=== PATIENT | male | born 1935 | race Caucasian/White ===

== ENCOUNTER 2016-05-20 12:45 | Inpatient (IN) ==
[2016-05-20] MEDS ORDERED: ALLEGRA PO PRN (13:47)
[2016-05-20] MEDS ORDERED: TYLENOL PO PRN ×2 (13:47)
[2016-05-20] MEDS: NS 1,000 ML IV SCH (14:21)
[2016-05-20] MEDS: DUONEB (A & A) INH SCH (14:34)
[2016-05-20 14:38] LABS: ALLEN TEST YES; BLOOD TYPE ARTERIAL; DRAW SITE L RADIAL; METHB 1.6 % (0.0-1.5); O2(CT) 15.8 mL/dL (15.0-23.0); PCO2(98.6) 31 mmHg (35-45); PO2(98.6) 55 mmHg (60-100); SAMPLE BLOOD; SAO2 92.5 % (95.0-100.0); THB 12.7 g/dL (11.5-17.4); pH(98.6) 7.52 (7.35-7.45)
[2016-05-20 14:43] LABS: MODALITY ROOM AIR
--- NOTE | 2016-05-20 14:49 | Diag Imaging Result Document ---
PROCEDURE NAME: CHEST-PORTABLE - 05/20/2016 SINGLE FRONTAL RADIOGRAPH OF THE CHEST: COMPARISON: 04/26/2016. FINDINGS: There is mild elevation of the right hemidiaphragm and there is increased opacity at the right lung base suggesting atelectasis and/or infiltrate. Pneumonia cannot be excluded. A followup PA and lateral radiograph is recommended. The left lung is clear. Cardiac silhouette is unremarkable. IMPRESSION: Left basilar opacity suggesting atelectasis and/or infiltrate as described. Followup PA and lateral radiograph is recommended.
[2016-05-20 15:14] LABS: BASO% 0.1 % (0.0-0.8); HEMOGLOBIN 12.5 g/dL (14.0-18.0); IMM GRAN# 0.13 X1000 (0.0-0.04); IMM GRAN% 0.5 % (0.0-0.5); LYMPH# 0.84 X1000 (1.2-3.4); LYMPH% 3.3 % (20.5-51.1); MANUAL DIFF NEEDED? YES; MCH 28.9 PG (27-31); MCHC 34.7 g/dL (33-37); MCV 83.1 FL (81-99); MONO# 1.27 X1000 (0.11-0.59); MPV 10.1 FL (7.4-10.4); NEUT% 91.1 % (42.2-75.2); PLT 324 X1000 (130-400); RBC 4.33 XMIL (4.7-6.1)
[2016-05-20 15:33] LABS: AGAP 15; ALBUMIN 2.8 g/dL (3.5-5.0); ALKALINE PHOSPHATASE 67 U/L (32-122); BUN 33 mg/dL (8-22); CALCIUM 8.5 mg/dL (8.8-10.2); CHLORIDE 94 mmol/L (98-107); COSMO 274; GOT 31 U/L (10-34); GPT 10 U/L (10-44); POTASSIUM 4.1 mmol/L (3.5-5.1); SODIUM 131 mmol/L (136-145); TCO2 22 mmol/L (25-35); TOTAL BILIRUBIN 1.18 mg/dL (0.20-1.00); TOTAL PROTEIN 6.4 g/dL (6.3-8.3)
[2016-05-20 15:34] LABS: CK PROFILE 283 U/L (24-204)
[2016-05-20] MEDS: ZOSYN 3.375 GM/NS 50 ML IV SCH ×2 (15:54→21:00)
[2016-05-20] MEDS: LOVENOX SUBQ SCH (15:55)
[2016-05-20] MEDS ORDERED: VANCOMYCIN IV PER PHARMACY MISC SCH (16:30)
[2016-05-20 16:46] LABS: BANDS 38 % (0-1); LYMPHS 10 % (21-51); MONO 4 % (1-9)
[2016-05-20 16:51] LABS: CK INDEX 1.4 (0.0-2.5); CK-MB 3.98 ng/mL (0.0-5.0)
[2016-05-20] MEDS: LEVAQUIN 500 MG/D5W 100 ML IV SCH (17:22)
[2016-05-20] MEDS ORDERED: VANCOMYCIN 1.3 GM in NS 250 ML IV ONE (18:00)
--- NOTE | 2016-05-20 18:46 | HISTORY AND PHYSICAL ---
PRIMARY CARE PHYSICIAN: Angel Reyna M.D. CHIEF COMPLAINT: Shortness of breath, alteration of mental status. HISTORY OF PRESENT ILLNESS: This 81-year-old, white male with a very complicated past medical history presents for evaluation of above-mentioned symptoms. Current history of present illness began at the end of March. At that time, patient was admitted to [facility] with a bronchiectasis exacerbation. He was treated with broad-spectrum antibiotic therapy and discharged home in early April on Augmentin therapy. Initially, patient did reasonably well. Unfortunately, over the course of the last several days, he has developed an increasing cough, congestion, wheezing, decreased p.o. intake, weakness, and fatigue. His cough has been intermittently productive of purulent sputum. Since Wednesday, his condition has considerably progressed. The patient's activity level decreased considerably to minimal activity by Wednesday. He has had alteration of his mental status since Wednesday. Patient's states that he has been unable to carry on an accurate conversation. She denies any focal deficits associated. He has not had significant water or food since Wednesday. Patient was evaluated initially in the office. He required wheelchair assistance. Because of his poor condition with significant concern for repeat underlying bronchiectasis exacerbation, patient was admitted to the hospital for full evaluation and management. Of note, he denies fevers, chills, vomiting, chest pains, palpitations, change in bowel movements, and change in urination. He has had some nausea. PAST MEDICAL HISTORY: 1. Abnormal skin examination with multiple actinic keratoses and seborrheic keratoses. 2. History of acute cholecystitis status post laparoscopic cholecystectomy in 1984 without postoperative complications today. 3. History of recurrent acute pancreatitis. 4. Folic acid deficiency. 5. Vitamin B12 deficiency. 6. Benign prostatic hypertrophy. 7. Bronchiectasis. 8. Right bundle branch block. 9. History of chest pain status post negative cardiac evaluation in 2012. 10. Depression/anxiety. 11. Type 2 diabetes. 12. Insomnia. 13. History of diverticulitis in the . 14. Reflux disease. 15. Hypertension. 16. Hypertriglyceridemia. 17. History of a T12 compression fracture in 2010. 18. Right inguinal hernia status post surgical intervention in 2015. 19. Hyperlipidemia. 20. Irritable bowel syndrome. 21. Chronic low back pain status post L4-L5 microdiscectomy in February 2009. 22. Osteoarthritis. 23. Peripheral neuropathy. 24. Pulmonary nodule followed by Dr. Loera. 25. History of acute appendicitis status post open appendectomy in 1969. CURRENT MEDICATIONS: 1. Mildred 180 mg daily as needed. 2. CoQ10 100 mg daily. 3. Flexeril 10 mg 1/2 to 1 tablet 3 times daily as needed. 4. Duloxetine 60 mg daily. 5. Folic acid 1 mg daily. 6. DuoNeb 3 times daily. 7. Lisinopril 40 mg at bedtime. 8. Lyrica 150 mg twice a day. 9. MiraLAX daily as needed. 10. Omeprazole 40 mg daily. 11. Pravastatin 40 mg at bedtime. 12. Phenergan as needed. 13. Senna S twice daily as needed. 14. Flomax 0.4 mg daily. 15. Vitamin B12, 1000 mg daily. 16. Zofran as needed. ALLERGIES: Patient answered no known drug allergies. SOCIAL HISTORY: Patient smokes as much as 2 packs per day starting at age 16. Unfortunately, he continues to smoke 4-5 cigarettes per day. He quit alcohol in 2003. He denies illicit drug use. 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 He enjoys watching sports. He does not exercise routinely. FAMILY HISTORY: Patient's father passed at age 86 secondary to complications of a stroke. Patient's mother passed at age 92 secondary to complications of leukemia. REVIEW OF SYSTEMS: A 12 point review of systems was performed. Pertinent positives are noted in history of present illness. PHYSICAL EXAMINATION: VITAL SIGNS: Temperature 98.4 degrees, heart rate 99, respirations 20, blood pressure is 150/72. GENERAL: Ill-appearing, tachypneic, mild respiratory distress. HEENT: Normocephalic, atraumatic. Pupils equal, round, reactive to light. Extraocular muscles intact. Sclerae anicteric. [place] conjunctivae. Nasopharynx clear without exudate. NECK: Supple. No lymphadenopathy. No thyromegaly. No bruits auscultated. CARDIOVASCULAR: Borderline tachycardic. Regular rhythm. No significant murmurs, rubs, or gallops. PULMONARY: Crackles at the right base. Occasional wheeze. ABDOMEN: Soft, nontender, nondistended. Positive bowel sounds. EXTREMITIES: Moves all extremities well. No significant clubbing, cyanosis, or edema. DERMATOLOGIC: Evaluation reveals no evidence of rash. LABORATORY DATA: White blood cell count 25.40, hemoglobin 12.5, hematocrit 36.0 , platelet count 324,000. 38% banded neutrophils, pH 7.52, pCO2 31, PO2 55, bicarbonate 27. Sodium 131, potassium 4.1, chloride 94, bicarb 22, BUN 33, creatinine 0.8, glucose 166, calcium 8.5, total bilirubin 1.18, total protein 6.4, albumin 2.8, alkaline phosphatase 67, AST 31, ALT 10, CK total 283, CK MB 3.98, troponin 0.102. Chest x-ray revealed right basilar opacity suggesting atelectasis and/or infiltrate. ASSESSMENT AND PLAN: An 81-year-old white male with a complicated past medical history as noted presents for evaluation of alteration of mental status and shortness of breath. A full evaluation has revealed a presumed pneumonia/bronchiectasis exacerbation. White blood cell count and his current clinical condition is concerning for systemic inflammatory response syndrome/sepsis. The patient will be admitted to the hospital for full evaluation and management. 1. Admit to General Medicine. 2. Acute exacerbation of chronic bronchiectasis/pneumonia - At this point, broad -spectrum antibiotics are appropriate. Patient recently was admitted and treated with Augmentin therapy as an outpatient. Because of his potential recent exposures, we will start patient on levofloxacin and Zosyn therapy. We will add MRSA coverage. We will continue DuoNeb. We will check sputum cultures and blood cultures. We will follow patient's clinical course closely. 3. Systemic inflammatory response syndrome/sepsis - With an elevated white blood cell count and alteration of mental status, I am very concerned. His hemodynamics at this point are acceptable. We will start broad-spectrum antibiotics as noted. We will treat patient with IV fluids. Should there be any change in his condition, we will have a low threshold for transfer to the ICU. 4. Elevated CK and minimally elevated troponin - This is certainly concerning for a non-ST- elevation myocardial infarction. In the setting of underlying systemic inflammatory response syndrome/sepsis, I feel treatment of his underlying condition is most appropriate. We will follow serial enzymes. We will aggressively manage patient's underlying infection as noted. This will be followed closely as well. 5. Hypoxia - We will continue patient on oxygen per protocol. 6. Diabetes - We will remain aware. We will follow patient with sliding scale insulin. 7. Hypertension - For now, we will hold his antihypertensive agents. We will resume these once appropriate. 8. Peripheral neuropathy - Patient has longstanding disease, but in the setting of AMS, he is asymptomatic. We will hold his Lyrica therapy. 9. Fluid, electrolytes, nutrition. We will monitor electrolytes. Normal saline at 100 mL an hour. NPO prophylaxis. Patient will be placed on subcutaneous Lovenox. [facility]
[2016-05-20] MEDS: PRAVACHOL PO SCH (21:00)
[2016-05-20] MEDS: MUCINEX PO SCH (21:00)
[2016-05-20 22:39] LABS: CK INDEX 1.3 (0.0-2.5); CK-MB 3.92 ng/mL (0.0-5.0)
[2016-05-20] MEDS ORDERED: ATIVAN IV PRN (22:54)
[2016-05-21 02:06] LABS: URINE SOURCE CATH
[2016-05-21 02:18] LABS: BILIRUBIN URINE NEGATIVE (NEGATIVE); BLOOD URINE NEGATIVE (NEGATIVE); CLARITY CLEAR (CLEAR); COLOR YELLOW; GLUCOSE URINE NEGATIVE (NEGATIVE); LEUKOCYTES URINE NEGATIVE (NEGATIVE); NITRITE URINE NEGATIVE (NEGATIVE); PH URINE 6.5; PROTEIN URINE 100 mg/dL (NEGATIVE); URINE CULTURE NEEDED? YES; URINE EPITHELIAL CELLS <10 /HPF (<10); URINE RBC <10 /HPF (<10); URINE WBC <10 /HPF (<10); UROBILINOGEN URINE 0.2 EU/dL (0.2-1.0)
[2016-05-21 03:06] LABS: UR AMPHETAMINES QUAL NONE DETECTED (NONE DETECT); UR BARBITUATES QUAL NONE DETECTED (NONE DETECT); UR BENZODIAZEPIN QUAL NONE DETECTED (NONE DETECT); UR CANNABINOIDS QUAL NONE DETECTED (NONE DETECT); UR COCAINE QUAL NONE DETECTED (NONE DETECT); UR METHADONE QUAL NONE DETECTED (NONE DETECT); UR OPIATES QUAL PRESUMPTIVE POSITIVE (NONE DETECT); UR OXYCODONE QUAL NONE DETECTED (NONE DETECT); UR PCP QUAL NONE DETECTED (NONE DETECT)
[2016-05-21] MEDS: ZOSYN 3.375 GM/NS 50 ML IV SCH ×4 (04:04→21:14)
[2016-05-21] MEDS: NS 1,000 ML IV SCH ×2 (04:05→21:12)
[2016-05-21 05:46] LABS: AGAP 12; ALBUMIN 2.6 g/dL (3.5-5.0); ALKALINE PHOSPHATASE 65 U/L (32-122); BUN 28 mg/dL (8-22); CALCIUM 7.9 mg/dL (8.8-10.2); CHLORIDE 101 mmol/L (98-107); COSMO 277; GOT 30 U/L (10-34); GPT 10 U/L (10-44); POTASSIUM 3.7 mmol/L (3.5-5.1); SODIUM 136 mmol/L (136-145); TCO2 23 mmol/L (25-35); TOTAL BILIRUBIN 1.07 mg/dL (0.20-1.00); TOTAL PROTEIN 5.1 g/dL (6.3-8.3)
[2016-05-21 05:52] LABS: EOS# 0.01 X1000 (0.0-0.7); HEMATOCRIT 32.2 % (42.0-52.0); HEMOGLOBIN 11.2 g/dL (14.0-18.0); IMM GRAN# 0.17 X1000 (0.0-0.04); IMM GRAN% 0.8 % (0.0-0.5); LYMPH# 1.25 X1000 (1.2-3.4); LYMPH% 5.8 % (20.5-51.1); MANUAL DIFF NEEDED? YES; MCH 28.6 PG (27-31); MCHC 34.8 g/dL (33-37); MCV 82.4 FL (81-99); MONO# 1.31 X1000 (0.11-0.59); MONO% 6.1 % (1.7-9.3); MPV 10.3 FL (7.4-10.4); NEUT% 87.3 % (42.2-75.2); PLT 303 X1000 (130-400); RBC 3.91 XMIL (4.7-6.1)
[2016-05-21] MEDS: PRILOSEC PO SCH (06:09)
--- NOTE | 2016-05-21 06:18 | EKG Report ---
Test Performed on : 05/20/2016 1:51:30 PM Test Reason : AMS Blood Pressure : / mmHG Vent. Rate : 102 BPM Atrial Rate : 102 BPM P-R Int : 156 ms QRS Dur : 142 ms QT Int : 378 ms P-R-T Axes : 079 -42 050 degrees QTc Int : 492 ms Sinus tachycardia. Left axis deviation Right bundle branch block Abnormal ECG When compared with ECG of 26-APR-2016 09:06, premature atrial complexes. are no longer present Unconfirmed Result
[2016-05-21 08:46] LABS: BANDS 4 % (0-1); LYMPHS 6 % (21-51); MONO 8 % (1-9)
[2016-05-21] MEDS ORDERED: CALMOSEPTINE OINTMENT TOP PRN (08:46)
--- NOTE | 2016-05-21 10:04 | Diag Imaging Result Document ---
PROCEDURE NAME: HEAD W/O CONTRAST - 05/21/2016 CT OF THE HEAD WITHOUT CONTRAST: FINDINGS: There is some periventricular white matter lucency particularly in the area of the frontal horns. There is no evidence of mass effect, bleed, or abnormal extraaxial fluid collection. The visualized paranasal sinuses are without evidence of air-fluid level and there are no acute bony abnormalities. There is a calcification in the left basal ganglia and a small lacune present near the genu of the right internal capsule. These abnormalities were also present at the time of the previous study of 07/27/2015. IMPRESSION: Chronic microvascular changes. No evidence of acute intracranial disease.
[2016-05-21] MEDS: MIRALAX PO SCH (10:40)
[2016-05-21] MEDS: VITAMIN B-12 PO SCH (10:40)
[2016-05-21] MEDS: MUCINEX PO SCH ×2 (10:40→21:14)
[2016-05-21] MEDS: FLOMAX PO SCH (10:41)
[2016-05-21] MEDS: COENZYME Q10 PO SCH (10:41)
[2016-05-21 12:28] LABS: INR 1.01; PROTIME 10.7 Seconds (9.2-11.7); PTT 35.4 Seconds (22.0-36.0)
[2016-05-21] MEDS ORDERED: NS 250 ML ONE (12:38)
[2016-05-21] MEDS: LOVENOX SUBQ SCH (15:13)
[2016-05-21] MEDS: FOLIC ACID PO SCH (15:14)
[2016-05-21] MEDS: CYMBALTA PO SCH (15:14)
[2016-05-21] MEDS: LEVAQUIN 500 MG/D5W 100 ML IV SCH (15:17)
[2016-05-21] MEDS: VANCOMYCIN 1 GM/NS 250 ML IV SCH (17:51)
[2016-05-21] MEDS: PRAVACHOL PO SCH (21:14)
--- NOTE | 2016-05-21 21:32 | PROGRESS NOTE ---
DATE: 05/21/2016 SUBJECTIVE: The patient was originally seen this morning. At that time, his overall condition had improved slightly. He was requiring supplemental oxygen therapy. He remained confused, but was more interactive. Because of the confusion, a CT scan of the head was performed. This returned with chronic microvascular ischemic changes. No evidence of acute process was identified. The patient was continued on antibiotic therapy and bronchodilators throughout the day. This evening, patient's condition had further improved. He was able to recognize me this evening, although knew only mild 1st name. He was sitting in a chair with assistance by his son. There has been no evidence of fevers, chills, nausea, vomiting, or chest discomfort. OBJECTIVE: Vital signs: Temperature maximum 99.2 degrees, heart rate 61-99, respirations 18-36, blood pressure 124-159/53-76. General: Chronically ill-appearing, in no acute distress. Cardiovascular: Regular rate and rhythm. No significant murmurs, rubs, or gallops. Pulmonary: Rhonchi and crackles at the left base. Abdomen: Soft, nontender, nondistended. Positive bowel sounds. Extremities: Moves all extremities well. No significant clubbing, cyanosis, or edema. Dermatologic: Evaluation reveals no evidence of rash. LABORATORY DATA: White blood cell count 21.57, hemoglobin 11.2, hematocrit 32.2, platelet count 303,000. Sodium 136, potassium 3.7, chloride 101, bicarb 23, BUN 28, creatinine 1.8, glucose 99, calcium 7.9, total bilirubin 1.07, total protein is 5.1, albumin 2.6, alkaline phosphatase 65, AST 38, ALT 10. ASSESSMENT AND PLAN: 1. Acute exacerbation of chronic bronchiectasis/pneumonia-at this point, broad-spectrum antibiotics remain appropriate. Blood cultures have been sent and are pending. A sputum culture was sent today. As his overall condition is improving, we will continue his current regimen, including antibiotics, bronchodilators and aspiration precautions. 2. Systemic inflammatory response syndrome/sepsis-patient white blood cell count has improved slightly. His mental status has also improved slightly. For now, we will continue aggressive antibiotic coverage and IV fluids. We will follow his clinical course closely. 3. Elevated creatinine kinase/minimally elevated troponin-this is concerning for underlying heart disease. Unfortunately, in the setting of underlying infection, we are unable to aggressively manage this condition. We will continue treatment of his underlying infection. As an outpatient, we will plan to pursue further cardiac evaluation. 4. Hypoxia-we will continue oxygen per protocol. 5. Diabetes-we will continue patient on sliding scale insulin. 6. Hypertension-patient's blood pressure is stable at present time. We will continue to hold his antihypertensive agents. 7. Peripheral neuropathy-patient has longstanding disease. He is treated with Lyrica as an outpatient. He has not had this resumed as his mental status has not returned to baseline. We will continue to follow this. 8. Alteration of mental status-patient's mental status is slowly improving. As above, his CT scan returned with microvascular ischemic changes. We will continue supportive care. 9. Narcotic drug use-patient's urine drug screen returned presumptive positive for narcotics. This is concerning as I was unaware he was taking any narcotic agents. The question has been raised whether patient took more narcotic agents resulting in an underlying aspiration event. We will continue to follow. 10. Disposition-at this point, patient continues to require nursing home care in the hospital setting. We will plan discharge home once appropriate.
[2016-05-22] MEDS: NS 1,000 ML IV SCH ×3 (01:29→18:59)
[2016-05-22] MEDS: ZOSYN 3.375 GM/NS 50 ML IV SCH ×4 (03:31→20:46)
[2016-05-22 05:36] LABS: AGAP 15; ALBUMIN 2.3 g/dL (3.5-5.0); ALKALINE PHOSPHATASE 55 U/L (32-122); BUN 24 mg/dL (8-22); CHLORIDE 104 mmol/L (98-107); COSMO 282; GOT 25 U/L (10-34); GPT 11 U/L (10-44); POTASSIUM 3.3 mmol/L (3.5-5.1); SODIUM 139 mmol/L (136-145); TCO2 20 mmol/L (25-35); TOTAL BILIRUBIN 0.78 mg/dL (0.20-1.00); TOTAL PROTEIN 5.4 g/dL (6.3-8.3)
[2016-05-22 05:49] LABS: BASO% 0.3 % (0.0-0.8); EOS# 0.05 X1000 (0.0-0.7); EOS% 0.3 % (0.0-10.0); HEMOGLOBIN 10.9 g/dL (14.0-18.0); IMM GRAN# 0.48 X1000 (0.0-0.04); IMM GRAN% 3.2 % (0.0-0.5); LYMPH# 1.61 X1000 (1.2-3.4); LYMPH% 10.8 % (20.5-51.1); MANUAL DIFF NEEDED? YES; MCH 29.1 PG (27-31); MCHC 35.2 g/dL (33-37); MCV 82.9 FL (81-99); MONO% 9.4 % (1.7-9.3); MPV 10.2 FL (7.4-10.4); PLT 277 X1000 (130-400); RBC 3.74 XMIL (4.7-6.1)
[2016-05-22] MEDS: PRILOSEC PO SCH (06:14)
[2016-05-22 06:59] LABS: BANDS 2 % (0-1); HYPOCHROM 1+; LYMPHS 8 % (21-51); MONO 8 % (1-9)
[2016-05-22] MEDS: VITAMIN B-12 PO SCH (08:15)
[2016-05-22] MEDS: MUCINEX PO SCH ×2 (08:15→20:44)
[2016-05-22] MEDS: PRINIVIL PO SCH (08:15)
[2016-05-22] MEDS: MIRALAX PO SCH (08:15)
[2016-05-22] MEDS: CYMBALTA PO SCH (08:15)
[2016-05-22] MEDS: LYRICA PO SCH ×2 (08:15→20:45)
[2016-05-22] MEDS: FLOMAX PO SCH (08:15)
[2016-05-22] MEDS: FOLIC ACID PO SCH (08:16)
[2016-05-22] MEDS: COENZYME Q10 PO SCH (08:16)
--- NOTE | 2016-05-22 11:26 | Diag Imaging Result Document ---
PROCEDURE NAME: CHEST-2 VIEWS - 05/22/2016 SEATED AP AND LATERAL RADIOGRAPH OF THE CHEST: COMPARISON: 05/20/2016. FINDINGS: There is grossly stable opacity at the right lung base suggesting infiltrate. No new consolidations are identified. Cardiac silhouette is stable. There has been interval placement of a right PICC line. The tip projects over the region of the atriocaval junction in the expected position. IMPRESSION: Grossly stable right basilar infiltrate as described.
[2016-05-22] MEDS: LOVENOX SUBQ SCH (14:23)
[2016-05-22] MEDS: LEVAQUIN 500 MG/D5W 100 ML IV SCH (15:26)
[2016-05-22] MEDS: VANCOMYCIN 1 GM/NS 250 ML IV SCH (17:46)
--- NOTE | 2016-05-22 18:46 | PROGRESS NOTE ---
DATE: 05/22/2016 SUBJECTIVE: This morning, patient's overall condition continues to very slowly improve. The patient is able to recognize me and voiced my first name, but unable to voice my last. He remains very weak, unable to stand without assistance. His pulmonary status is stable with oxygen supplementation. He has had no evidence of fevers and chills. He has had very little p.o. intake, largely secondary to refusing to take liquids. There has been no evidence of fevers, chills, nausea, vomiting, or chest discomfort. OBJECTIVE: Vital Signs: T-max is 98.4 degrees, heart rate 56-64, respirations 18, blood pressure 144-176/65-76. General: Well-nourished, well-developed, in no acute distress. Cardiovascular: Regular rate and rhythm. No significant murmurs, rubs, or gallops. Pulmonary: Crackles at the left base. Abdomen: Soft, nontender, nondistended. Positive bowel sounds. Extremities: Moves all extremities well. No significant clubbing, cyanosis, or edema. Dermatologic: Evaluation reveals no evidence of rash. LABORATORY DATA: White blood cell count 14.91, hemoglobin 10.9, hematocrit 31.0, platelet count 277,000. Sodium 139, potassium 3.3, chloride 104, bicarb 20, BUN 24, creatinine 0.7, glucose 97, calcium 8.0, total bilirubin 0.78, total protein 5.4, albumin 2.3, alkaline phosphatase 55, AST 25, ALT 11. ASSESSMENT AND PLAN: 1. Acute exacerbation of chronic bronchiectasis/pneumonia - The patient's blood cultures thus far are negative. His sputum culture is pending. Chest x-ray today has suggested no significant change. At this point, with the severity of his admitting symptoms, we will continue broad- spectrum antibiotics until further culture data is available. We will continue bronchodilators, aspiration precautions, and encourage incentive spirometry. 2. Systemic inflammatory response syndrome/sepsis- The patient's white blood cell count was grossly elevated upon admission. He had alteration of mental status. With aggressive management, he has achieved improvement, although mentation is not back to baseline. We will continue broad-spectrum antibiotics as noted. 3. Elevated CK/minimally elevated troponin - This likely was secondary to his acute illness. There has been no evidence of significant EKG changes. At this point, we will continue to monitor patient closely while hospitalized. Once his overall condition has improved, we will consider cardiac evaluation. 4. Hypoxia - We will continue patient on oxygen protocol. 5. Alteration of mental status - Patient's CT scan returned with microvascular ischemic changes. His mentation is improving, although not back to baseline. We will remain aware that patient could be exhibiting some withdrawal symptoms. He has been taking narcotic agents without my knowledge. We will follow this. 6. Diabetes - The patient will be continued on sliding scale insulin. 7. Hypertension - Patient's blood pressure is elevated. We will resume lisinopril therapy. We will follow this. 8. Narcotic drug use - As above, patient's urine drug screen returned with a presumptive positive. Patient's states she suspects he had been taken medication from a pain clinic. For now, we will follow. All pain medications have been held. 9. Disposition - At this point, patient continues to require [facility] care in a hospital setting. We will plan discharge home once appropriate.
[2016-05-22] MEDS: PRAVACHOL PO SCH (20:45)
[2016-05-23] MEDS: ZOSYN 3.375 GM/NS 50 ML IV SCH ×2 (03:28→08:43)
[2016-05-23 05:38] LABS: BASO% 0.3 % (0.0-0.8); EOS# 0.04 X1000 (0.0-0.7); EOS% 0.3 % (0.0-10.0); HEMATOCRIT 30.6 % (42.0-52.0); HEMOGLOBIN 10.5 g/dL (14.0-18.0); IMM GRAN# 1.01 X1000 (0.0-0.04); IMM GRAN% 7.6 % (0.0-0.5); LYMPH# 2.01 X1000 (1.2-3.4); LYMPH% 15.2 % (20.5-51.1); MANUAL DIFF NEEDED? YES; MCH 28.5 PG (27-31); MCHC 34.3 g/dL (33-37); MCV 83.2 FL (81-99); MONO# 1.62 X1000 (0.11-0.59); MONO% 12.2 % (1.7-9.3); MPV 9.9 FL (7.4-10.4); NEUT% 64.4 % (42.2-75.2); PLT 285 X1000 (130-400); RBC 3.68 XMIL (4.7-6.1)
[2016-05-23 06:04] LABS: AGAP 11; BUN 16 mg/dL (8-22); CALCIUM 7.6 mg/dL (8.8-10.2); CHLORIDE 105 mmol/L (98-107); COSMO 274; SODIUM 137 mmol/L (136-145); TCO2 21 mmol/L (25-35)
[2016-05-23] MEDS: PRILOSEC PO SCH (06:16)
[2016-05-23] MEDS: DUONEB (A & A) INH SCH ×9 (06:25→23:41)
[2016-05-23 07:01] LABS: BANDS 3 % (0-1); LYMPHS 17 % (21-51); MONO 10 % (1-9)
[2016-05-23] MEDS: LYRICA PO SCH ×2 (08:42→20:58)
[2016-05-23] MEDS: MUCINEX PO SCH ×2 (08:43→20:58)
[2016-05-23] MEDS: FOLIC ACID PO SCH (08:43)
[2016-05-23] MEDS: VITAMIN B-12 PO SCH (08:43)
[2016-05-23] MEDS: COENZYME Q10 PO SCH (08:43)
[2016-05-23] MEDS: PRINIVIL PO SCH (08:43)
[2016-05-23] MEDS: FLOMAX PO SCH (08:43)
[2016-05-23] MEDS: CYMBALTA PO SCH (08:43)
[2016-05-23] MEDS: MIRALAX PO SCH (08:44)
[2016-05-23] MEDS: ZOFRAN ODT PO PRN ×2 (09:38→18:47)
[2016-05-23] MEDS: KLOR-CON PO SCH ×2 (14:12→20:57)
[2016-05-23] MEDS: LOVENOX SUBQ SCH (14:13)
[2016-05-23] MEDS: NS 1,000 ML IV SCH (14:13)
[2016-05-23] MEDS: NORCO-7.5 PO SCH ×3 (14:13→20:58)
[2016-05-23] MEDS: LEVAQUIN 500 MG/D5W 100 ML IV SCH (14:14)
[2016-05-23] MEDS: PRAVACHOL PO SCH (20:59)
[2016-05-24] MEDS: DUONEB (A & A) INH SCH ×6 (03:54→23:28)
[2016-05-24] MEDS: FLOMAX PO SCH (08:53)
[2016-05-24] MEDS: PRILOSEC PO SCH (08:53)
[2016-05-24] MEDS: COENZYME Q10 PO SCH (08:53)
[2016-05-24] MEDS: CYMBALTA PO SCH (08:53)
[2016-05-24] MEDS: NORCO-7.5 PO SCH ×3 (08:53→20:09)
[2016-05-24] MEDS: FOLIC ACID PO SCH (08:54)
[2016-05-24] MEDS: MIRALAX PO SCH (08:54)
[2016-05-24] MEDS: LYRICA PO SCH ×2 (08:54→20:09)
[2016-05-24] MEDS: KLOR-CON PO SCH ×2 (08:54→20:09)
[2016-05-24] MEDS: VITAMIN B-12 PO SCH (08:54)
[2016-05-24] MEDS: MUCINEX PO SCH ×2 (08:54→20:09)
[2016-05-24] MEDS: PRINIVIL PO SCH (08:54)
[2016-05-24] MEDS: LOVENOX SUBQ SCH (13:58)
[2016-05-24] MEDS: LEVAQUIN 500 MG/D5W 100 ML IV SCH (13:58)
[2016-05-24] MEDS: PRAVACHOL PO SCH (20:09)
[2016-05-25] MEDS: DUONEB (A & A) INH SCH ×6 (03:12→22:48)
[2016-05-25] MEDS: PRILOSEC PO SCH (06:13)
[2016-05-25] MEDS: NORCO-7.5 PO SCH ×2 (09:31→15:01)
[2016-05-25] MEDS: MUCINEX PO SCH ×2 (09:31→20:14)
[2016-05-25] MEDS: LYRICA PO SCH ×2 (09:31→20:14)
[2016-05-25] MEDS: PRINIVIL PO SCH (09:31)
[2016-05-25] MEDS: VITAMIN B-12 PO SCH (09:31)
[2016-05-25] MEDS: FOLIC ACID PO SCH (09:31)
[2016-05-25] MEDS: FLOMAX PO SCH (09:31)
[2016-05-25] MEDS: COENZYME Q10 PO SCH (09:32)
[2016-05-25] MEDS: CYMBALTA PO SCH (09:32)
[2016-05-25] MEDS: MIRALAX PO SCH (09:33)
[2016-05-25] MEDS: KLOR-CON PO SCH ×2 (09:39→20:14)
--- NOTE | 2016-05-25 10:11 | Diag Imaging Result Document ---
PROCEDURE NAME: CHEST-2 VIEWS - 05/25/2016 CHEST X-RAY, TWO VIEWS: COMPARISON: 05/22/2016. FINDINGS: Lung volumes are lower with some elevation of the right hemidiaphragm. There is significant improvement in the diffuse bilateral mixed predominantly interstitial infiltrates/edema. The heart size remains normal. No pneumothorax or large effusion. Stable right PICC line. IMPRESSION: Significant improvement in aeration of the lungs.
[2016-05-25 10:20] LABS: BASO% 0.6 % (0.0-0.8); EOS# 0.13 X1000 (0.0-0.7); EOS% 0.7 % (0.0-10.0); HEMATOCRIT 33.2 % (42.0-52.0); HEMOGLOBIN 11.3 g/dL (14.0-18.0); IMM GRAN# 1.73 X1000 (0.0-0.04); LYMPH# 1.91 X1000 (1.2-3.4); MANUAL DIFF NEEDED? YES; MCH 28.6 PG (27-31); MCV 84.1 FL (81-99); MONO% 6.3 % (1.7-9.3); MPV 9.1 FL (7.4-10.4); NEUT% 71.4 % (42.2-75.2); PLT 385 X1000 (130-400); RBC 3.95 XMIL (4.7-6.1)
[2016-05-25 10:40] LABS: AGAP 13; ALBUMIN 2.3 g/dL (3.5-5.0); ALKALINE PHOSPHATASE 51 U/L (32-122); BUN 10 mg/dL (8-22); CALCIUM 7.7 mg/dL (8.8-10.2); CHLORIDE 104 mmol/L (98-107); COSMO 274; GOT 20 U/L (10-34); GPT 11 U/L (10-44); POTASSIUM 3.5 mmol/L (3.5-5.1); SODIUM 137 mmol/L (136-145); TCO2 20 mmol/L (25-35); TOTAL BILIRUBIN 0.34 mg/dL (0.20-1.00); TOTAL PROTEIN 4.9 g/dL (6.3-8.3)
[2016-05-25 11:49] LABS: BANDS 6 % (0-1); HYPOCHROM 1+; LYMPHS 12 % (21-51); MONO 10 % (1-9)
[2016-05-25] MEDS: LOVENOX SUBQ SCH (15:01)
[2016-05-25] MEDS: LEVAQUIN 500 MG/D5W 100 ML IV SCH (15:01)
[2016-05-25] MEDS: PRAVACHOL PO SCH (20:14)
[2016-05-25] MEDS: NORCO-7.5 PO PRN (20:15)
[2016-05-25] MEDS: DOXYCYCLINE 100 MG in NS 250 ML IV SCH (20:30)
--- NOTE | 2016-05-26 00:53 | PROGRESS NOTE ---
DATE: 05/25/2016 SUBJECTIVE: The events of the weekend were reviewed. In summary, patient's antibiotics were tapered to include only levofloxacin therapy. Patient continued on oxygen therapy, as well as, physical therapy. His overall condition slowly improved. His mentation improved nearing baseline. Patient was initially seen this morning. He was wearing oxygen therapy. He denies fevers, chills, nausea, vomiting, or chest discomfort. His shortness of breath had improved. Through the day, patient's oxygen was titrated off. This evening, patient continues to do well. His white blood cell count, however, has increased. His chest x-ray suggested improvement. OBJECTIVE: vital signs: T-max 98.8, heart rate, 85 to 96, respirations 15 to 18, blood pressure 134 to 154/54 to 67. General: Well nourished, well developed, in no acute distress. Cardiovascular: Regular rate and rhythm. No significant murmurs, rubs, or gallops. Pulmonary: Crackles at the left base. Adequate air movement. Abdomen: Soft, nontender, nondistended. Positive bowel sounds. Extremities: Moves all extremities well. No significant clubbing, cyanosis, or edema. Dermatologic: Reveals no evidence of rash. LABORATORY DATA: White blood cell count 17.35, hemoglobin 11.3, hematocrit 33.2, platelet count 385,000. Sodium 137, potassium 3.5, chloride 104, bicarb 20, BUN 10, creatinine 0.7, glucose 121, calcium 7.7, total bilirubin 0.34, total protein 4.9, albumin 2.3, alkaline phosphatase 51, AST 20, ALT 11. ASSESSMENT AND PLAN: 1. Acute exacerbation of chronic bronchiectasis/pneumonia - clinically, patient is improving. His chest x-ray also had suggested improvement. His white blood cell count, however, has increased since decreasing his antibiotic coverage. We will continue levofloxacin therapy. We will add doxycycline therapy. We will consider an Infectious Diseases consultation in the morning. We will continue aspiration precautions, and incentive spirometry as well. 2. Systemic inflammatory response syndrome - patient was diagnosed upon admission. Patient has achieved resolution with broad-spectrum antibiotic coverage. 3. Elevated CK/minimally elevated troponin - patient is currently asymptomatic. Once patient has resolved his bronchiectasis exacerbation, we will need to consider Cardiology consultation and intervention. 4. Hypoxia - as above, patient has been titrated off of oxygen therapy. We will remain aware. 5. Alteration of mental status - this likely was secondary to his underlying acute illness. We will remain aware also of patient's recent narcotic medication intervention. He has achieved near full resolution. We will continue to follow. 6. Diabetes - patient is treated with sliding scale insulin. 7. Hypertension - patient's blood pressure is reasonably controlled on his current regimen. 8. Narcotic use - as described previously, it appears the patient has been using MS Contin as an outpatient. I was not aware of this, nor was the patient forthcoming regarding this. He was placed on [place] over the weekend. His pain is controlled. 9. Disposition - at this point, patient continues to require prison care in the hospital setting. We will consider discharge home once appropriate.
[2016-05-26] MEDS: DUONEB (A & A) INH SCH ×4 (03:27→15:11)
[2016-05-26 05:10] LABS: BASO% 0.3 % (0.0-0.8); EOS# 0.08 X1000 (0.0-0.7); EOS% 0.6 % (0.0-10.0); HEMATOCRIT 31.1 % (42.0-52.0); HEMOGLOBIN 10.5 g/dL (14.0-18.0); IMM GRAN% 6.9 % (0.0-0.5); LYMPH% 21.6 % (20.5-51.1); MANUAL DIFF NEEDED? YES; MCH 28.4 PG (27-31); MCHC 33.8 g/dL (33-37); MCV 84.1 FL (81-99); MONO# 1.01 X1000 (0.11-0.59); MONO% 7.8 % (1.7-9.3); MPV 9.1 FL (7.4-10.4); NEUT% 62.8 % (42.2-75.2); PLT 419 X1000 (130-400)
[2016-05-26] MEDS: PRILOSEC PO SCH (06:12)
[2016-05-26 07:02] LABS: BANDS 2 % (0-1); LYMPHS 21 % (21-51); MONO 6 % (1-9)
[2016-05-26] MEDS: DOXYCYCLINE 100 MG in NS 250 ML IV SCH (08:13)
[2016-05-26] MEDS: VITAMIN B-12 PO SCH (09:12)
[2016-05-26] MEDS: PRINIVIL PO SCH (09:12)
[2016-05-26] MEDS: MIRALAX PO SCH (09:12)
[2016-05-26] MEDS: LYRICA PO SCH (09:12)
[2016-05-26] MEDS: MUCINEX PO SCH (09:13)
[2016-05-26] MEDS: FOLIC ACID PO SCH (09:13)
[2016-05-26] MEDS: FLOMAX PO SCH (09:13)
[2016-05-26] MEDS: CYMBALTA PO SCH (09:13)
[2016-05-26] MEDS: COENZYME Q10 PO SCH (09:13)
[2016-05-26] MEDS: LOVENOX SUBQ SCH (13:41)
[2016-05-26] MEDS: LEVAQUIN 500 MG/D5W 100 ML IV SCH (15:06)
[2016-05-26 16:56] VITALS: BP 161/75
[2016-05-26] MEDS: NORCO-7.5 PO PRN (17:35)
--- NOTE | 2016-05-26 22:34 | DISCHARGE SUMMARY ---
ADMISSION DATE: 05/20/2016 DISCHARGE DATE: 05/26/2016 ADMISSION DIAGNOSES: 1. Shortness of breath. 2. Alteration of mental status. DISCHARGE DIAGNOSES: 1. Acute exacerbation of chronic bronchiectasis/pneumonia. 2. Systemic inflammatory response syndrome, resolved. 3. Elevated CK/minimally elevated troponin. 4. Hypoxia, resolved. 5. Alteration in mental status resolved to baseline. 6. Diabetes, present on arrival. 7. Hypertension, present on arrival. 8. Narcotic use. PROCEDURES: 1. CT scan of the head was performed on 05/21/2016 which revealed chronic microvascular changes. No evidence of acute intracranial disease. 2. Multiple chest x-rays were performed. CONSULTATIONS: None. HISTORY AND PHYSICAL EXAMINATION: See admit note. PHYSICAL EXAMINATION PRIOR TO DISCHARGE: Vital Signs: Temperature 98.6 degrees , heart rate 79, respirations 16, blood pressure is 161/75. General: Well-nourished, well- developed, no acute distress. Cardiovascular: Regular rate and rhythm. No significant murmurs, rubs, or gallops. Pulmonary: Crackles at bilateral bases. Adequate air movement. Abdomen: Soft, nontender, nondistended. Positive bowel sounds. Extremities: Moves all extremities well. No significant clubbing, cyanosis, or edema. Dermatologic: Evaluation reveals no evidence of rash. LABORATORY DATA: White blood cell count 12.96, hemoglobin 10.5, hematocrit 31.1 , platelet count 419,000. HOSPITAL COURSE: The patient was admitted as per history and physical examination. Hospital course per condition is as follows. 1. Acute exacerbation of chronic bronchitis/pneumonia-upon admission, patient was noted to be critically ill. The patient was placed on broad-spectrum antibiotics in form of levofloxacin, Zosyn and vancomycin. Patient tolerated this very well. With broad- spectrum antibiotic coverage, patient's overall condition slowly improved. With improvement, patient's antibiotics were decreased to Levaquin only. With this the patient continues to improve clinically however white blood cell count increased. Doxycycline was added. The patient achieved improvement in white blood cell count. Patient will be discharged home with bronchodilators and Levofloxacin/doxycycline for an additional 2 weeks. 2. Systemic inflammatory response syndrome-upon admission patient was noted to be considerably ill. With aggressive management with both hydration and antibiotic coverage , patient's overall condition improved. We will continue to follow this as an outpatient. 3. Elevated CK/minimally elevated troponin-present time patient is asymptomatic. As patient continues to improve we will plan to refer patient to Cardiology for further evaluation and management. 4. Hypoxia-while hospitalized, patient required oxygen therapy. At time of discharge saturations were adequate on room air. This will be followed. 5. Alteration of mental status-upon admission, patient was noted to be considerably altered. Ultimately, we found that patient was receiving narcotic intervention per a pain specialist without my knowledge. I suspect the mental status change was secondary to narcotics in the setting of an acute illness. We will continue to follow this. 6. Diabetes-patient was treated with sliding scale insulin while hospitalized. We will follow this as an outpatient. 7. Hypertension-patient's blood pressure has fluctuated but overall has been reasonably controlled. Once again, this will be followed. 8. Hypertension-patient's blood pressure maintained adequate control while hospitalized. 9. Tobacco use-unfortunately, patient continues to intermittently use cigarettes. He understands associated risk. We will encourage cessation. 10. Narcotic abuse-at this point, patient appears to be taking narcotics without my knowledge. We discussed this in detail. The patient assured me that he would continue to pursue the least amount of effective medications. DISCHARGE CONDITION: Good. DISPOSITION: Discharge to home. MEDICATIONS: 1. Vitamin B12 1000 mcg daily. 2. Doxycycline 100 mg twice daily for 14 days. 3. Mildred 180 mg daily as needed. 4. Levofloxacin 500 mg daily for 14 days. 5. Acetaminophen 650 mg every 4 hours as needed. 6. DuoNeb every 4 hours as needed. 7. Flexeril 10 mg 3 times daily as needed. 8. Cymbalta 60 mg daily. 9. Folic acid 1 mg daily. 10. Guaifenesin 600 mg twice daily as needed. 11. Lisinopril 40 mg daily. 12. Omeprazole 40 mg daily. 13. Pravastatin 40 mg at bedtime. 14. MiraLAX 17 g in 8 ounces of juice daily. 15. Lyrica 200 mg twice daily. 16. Tamsulosin 0.4 mg daily. 17. Coenzyme Q10 100 mg daily. FOLLOWUP: The patient to follow with me in approximately 1 week. [facility]
--- NOTE | 2016-06-18 18:15 | DISCHARGE SUMMARY ---
ADMISSION DATE: 05/20/2016 DISCHARGE DATE: 05/26/2016 DISCHARGE SUMMARY ADDENDUM: After further review, patient was admitted with a white blood cell count of 25.40 with alteration of mental status and an elevated lactic acid level. Patient's condition does meet criteria for bronchiectasis/pneumonia with sepsis. In regards to his alteration of mental status, this likely represented a combination of his acute illness and decreased clearance of narcotic medications. This could be further classified as alteration of mental status secondary to an acute illness in addition to toxic encephalopathy secondary to medications.
== END 2016-05-26 18:45 | disposition home or self-care (01) | DRG 871 ==
LOC: DIRADM 12:45 → 3N 13:37 → 3S 19:18
PROVIDERS: ADMIT Internal Medicine; ATTEND Internal Medicine
DX: A41.9 Sepsis, unspecified organism (principal); J18.9 Pneumonia, unspecified organism; G92 Toxic encephalopathy; J47.0 Bronchiectasis with acute lower respiratory infection; E11.42 Type 2 diabetes mellitus with diabetic polyneuropathy; I45.10 Unspecified right bundle-branch block; J47.1 Bronchiectasis with (acute) exacerbation; R09.02 Hypoxemia; I10 Essential (primary) hypertension; L57.0 Actinic keratosis; L82.1 Other seborrheic keratosis; E53.8 Deficiency of other specified B group vitamins; N40.0 Benign prostatic hyperplasia without lower urinary tract symptoms; F41.8 Other specified anxiety disorders; G47.00 Insomnia, unspecified; K21.9 Gastro-esophageal reflux disease without esophagitis; E78.1 Pure hyperglyceridemia; K58.9 Irritable bowel syndrome, unspecified; G89.29 Other chronic pain; M54.5 Low back pain; M19.90 Unspecified osteoarthritis, unspecified site; R91.1 Solitary pulmonary nodule; F17.210 Nicotine dependence, cigarettes, uncomplicated; R74.8 Abnormal levels of other serum enzymes; F11.10 Opioid abuse, uncomplicated; T40.2X5A Adverse effect of other opioids, initial encounter; Z79.899 Other long term (current) drug therapy; Z82.3 Family history of stroke; Z80.6 Family history of leukemia; Z79.891 Long term (current) use of opiate analgesic
CPT/HCPCS: 36569; 70450; 71010; 71020; 80048; 80053; 81001; 82550; 82553; 82805; 84484; 85025; 85610; 85730; 87040; 87070; 87088; 87205; 93005; 94640; 94761; 94799; G0480; J1650; J2060; J2543; J3370; J7030; J7050; 80324; 80345; 80346; 80349; 80353; 80358; 80361; 80365; 83992; 97116-GP; 97530-GP

== ENCOUNTER 2016-07-17 15:46 | Inpatient (IN) ==
[2016-07-17] MEDS ORDERED: MUCINEX PO PRN (16:30)
[2016-07-17] MEDS ORDERED: TYLENOL PO PRN ×2 (16:30)
[2016-07-17] MEDS ORDERED: FLEXERIL PO PRN (16:30)
[2016-07-17] MEDS ORDERED: ALLEGRA PO PRN (16:30)
--- NOTE | 2016-07-17 17:05 | HISTORY AND PHYSICAL ---
PRIMARY CARE PHYSICIAN: Dr. Angel Reyna CHIEF COMPLAINT: Chills, shortness of breath, cough, congestion. HISTORY OF PRESENT ILLNESS: This 81-year-old, white male with a very complicated past medical history, presents for evaluation of above-mentioned symptoms. Current history of present illness began at the end of March. At that time, patient was admitted to [facility] with a bronchiectasis exacerbation. He was treated with broad-spectrum antibiotics and was discharged home in early april on Augmentin therapy. Initially, the patient did reasonably well. Unfortunately, he required readmission on 05/20/2016 secondary to alteration of mental status and shortness of breath. Ultimately, it was felt the patient had sepsis with an elevated white blood cell count associated with a bronchiectasis exacerbation. The patient was discharged home on 05/26/2016. While hospitalized, patient was treated with broad-spectrum antibiotics, bronchodilators, and supplemental oxygen. He was noted to have an elevated CK and a minimally elevated troponin. Post discharge, patient had a very slow recovery. He required prolonged antibiotic coverage. Cardiology consultation evaluation was pursued. No intervention was felt warranted. The patient had done reasonably well until approximately 1 week ago. At that time, patient began feeling poorly. He describes fatigue and chills. Since that time, his overall condition has progressed. He complains of cough, congestion, and shortness of breath. He has intermittent wheezing. His cough is largely nonproductive. He denies specific contacts to his knowledge. Because of his progressive symptoms, patient presented to my office for further evaluation and management. Upon arrival, CBC was performed which revealed a white count of 11.2. In the setting of long-standing bronchiectasis and a declining condition, patient will be admitted to the hospital for full evaluation and management of an acute bronchiectasis exacerbation. PAST MEDICAL HISTORY: 1. Abnormal skin examination with multiple actinic keratoses and seborrheic keratoses. 2. History of acute cholecystitis status post laparoscopic cholecystectomy in 1984. 3. History of recurrent acute pancreatitis. 4. Folic acid deficiency. 5. Vitamin B12 deficiency. 6. Benign prostatic hypertrophy. 7. Bronchiectasis. 8. Right bundle branch block. 9. History of chest pain status post negative cardiac evaluation in 2012. 10. Depression/anxiety. 11. Type 2 diabetes. 12. Insomnia. 13. History of diverticulitis. 14. Reflux disease. 15. Hypertension. 16. Hypertriglyceridemia. 17. History of T12 compression fracture. 18. Right inguinal hernia status post surgical intervention in 2005. 19. Hyperlipidemia. 20. Irritable bowel syndrome. 21. Chronic low back pain status post L4-L5 microdiskectomy in February 2009. 22. Osteoarthritis. 23. Peripheral neuropathy. 24. Pulmonary nodule followed by Dr. Loera. 25. History of acute appendicitis. CURRENT MEDICATIONS: 1. Mildred 180 mg daily as needed. 2. CoQ10 100 mg daily. 3. Flexeril 10 mg 1/2 to 1 tablet 3 times daily as needed. 4. Duloxetine 60 mg daily. 5. Folic acid 1 mg daily. 6. DuoNeb 3 times daily. 7. Folic acid 40 mg at bedtime. 8. Lyrica 200 mg twice daily. 9. MiraLAX daily as needed. 10. Omeprazole 40 mg daily. 11. Pravastatin 40 mg at bedtime. 12. Senna S twice daily as needed. 13. Flomax 0.4 mg daily. 14. Vitamin B12 1000 mg daily. 15. MS Contin 60 mg twice daily. ALLERGIES: Patient answered no known drug allergies. SOCIAL HISTORY: The patient smoked as much as 2 packs per day starting at age 16. Unfortunately, he continues to smoke 4-5 cigarettes per day. He quit alcohol in 2003. He denies illicit drug use. 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 He enjoys watching sports. He does not exercise routinely. FAMILY HISTORY: Patient's father passed at age 86 secondary to complications of a stroke. Patient's mother passed at age 92 secondary to complications of leukemia. REVIEW OF SYSTEMS: A 12 point review of systems was performed. Pertinent positives and negatives noted in history present illness. PHYSICAL EXAMINATION: VITAL SIGNS: Temperature 98 degrees, heart rate 83, respirations 26, blood pressure is 135/75. GENERAL: Chronically ill-appearing, no acute distress. HEENT: Normocephalic atraumatic. Pupils equal, round, react to light. Extraocular muscles intact. Sclerae anicteric. [place] conjunctivae. Oral nasopharynx clear without exudate. NECK: Supple. No lymphadenopathy. No thyromegaly. No bruits auscultated. CARDIOVASCULAR: Regular rate and rhythm. No significant murmurs, rubs, or gallops. PULMONARY: Crackles and rhonchi at bilateral bases. ABDOMEN: Soft, nontender, nondistended. Positive bowel sounds. EXTREMITIES: Moves all extremities well. No significant clubbing, cyanosis, or edema. NEUROLOGIC: Cranial nerves 2 through 12 grossly intact. Motor and sensory grossly intact. PSYCHOLOGIC: Examination is appropriate. LABORATORY DATA: White blood cell count 11.2, hemoglobin 13.7, hematocrit 42.3, platelet count 411,000. ASSESSMENT AND PLAN: 81-year-old white male with a complicated past medical history, presents for evaluation of shortness of breath, chills, and profound fatigue. Patient's symptoms are consistent with a bronchiectasis exacerbation. He has experienced multiple exacerbations over the course of the last several months. The patient will be admitted to the hospital for full evaluation and management of this condition. 1. Admit to General Medicine. 2. Acute exacerbation of chronic bronchiectasis-we will check blood cultures and sputum cultures. We will start patient on broad-spectrum antibiotics in the form of Zosyn and levofloxacin therapy. We will start bronchodilators. At this point, we will hold off on MRSA coverage, however we will have a low threshold should his overall condition not improve quickly. We will encourage incentive spirometry and aspiration precautions. We will follow his clinical course closely. 3. Hypoxia-while home, patient was noted to have increasing hypoxia. We will start patient on oxygen per protocol. This will be followed. 4. Shortness of breath-this is secondary to above conditions. We will treat the patient aggressively as noted. 5. Diabetes-we will cover patient with sliding scale insulin. 6. Hypertension-we will continue patient on his home medications. 7. Peripheral neuropathy-patient has longstanding disease. Unfortunately, he requires narcotic intervention. We will continue his home regimen. 8. Fluid electrolytes nutrition. We will monitor electrolytes. Saline lock IV, diabetic diet, prophylaxis-patient will be placed on subcu Lovenox. cc: Angel Reyna MD
[2016-07-17 18:05] LABS: MANUAL DIFF NEEDED? NO
[2016-07-17 18:12] LABS: BASO% 0.3 % (0.0-0.8); EOS# 0.04 X1000 (0.0-0.7); EOS% 0.4 % (0.0-10.0); HEMATOCRIT 37.7 % (42.0-52.0); HEMOGLOBIN 12.5 g/dL (14.0-18.0); IMM GRAN# 0.03 X1000 (0.0-0.04); IMM GRAN% 0.3 % (0.0-0.5); LYMPH# 2.69 X1000 (1.2-3.4); LYMPH% 27.1 % (20.5-51.1); MCH 28.2 PG (27-31); MCHC 33.2 g/dL (33-37); MCV 84.9 FL (81-99); MONO# 0.64 X1000 (0.11-0.59); MONO% 6.5 % (1.7-9.3); MPV 9.7 FL (7.4-10.4); NEUT% 65.4 % (42.2-75.2); PLT 345 X1000 (130-400); RBC 4.44 XMIL (4.7-6.1)
[2016-07-17 18:36] LABS: AGAP 20; ALBUMIN 3.8 g/dL (3.5-5.0); ALKALINE PHOSPHATASE 77 U/L (32-122); BUN 17 mg/dL (8-22); CALCIUM 9.5 mg/dL (8.8-10.2); CHLORIDE 96 mmol/L (98-107); CK PROFILE 30 U/L (24-204); COSMO 271; GOT 18 U/L (10-34); GPT 6 U/L (10-44); SODIUM 134 mmol/L (136-145); TCO2 18 mmol/L (25-35); TOTAL BILIRUBIN 0.69 mg/dL (0.20-1.00)
[2016-07-17] MEDS: DUONEB (A & A) INH SCH ×2 (19:05→23:04)
[2016-07-17] MEDS: LEVAQUIN 500 MG/D5W 500 MG/100 ML IVPB IV SCH (19:38)
[2016-07-17] MEDS: LOVENOX SUBQ SCH (19:39)
[2016-07-17] MEDS: MS CONTIN PO SCH (20:46)
[2016-07-17] MEDS: LYRICA PO SCH (20:46)
[2016-07-17] MEDS: PRAVACHOL PO SCH (20:46)
[2016-07-17] MEDS: NS 1,000 ML IV SCH (23:52)
[2016-07-17] MEDS: HUMALOG SUBQ SCH (23:53)
[2016-07-17] MEDS: ZOSYN 3.375 GM/NS 3.375 GM/50 ML IVPB IV SCH (23:53)
[2016-07-18] MEDS: DUONEB (A & A) INH SCH ×6 (03:37→23:05)
[2016-07-18] MEDS: ZOSYN 3.375 GM/NS 3.375 GM/50 ML IVPB IV SCH ×5 (04:05→21:28)
[2016-07-18] MEDS: PRILOSEC PO SCH ×2 (05:58→06:38)
[2016-07-18 06:08] LABS: URINE CULTURE NEEDED? NO; URINE MICRO REVIEW NEEDED? NO; URINE SOURCE CLEAN CATCH
[2016-07-18 06:17] LABS: BILIRUBIN URINE NEGATIVE (NEGATIVE); BLOOD URINE NEGATIVE (NEGATIVE); COLOR YELLOW; GLUCOSE URINE NEGATIVE (NEGATIVE); LEUKOCYTES URINE NEGATIVE (NEGATIVE); NITRITE URINE NEGATIVE (NEGATIVE); PROTEIN URINE NEGATIVE (NEGATIVE); SP GRAVITY URINE 1.014; TURBIDITY URINE CLEAR (CLEAR); UROBILINOGEN URINE NORMAL (NORMAL)
[2016-07-18 06:18] LABS: UR EPITHELIAL CELLS <10 /HPF (<10); URINE BACTERIA NEGATIVE /HPF; URINE RBC <10 /HPF (<10); URINE WBC <10 /HPF (<10)
[2016-07-18 06:37] LABS: MANUAL DIFF NEEDED? NO
[2016-07-18] MEDS: HUMALOG SUBQ SCH ×4 (06:38→21:08)
[2016-07-18 06:47] LABS: BASO% 0.1 % (0.0-0.8); EOS# 0.07 X1000 (0.0-0.7); EOS% 0.8 % (0.0-10.0); HEMATOCRIT 34.7 % (42.0-52.0); HEMOGLOBIN 11.6 g/dL (14.0-18.0); LYMPH# 2.78 X1000 (1.2-3.4); LYMPH% 30.2 % (20.5-51.1); MCHC 33.4 g/dL (33-37); MCV 83.8 FL (81-99); MONO% 10.8 % (1.7-9.3); MPV 9.4 FL (7.4-10.4); NEUT% 58.1 % (42.2-75.2); PLT 376 X1000 (130-400); RBC 4.14 XMIL (4.7-6.1)
[2016-07-18 07:09] LABS: AGAP 14; ALBUMIN 3.2 g/dL (3.5-5.0); ALKALINE PHOSPHATASE 61 U/L (32-122); BUN 16 mg/dL (8-22); CALCIUM 8.1 mg/dL (8.8-10.2); CHLORIDE 101 mmol/L (98-107); COSMO 273; GOT 13 U/L (10-34); GPT 5 U/L (10-44); POTASSIUM 3.7 mmol/L (3.5-5.1); SODIUM 136 mmol/L (136-145); TCO2 21 mmol/L (25-35); TOTAL BILIRUBIN 0.51 mg/dL (0.20-1.00); TOTAL PROTEIN 5.7 g/dL (6.3-8.3)
--- NOTE | 2016-07-18 09:35 | PROGRESS NOTE ---
DATE: 07/18/2016 SUBJECTIVE: The patient states that he is breathing a little bit better. He is irritated because it is 9:00 and they have not served him breakfast yet. OBJECTIVE: Vital Signs: Temperature is 97.6, pulse 76, respirations 18, blood pressure 124/63, 96% saturated on nasal cannula. PHYSICAL EXAMINATION: General: He is a thin, white male, in no acute distress. He is alert, oriented, conversive, and appropriate. Neck: No JVD. Lungs: Patient has some bilateral end- expiratory wheezes particularly in the lower lobes. There is some coarse breath sounds and crackling in the left lung anteriorly but, overall, his air movement is good, and he is in no distress. Cardiovascular: Regular at 76. Extremities: No edema. Psychological: Normal mood. ASSESSMENT AND PLAN: 1. The patient is on Zosyn and breathing treatments and has cultures pending for his bronchiectasis. Subjectively, the patient feels that he is improved. 2. The patient's hypoxia is well covered with nasal cannula. 3. Diabetes is stable. I do not see where he has received frequent fingersticks. There was only one listed on the computer. The glucose readings from his laboratories have been well within an acceptable range. 4. Hypertension is stable. PLAN: Overall plan is to keep the patient in the hospital until culture results are finalized and respiratory stability is ensured. I believe the patient had a follow-up x-ray but I do not have results on that yet. cc: MD Angel Heart MD
[2016-07-18] MEDS: VITAMIN B-12 PO SCH (10:13)
[2016-07-18] MEDS: PRINIVIL PO SCH (10:13)
[2016-07-18] MEDS: FLOMAX PO SCH (10:13)
[2016-07-18] MEDS: COENZYME Q10 PO SCH (10:13)
[2016-07-18] MEDS: CYMBALTA PO SCH (10:14)
[2016-07-18] MEDS: FOLIC ACID PO SCH (10:14)
--- NOTE | 2016-07-18 10:22 | Diag Imaging Result Document ---
PROCEDURE NAME: CHEST-2 VIEWS - 07/18/2016 FRONTAL AND LATERAL CHEST TWO VIEWS: COMPARISON: 05/25/2016. FINDINGS: The lungs are well expanded. The heart is not enlarged. The vessels are not distended. Recurrent small infiltrate versus fibrosis in the right base. No pleural effusions. The right hemidiaphragm is elevated. IMPRESSION: Fibrosis versus a recurrent small infiltrate in the right base.
[2016-07-18] MEDS: MS CONTIN PO SCH ×2 (10:30→21:27)
[2016-07-18] MEDS: LYRICA PO SCH ×2 (10:30→21:28)
[2016-07-18] MEDS: MIRALAX PO SCH (15:11)
[2016-07-18] MEDS: LOVENOX SUBQ SCH (17:12)
[2016-07-18] MEDS: LEVAQUIN 500 MG/D5W 500 MG/100 ML IVPB IV SCH (19:42)
[2016-07-18] MEDS: NS 1,000 ML IV SCH (19:42)
[2016-07-18] MEDS: PRAVACHOL PO SCH (21:28)
[2016-07-19] MEDS: DUONEB (A & A) INH SCH ×6 (03:24→23:24)
[2016-07-19] MEDS: ZOSYN 3.375 GM/NS 3.375 GM/50 ML IVPB IV SCH ×5 (04:38→21:48)
[2016-07-19] MEDS: NS 1,000 ML IV SCH ×2 (06:24→18:09)
[2016-07-19] MEDS: PRILOSEC PO SCH (06:24)
[2016-07-19] MEDS: COENZYME Q10 PO SCH (08:35)
[2016-07-19] MEDS: PRINIVIL PO SCH (08:36)
[2016-07-19] MEDS: CYMBALTA PO SCH (08:36)
[2016-07-19] MEDS: FLOMAX PO SCH (08:36)
[2016-07-19] MEDS: MS CONTIN PO SCH ×2 (08:36→21:48)
[2016-07-19] MEDS: FOLIC ACID PO SCH (08:36)
[2016-07-19] MEDS: MIRALAX PO SCH (08:37)
[2016-07-19] MEDS: VITAMIN B-12 PO SCH (08:37)
[2016-07-19] MEDS: LYRICA PO SCH ×2 (08:37→21:48)
[2016-07-19] MEDS: HUMALOG SUBQ SCH ×4 (08:38→22:55)
--- NOTE | 2016-07-19 09:25 | PROGRESS NOTE ---
DATE: 07/19/2016 SUBJECTIVE: The patient has no real complaints. He is very talkative and animated this morning. He denies any shortness of breath. He states that he is coughing up a little bit of material but not much. It seems that his cough has dissipated some since admission. OBJECTIVE:: Vital Signs: 98.1, 77, 20, 130/69. Fluid balance positive 402. Physical Examination: General: Patient is alert, oriented, conversive, and appropriate. Neck Examination: No JVD. Lungs: Clear in the upper lobes but in the posterior and inferior elements on both signs, there is some expiratory wheezing and a little bit of crackles. His cough still sounds a bit rattly. Extremities: No peripheral edema. Laboratory: None was drawn today. Bedside glucoses are in an acceptable range. Microbiology shows no blood culture growth after 48 hours. ASSESSMENT AND PLAN: 1. The patient's bronchiectasis is stable and improving, although he still has some signs of respiratory compromise on the basis of his examination. He will continue on Zosyn and Levaquin. Blood cultures are negative. He is improving and likely can be discharged tomorrow which he will make a conversion over to an oral antibiotic. He may be a candidate for chronic suppressive therapy either on a daily basis or 1 week per month, as is often the case with bronchiectasis patients. 2. Hypoxia, resolved. 3. Diabetes, stable. 4. Hypertension, stable. cc: MD Angel Heart MD
[2016-07-19] MEDS: LOVENOX SUBQ SCH (17:57)
[2016-07-19] MEDS: LEVAQUIN 500 MG/D5W 500 MG/100 ML IVPB IV SCH (18:42)
[2016-07-19] MEDS: PRAVACHOL PO SCH (21:48)
[2016-07-20] MEDS: DUONEB (A & A) INH SCH ×3 (03:34→11:00)
[2016-07-20] MEDS: ZOSYN 3.375 GM/NS 3.375 GM/50 ML IVPB IV SCH ×2 (03:44→11:13)
[2016-07-20] MEDS: PRILOSEC PO SCH (06:04)
--- NOTE | 2016-07-20 07:13 | EKG Report ---
Test Performed on : 07/17/2016 4:31:31 PM Test Reason : shortness of breath Blood Pressure : / mmHG Vent. Rate : 078 BPM Atrial Rate : 078 BPM P-R Int : 154 ms QRS Dur : 136 ms QT Int : 456 ms P-R-T Axes : 081 -58 027 degrees QTc Int : 519 ms Sinus rhythm. with premature supraventricular complexes. Right bundle branch block Left anterior fascicular block Bifascicular block Abnormal ECG When compared with ECG of 17-JUL-2016 16:30, (Unconfirmed) premature supraventricular complexes. are now present Confirmed by Tez HASTINGS, Clayton Jose ([id number]) on 07/20/2016 8:50:17 AM
[2016-07-20] MEDS: HUMALOG SUBQ SCH ×2 (07:32→11:18)
[2016-07-20 07:59] VITALS: BP 145/54
[2016-07-20] MEDS: MS CONTIN PO SCH (08:42)
[2016-07-20] MEDS: MIRALAX PO SCH (08:42)
[2016-07-20] MEDS: PRINIVIL PO SCH (08:43)
[2016-07-20] MEDS: COENZYME Q10 PO SCH (08:43)
[2016-07-20] MEDS: CYMBALTA PO SCH (08:43)
[2016-07-20] MEDS: FOLIC ACID PO SCH (08:43)
[2016-07-20] MEDS: FLOMAX PO SCH (08:43)
[2016-07-20] MEDS: VITAMIN B-12 PO SCH (08:43)
[2016-07-20] MEDS: LYRICA PO SCH (08:44)
[2016-07-20] MEDS: NS 1,000 ML IV SCH (11:15)
--- NOTE | 2016-07-21 12:48 | DISCHARGE SUMMARY ---
ADMISSION DATE: 07/17/2016 DISCHARGE DATE: 07/20/2016 ADMISSION DIAGNOSES: 1. Chills. 2. Shortness of breath. 3. Cough. 4. Congestion. DISCHARGE DIAGNOSES: 1. Acute exacerbation of chronic bronchiectasis. 2. Hypoxia, improving. 3. Shortness of breath, improving. 4. Diabetes, present on arrival. 5. Hypertension, present on arrival. 6. Peripheral neuropathy, present on arrival. CONSULTATIONS: None. PROCEDURES: A chest x-ray performed on 07/18/2016 which revealed fibrosis versus a recurrent small infiltrate in the right base. HISTORY AND PHYSICAL EXAMINATION: See admit note. PHYSICAL EXAMINATION PRIOR TO DISCHARGE: Vital Signs: Temperature 97.6 degrees, heart rate 76, respirations 17, blood pressure is 145/54. General: Well nourished and well developed. No acute distress. Cardiovascular: Regular rate and rhythm. No significant murmurs, rubs, or gallops. Pulmonary: Crackles at bilateral bases. Adequate air movement. Abdomen: Soft, nontender, nondistended. Positive bowel sounds. Extremities: Moves all extremities well. No significant clubbing, cyanosis, or edema. Dermatologic: Evaluation reveals no evidence of rash. LABORATORY DATA: Prior to discharge: None. HOSPITAL COURSE: The patient was admitted as per history and physical examination. Hospital course per condition is as follows. 1. Acute exacerbation of chronic bronchiectasis - upon admission, patient was noted to have a cough, congestion, shortness of breath, and weakness consistent with his previous episodes of acute exacerbation of chronic bronchiectasis. The patient was admitted to the hospital and placed on broad-spectrum antibiotics in the form of Zosyn and levofloxacin therapy. Bronchodilators were initiated. Patient tolerated this very well. The patient was maintained on IV antibiotics throughout hospitalization. At time of discharge, patient was prepared to be discharged home. The patient will be discharged on Augmentin 875/125 twice daily for the next 14 days. He will continue bronchodilators 3-4 times daily. I have asked patient to use Mucinex twice daily. We will continue to follow along with Dr. Loera. 2. Hypoxia- while at home, patient was noting increasing hypoxia. With aggressive treatment, his oxygenation has recovered. He currently requires no oxygen therapy and has maintained adequate saturations. 3. Shortness of breath - as above, patient has achieved improvement with antibiotic coverage. We will follow this as an outpatient. 4. Diabetes - patient was covered with sliding scale insulin while hospitalized. At time of discharge, blood sugars were acceptable. 5. Hypertension - patient was continued on his home medications while hospitalized. We will continue these at discharge. 6. Peripheral neuropathy- patient has longstanding disease. He currently is being treated with Lyrica and MS Contin as prescribed by his pain specialist. We will defer management. 7. Tobacco use - unfortunately, patient continues to use tobacco products. We have discussed in detail the importance of discontinuing therapy. He understands associated risk. DISCHARGE CONDITION: Good. DISPOSITION: Discharge to home. MEDICATIONS: 1. Acetaminophen 650 mg every 4 hours as needed. 2. Vitamin B12 daily. 3. Flexeril 10 mg 3 times daily as needed. 4. Cymbalta 60 mg daily. 5. Fexofenadine 180 mg daily as needed. 6. Folic acid 1 mg daily. 7. Guaifenesin 600 mg ER 1 tab q.12 hours. 8. Lisinopril 40 mg daily. 9. Omeprazole 40 mg daily. 10. MiraLAX 17 g in 8 ounces of juice daily. 11. Pravastatin 40 mg at bedtime. 12. Gabapentin 200 mg twice daily. 13. Tamsulosin 0.4 mg daily. 14. Co enzyme Q10 100 mg daily. 15. Albuterol and Atrovent nebs q.4 hours as needed. 16. Augmentin 875/125, 1 tablet twice daily for 2 weeks. 17. MS Contin 60 mg every 12 hours. FOLLOWUP: The patient is follow up with me in approximately 1-2 weeks. cc: Angel Reyna MD
== END 2016-07-20 14:44 | disposition home or self-care (01) ==
LOC: DIRADM 15:46 → 4N 16:20
PROVIDERS: ADMIT Internal Medicine; ATTEND Internal Medicine

== ENCOUNTER 2016-10-03 11:29 | Inpatient (IN) ==
[2016-10-03] MEDS ORDERED: ASPIRIN PO STA (11:57)
[2016-10-03] MEDS ORDERED: ZOFRAN IV ONE (12:04)
[2016-10-03] MEDS ORDERED: XOPENEX NEB INH ONE ×2 (12:04→13:33)
[2016-10-03] MEDS ORDERED: NS NEB INH SCH ×2 (12:15→13:45)
--- NOTE | 2016-10-03 12:21 | Diag Imaging Result Doc PS360 ---
EXAM: CHEST-PORTABLE HISTORY: CP TECHNIQUE: Portable upright AP COMPARISON: 07/18/2016 FINDINGS: The lungs are well expanded. The heart is not enlarged. The vessels are not distended. No pneumonia. No pleural effusions identified. IMPRESSION: Negative chest. Electronically signed by Dimitris Velasquez 10/03/2016 12:19 PM
[2016-10-03 12:25] LABS: MANUAL DIFF NEEDED? NO
[2016-10-03 12:28] LABS: BASO% 0.2 % (0.0-0.8); EOS# 0.06 X1000 (0.0-0.7); EOS% 0.5 % (0.0-10.0); HEMATOCRIT 41.5 % (42.0-52.0); HEMOGLOBIN 14.3 g/dL (14.0-18.0); IMM GRAN# 0.02 X1000 (0.0-0.04); IMM GRAN% 0.2 % (0.0-0.5); LYMPH# 1.94 X1000 (1.2-3.4); LYMPH% 16.7 % (20.5-51.1); MCH 28.9 PG (27-31); MCHC 34.5 g/dL (33-37); MCV 83.8 FL (81-99); MONO# 1.04 X1000 (0.11-0.59); MPV 9.6 FL (7.4-10.4); NEUT% 73.4 % (42.2-75.2); PLT 422 X1000 (130-400); RBC 4.95 XMIL (4.7-6.1)
[2016-10-03 12:39] LABS: INR 0.97; PROTIME 10.2 Seconds (9.2-11.7); PTT 29.2 Seconds (22.0-36.0)
[2016-10-03 12:47] LABS: AGAP 13; ALBUMIN 4.1 g/dL (3.5-5.0); ALKALINE PHOSPHATASE 76 U/L (32-122); BUN 28 mg/dL (8-22); CALCIUM 9.1 mg/dL (8.8-10.2); CHLORIDE 97 mmol/L (98-107); CK PROFILE 44 U/L (24-204); COSMO 274; GOT 19 U/L (10-34); GPT 10 U/L (10-44); LIPASE 30 U/L (13-60); MAGNESIUM 2.1 mg/dL (1.5-2.7); POTASSIUM 4.4 mmol/L (3.5-5.1); SODIUM 134 mmol/L (136-145); TCO2 24 mmol/L (25-35); TOTAL BILIRUBIN 0.62 mg/dL (0.20-1.00); TOTAL PROTEIN 6.8 g/dL (6.3-8.3)
--- NOTE | 2016-10-03 14:46 | Diag Imaging Result Doc PS360 ---
EXAM: ANGIOGRAM/PULMONARY ARTERIES HISTORY: sob cp elevated ddimer TECHNIQUE: Dose reduction protocol COMPARISON: 04/27/2016 FINDINGS: No pleural effusions. No thoracic aortic aneurysm or dissection. Normal opacification of the pulmonary arteries and their major branches. There are small mediastinal lymph nodes. A small amount of scarring is found in the apices. Possible small developing nodule posteriorly in the right upper lobe on image 65. Minimal increased markings in the lower lungs. No consolidation. No bronchiectasis. Mild bronchial wall thickening. IMPRESSION: 1.No pulmonary emboli 2.Mild bronchial wall thickening 3.Tiny developing nodular density in the right upper lobe on image 65. Electronically signed by Dimitris Velasquez 10/03/2016 2:44 PM
--- NOTE | 2016-10-03 15:09 | PROVIDER DOCUMENTATION ---
This chart was entered by Glenys Conn Scribe, acting as scribe for Xavier Block MD. HPI-Cardiac General - General Chief Complaint: Chest Pain Stated Complaint: CHEST PAIN, ABD PAIN Time Seen by Provider: 10/03/16 11:57 Source: patient Allergies/Adverse Reactions: Patient Allergies Allergy/AdvReac Type Severity Reaction Status Date / Time No Known Allergies Allergy Verified 10/03/16 12:02 Home Medications: Home Medication List Medication Instructions Recorded Confirmed Last Taken Type Polyethylene Glycol 3350 [Miralax] 17 gm PO DAILY 04/20/12 10/03/16 10/02/16 History Tamsulosin [Flomax] 0.4 mg PO DAILY 04/20/12 10/03/16 10/02/16 History LISINOpril [Prinivil] 40 mg PO DAILY #0 tablet 04/21/12 10/03/16 10/02/16 Rx Duloxetine [Cymbalta] 60 mg PO QAM #0 capsule 01/12/15 10/03/16 10/02/16 Rx Omeprazole [Prilosec] 40 mg PO DAILY@0700 #0 capsule 01/12/15 10/03/16 10/02/16 Rx PRAVAstatin [Pravachol] 40 mg PO QHS #0 tablet 01/12/15 10/03/16 10/02/16 Rx Pregabalin [Lyrica] 200 mg PO BID #0 capsule 01/12/15 10/03/16 10/03/16 Rx Folic Acid 1 mg PO DAILY #1 tablet 04/28/16 10/03/16 10/02/16 Rx Ubidecarenone [Coenzyme Q10] 100 mg PO DAILY #1 capsule 04/28/16 10/03/16 Rx Fexofenadine [Mildred] 180 mg PO DAILY PRN PRN #0 tablet 05/26/16 10/03/1609/12 07:30 Rx Guaifenesin [Mucinex] 600 mg PO BID #1 tab.er.12h 07/20/16 10/03/16 10/02/16 Rx Morphine E.r. [Ms Contin] 60 mg PO Q12HR tablet 07/20/16 10/03/16 10/03/16 Rx Famotidine [Pepcid] 20 mg PO DAILY #20 tablet 09/13/16 10/03/16 10/02/16 Rx Promethazine [Phenergan] 25 mg PO Q6H PRN PRN 10/03/16 10/03/16 10/03/16 History - History of Present Illness-Cardiac Nature of Presenting Problem: PT IS A 81YOM PRESENTING TO THE ED C/O COUGH W/CP. PT HAS A HISTORY OF BRONCHIECTOSIS WITH 3 DAY HISTORY OF INCREASED COUGH WITH WHITE INTERMITTENT SPUTUM. PT C/O OF INTERMITTENT CP BUT NO DIAPHORESIS, N/V/D OR OTHER COMPLAINTS AT THIS TIME Location: reports: central Quality of Pain: reports: pressure Severity in ED: mild Onset/Duration: gradual Timing: still present, intermittent Context/Activities at Onset: reports: light activity Modifying Factors: improves with: coughing Palpitation Quality: N/A History of arrythmia: reports: none Recent use of:: reports: no stimulants Nitro Today/Relief: reports: no nitro taken today Aspirin Treatment Today: reports: 325 mg x 1, provided by ED Prior Chest Pain/Cardiac Workup: reports: no prior chest pain Associated Symptoms: reports: shortness of breath, weakness. denies: abdominal pain, back pain Similar Symptoms Previously?: Yes Recently Seen Here or By Another Healthcare Provider: No Review of Systems - Adult - REVIEW OF SYSTEMS - ADULT Constitutional: reports: no symptoms reported Eyes: reports: no symptoms reported Ears, Nose, Mouth & Throat: reports: no symptoms reported Cardiovascular: reports: see HPI, chest pain. denies: edema, irregular heart rate, syncope Respiratory: reports: see HPI, chronic cough, dyspnea on exertion, excessive sputum production, shortness of breath Gastrointestinal: reports: no symptoms reported Genitourinary: reports: no symptoms reported Musculoskeletal: reports: no symptoms reported Integumentary: reports: no symptoms reported Neurological: reports: no symptoms reported Psychiatric: reports: no symptoms reported Endocrine: reports: no symptoms reported Hematologic/Lymphatic: reports: no symptoms reported Allergic/Immunologic: reports: no symptoms reported All Other Systems: Reviewed and Negative Past History - Adult - PAST MEDICAL HISTORY-ADULT Review of Records: reports: Old Records Reviewed, Nursing Assessment Review, Medications Reviewed, Social history reviewed & non-contributory. Major Childhood Illnesses: reports: denies history Cardiovascular: reports: HTN, hyperlipidemia. denies: cardiac disease Respiratory: reports: COPD Gastrointestinal: reports: pancreatitis Obstetrical/Gynecological: reports: denies history Genitourinary: reports: prostatitis, prostate cancer Musculoskeletal: reports: chronic pain Neurological: reports: denies history Endocrine/Immune: reports: denies history Other Conditions: reports: denies history - PRIOR SURGERIES/PROCEDURES Surgical/Procedure History: reports: reviewed, not pertinent - PRIOR HOSPITALIZATIONS Prior Hospitalizations: reports: for other non-related - IMMUNIZATION STATUS Childhood Immunizations: UTD Flu Vaccine: NUTD - FAMILY HISTORY Family History: reviewed, not pertinent - SOCIAL HISTORY Smoking: cigarettes, greater than 1 pack/day Provider spent 3-5 mins advising pt. on dangers of tobacco.: Discussed manners to quit use, and f/u contacts for add'l counseling. Substance Use: denies Living Situation: alone Physical Exam-General - PHYSICAL EXAM-ADULT Initial Vital Signs Reviewed: Yes - CONSTITUTIONAL General Appearance: alert, moderate distress. negative: appears well - EYES Eyes: PERRL/EOMI, pink conjunctivae - HEAD, EARS, NOSE, MOUTH & THROAT HENMT: normocephalic/atraumatic, moist mucous membranes, normal ENT inspection, TMs normal, pharynx normal - NECK Neck: non-tender, full range of motion, supple, normal inspection - RESPIRATORY Respiratory: chest non-tender, lungs clear, normal breath sounds, no respiratory distress, no accessory muscle use, pain on inspiration. negative: no pleuratic chest pain - CARDIOVASCULAR Cardiovascular: normal peripheral pulses, regular rate, rhythm, no edema, no gallop, no JVD, no murmur - GASTROINTESTINAL (ABDOMEN) Abdominal Exam: normal bowel sounds, non tender, soft, no organomegaly, no pulsatile mass - LYMPHATIC Lymphatic: no adenopathy - MUSCULOSKELETAL Back Exam: normal inspection, no CVA tenderness, no vertebral tenderness Extremity: no pedal edema, no calf tenderness, normal capillary refill, pelvis stable. 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-XII nml as tested, grossly normal, no motor/sensory deficits - PSYCHIATRIC Psych/Mental Status: normal mood/affect, normal thought content, normal thought process, oriented x 3 Progress - PLAN OF CARE/RESULTS Progress/Plan/Lab Results: Vital Signs - 8 hr 10/03/16 11:43 10/03/16 13:13 10/03/16 13:55 Temperature 97.6 F Pulse Rate 87 84 83 Respiratory Rate 20 22 14 Blood Pressure 126/84 O2 Sat by Pulse Oximetry 98 95 Laboratory Results - last 24 hr 10/03/16 10/03/16 10/03/16 12:11 12:11 12:11 WBC 11.61 H RBC 4.95 Hgb 14.3 Hct 41.5 L MCV 83.8 MCH 28.9 MCHC 34.5 RDW Std Deviation 13.9 Plt Count 422 H MPV 9.6 Immature Gran % (Auto) 0.2 Neut % (Auto) 73.4 Lymph % (Auto) 16.7 L Harney % (Auto) 9.0 Eos % (Auto) 0.5 Baso % (Auto) 0.2 Immature Gran # (Auto) 0.02 Neut # (Auto) 8.53 H Lymph # (Auto) 1.94 Harney # (Auto) 1.04 H Eos # (Auto) 0.06 Baso # (Auto) 0.02 PT INR PTT (Actin FS) D-Dimer 1.22 H Sodium 134 L Potassium 4.4 Chloride 97 L Carbon Dioxide 24 L Anion Gap 13 BUN 28 H Creatinine 0.9 Estimated GFR/1.73 m2 > 60 BUN/Creatinine Ratio 31 Glucose 104 Calculated Osmolality 274 Calcium 9.1 Magnesium 2.1 Total Bilirubin 0.62 AST 19 ALT 10 Alkaline Phosphatase 76 Creatine Kinase 44 Troponin T Tnd-N-Lecetvwqdqn Pept Total Protein 6.8 Albumin 4.1 Globulin 2.7 Albumin/Globulin Ratio 1.5 Lipase 30 10/03/16 10/03/16 10/03/16 12:11 12:11 12:11 WBC RBC Hgb Hct MCV MCH MCHC RDW Std Deviation Plt Count MPV Immature Gran % (Auto) Neut % (Auto) Lymph % (Auto) Harney % (Auto) Eos % (Auto) Baso % (Auto) Immature Gran # (Auto) Neut # (Auto) Lymph # (Auto) Harney # (Auto) Eos # (Auto) Baso # (Auto) PT 10.2 INR 0.97 PTT (Actin FS) 29.2 D-Dimer Sodium Potassium Chloride Carbon Dioxide Anion Gap BUN Creatinine Estimated GFR/1.73 m2 BUN/Creatinine Ratio Glucose Calculated Osmolality Calcium Magnesium Total Bilirubin AST ALT Alkaline Phosphatase Creatine Kinase Troponin T < 0.010 Byp-V-Wtrelqttlco Pept 216 Total Protein Albumin Globulin Albumin/Globulin Ratio Lipase 10/03/16 10/03/16 14:12 14:12 WBC RBC Hgb Hct MCV MCH MCHC RDW Std Deviation Plt Count MPV Immature Gran % (Auto) Neut % (Auto) Lymph % (Auto) Harney % (Auto) Eos % (Auto) Baso % (Auto) Immature Gran # (Auto) Neut # (Auto) Lymph # (Auto) Harney # (Auto) Eos # (Auto) Baso # (Auto) PT INR PTT (Actin FS) D-Dimer Sodium Potassium Chloride Carbon Dioxide Anion Gap BUN Creatinine Estimated GFR/1.73 m2 BUN/Creatinine Ratio Glucose Calculated Osmolality Calcium Magnesium Total Bilirubin AST ALT Alkaline Phosphatase Creatine Kinase 51 Troponin T < 0.010 Ann-U-Khhqfmyyaag Pept Total Protein Albumin Globulin Albumin/Globulin Ratio Lipase Orders Category Date Time Status Cardiac Monitoring DIRECTED Care 10/03/16 11:57 Active Saline Loc NOW Care 10/03/16 11:57 Active ANGIOGRAM/PULMONARY ARTERIES [CT] Stat Exams 10/03/16 13:33 Completed CHEST-PORTABLE [RAD] Stat Exams 10/03/16 11:57 Completed CBC WITH ELECTRONIC DIFF [HEME] Stat Lab 10/03/16 12:11 Completed CK PROFILE [SP CHEM] Stat Lab 10/03/16 12:11 Completed CK PROFILE [SP CHEM] Stat Lab 10/03/16 14:12 Completed COMPREHENSIVE METABOLIC PANEL [CHEM] Stat Lab 10/03/16 12:11 Completed D-DIMER [CHEM] Stat Lab 10/03/16 12:11 Completed LIPASE [CHEM] Stat Lab 10/03/16 12:11 Completed MAGNESIUM [CHEM] Stat Lab 10/03/16 12:11 Completed PRO B-NATRIURETIC PEPTIDE Stat Lab 10/03/16 12:11 Completed PROTIME WITH INR [COAG] Stat Lab 10/03/16 12:11 Completed PTT [COAG] Stat Lab 10/03/16 12:11 Completed TROPONIN T Stat Lab 10/03/16 12:11 Completed TROPONIN T Stat Lab 10/03/16 14:12 Completed UA NIMS W/REFLEX CULT [URINALYSIS] Stat Lab 10/03/16 14:56 Ordered Aspirin Med 10/03/16 11:57 Discontinued 325 mg PO STAT STA Levalbuterol Neb [Xopenex Neb] Med 10/03/16 12:04 Discontinued 1.25 mg INH NOW ONE Levalbuterol Neb [Xopenex Neb] Med 10/03/16 13:33 Discontinued 1.25 mg INH NOW ONE Ondansetron [Zofran] Med 10/03/16 12:04 Discontinued 4 mg IV NOW ONE Sodium Chloride 0.9% Neb [Ns Neb] Med 10/03/16 12:15 Active 5 ml INH DIRECTED Sodium Chloride 0.9% Neb [Ns Neb] Med 10/03/16 13:45 Active 5 ml INH DIRECTED Aerosol Treatments Routine Oth 10/03/16 12:05 Completed Aerosol Treatments Routine Oth 10/03/16 13:34 Completed Aerosol Treatments Stat Oth 10/03/16 12:05 Completed Aerosol Treatments Stat Oth 10/03/16 13:34 Completed EKG [EKG] Stat Ther 10/03/16 11:57 Ordered EKG [EKG] Stat Ther 10/03/16 13:33 Ordered case dw with dr mathew who will come in to [facility]. care handed off to dr mathew. Result Diagrams: 10/03/16 12:11 10/03/16 12:11 - REASSESSMENT Reassessment #1 Time Reassessed: 14:59 (pt states he still feels somewhat nauseated and sob will admit for further management of bronchietasis and cp dr mathew paged on behalf of dr reyna) Status: unchanged - XRAY 1 XRAY: Bilateral XRAY Study: Chest (NAD - HURST) - CT/MRI 1 MRI Study: other (lung- no PE however developing nodule per radiology) Departure - Departure Date of Disposition Decision: 10/03/16 Time of Disposition Decision: 15:01 DIAGNOSIS: Bronchiectasis, Chest pain Disposition: ADMITTED INPATIENT 09 Certified Medical Emergency: Emergent Condition: Fair Referrals and Follow-Ups: Angel Reyna MD [Primary Care Provider] - - Critical Care Note This patient required my direct & personal management of CC.: No This chart was documented by the indicated scribe, (Glenys Conn Scribe) and accurately reflects the services I performed and decisions made by me, Xavier Block MD, as attested by the provider's signature.
[2016-10-03 15:10] LABS: URINE CULTURE NEEDED? NO; URINE MICRO REVIEW NEEDED? NO; URINE SOURCE CLEAN CATCH
[2016-10-03 15:13] LABS: BILIRUBIN URINE NEGATIVE (NEGATIVE); BLOOD URINE NEGATIVE (NEGATIVE); COLOR YELLOW; GLUCOSE URINE NEGATIVE (NEGATIVE); LEUKOCYTES URINE NEGATIVE (NEGATIVE); NITRITE URINE NEGATIVE (NEGATIVE); PROTEIN URINE TRACE mg/dL (NEGATIVE); SP GRAVITY URINE 1.029; TURBIDITY URINE CLEAR (CLEAR); UR EPITHELIAL CELLS <10 /HPF (<10); URINE BACTERIA NEGATIVE /HPF; URINE RBC <10 /HPF (<10); URINE WBC <10 /HPF (<10); UROBILINOGEN URINE NORMAL (NORMAL)
--- NOTE | 2016-10-03 15:23 | ED EKG INTERP ---
This chart was entered by Glenys Conn Scribe, acting as scribe for Cristal Ayers MD. EKG Interpretation - EKG Time of EKG reading by physician:: 14:10 EKG Read and Signed by:: Cristal Ayers EKG Interpretation (*Must complete 3 of following elements*): Abnormal Rate: 93 Rhythm: NSR W/SA QRS: RBB, other (LEFT ANTERIOR FASICULAR BLOCK, BIFASICULAR BLOCK) Prior EKG Comparison: unchanged from prior (06/2016) This chart was documented by the indicated scribe, (Glenys Conn Scribe) and accurately reflects the services I performed and decisions made by Armen krishnan Wenli X, MD, as attested by the provider's signature.
[2016-10-03] MEDS ORDERED: ALBUTEROL NEB INH PRN (16:27)
[2016-10-03] MEDS ORDERED: ALLEGRA PO PRN (16:42)
--- NOTE | 2016-10-03 17:58 | HISTORY AND PHYSICAL ---
CHIEF COMPLAINT: Increased cough, sputum production, chest tightness, nausea and vomiting. 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 Angel John for multiple medical problems, predominantly pulmonary. He has been hospitalized twice earlier this year with acute exacerbations of chronic bronchiectasis. Mr. Silvestre presented to the emergency room this afternoon with a 2-3 day history of increased cough and sputum production. His sputum was yellow and Wednesday and has been mostly white today but increased in quantity. He has had a tight feeling in his chest much of the time. Last night, he became very nauseated and vomited. He has only eaten a few bites of scrambled eggs and andres today but kept it down and denies nausea currently. He has been evaluated by the emergency room physician. He was mildly hypoxemic with a PO2 of 55 on room air on blood gas and had an elevated D-dimer, so a pulmonary arteriogram was done which showed no pulmonary artery filling defects but did demonstrate some bronchial thickening and a tiny nodule in the right upper lobe which sounds similar to what was previously noted in March. His is with him and states he was concerned because of the nausea and vomiting and a previous history of multiple episodes of acute pancreatitis. He had a severe episode of this approximately 20 years ago, was hospitalized in [facility] and apparently has been diabetic since then although he is on no medications for blood glucose, and his blood sugar today is normal. The ER physician was somewhat concerned about coronary disease. He does not describe any exertional component to his chest pain and has no previous history of ischemic heart disease. He does have a account development representative in [place], Dr. Marino Preston, and was scheduled for a GXT within the past year which had to be canceled because of coming in the hospital here with pneumonia. PAST MEDICAL HISTORY: Remarkable for recurrent acute pancreatitis, vitamin B12 and folate deficiencies, benign prostatic hypertrophy, bronchiectasis, right bundle branch block, depression, diabetes, insomnia, history of diverticulitis and gastroesophageal reflux disease, hypertension, hyperlipidemia, irritable bowel syndrome, and painful peripheral neuropathy. PAST SURGICAL HISTORY: Remarkable for appendectomy in , L4-L5 microdiskectomy in 2008, a right inguinal hernia repair in 2016, laparoscopic cholecystectomy in 1984. ALLERGIES: He has no known drug allergies. HOME MEDICATIONS: 1. Acetaminophen 650 mg q.4 hours p.r.n. for pain. 2. Vitamin B12 1000 mcg daily. 3. Cymbalta 60 mg every morning. 4. Fexofenadine 180 mg daily as needed. 5. Folic acid 1 mg daily. 6. Mucinex 600 mg 1 tablet q.12 hours. 7. Lisinopril 40 mg daily. 8. Omeprazole 40 mg every morning. 9. MiraLAX 17 g in juice daily. 10. Pravastatin 40 mg at bedtime. 11. Gabapentin 200 mg twice a day. 12. Tamsulosin 0.4 mg daily after supper. 13. Coenzyme Q10 100 mg daily. 14. DuoNeb usually 2-3 a day, rarely 4 treatments. 15. MS Contin 60 mg q.12 hours for painful neuropathy. FAMILY HISTORY: His father at age 86 of complications of a stroke. Mother age 92 with leukemia. SOCIAL HISTORY: He is and lives with his . 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 He has a quite significant smoking history up to 2 packs a day for many years but recently down to one-fourth of a pack of cigarettes per day. No recent alcohol use. REVIEW OF SYSTEMS: General: No headaches, fever, chills, night sweats. He has noted a 15-20 pound weight loss since early May, which our weight records document a 20 pound weight loss. HEENT exam: Vision and hearing are adequate without recent changes. He denies any difficulty chewing or swallowing. Respiratory: As above. No hemoptysis. No history of tuberculosis. Cardiovascular: No history of angina or ischemic heart disease. No history of congestive heart failure or valvular heart disease. No recent palpitations, orthopnea, PND, or pedal edema. GI: As above. He has mild chronic constipation treated with MiraLAX. No history of liver disease. : No dysuria. Occasional nocturia. No gross hematuria. Neurologic: Chronic bilateral burning pains in both feet and lower legs. He sees the pain clinic for his Neurontin and morphine prescriptions. No history of strokes or seizures. Psychiatric: He is on fluoxetine for chronic anxiety and depressed mood with good results, and his memory is normal and his agrees. Musculoskeletal: Some degree of low back pain, much improved since his spine surgery several years ago. PHYSICAL EXAMINATION: VITAL SIGNS: Temperature 97.6 degrees, blood pressure 126/84, pulse 83, respirations 14, weight is 145 (165 in May). GENERAL APPEARANCE: A slender, alert, elderly gentleman who is well groomed and comfortable and talkative. SKIN: Warm and dry. There are numerous seborrheic keratoses on the upper back along with a somewhat rough rash and a few excoriated spots over the right scapula. Skin turgor is good. HEENT: Pupils equal, round, reactive to light. Extraocular movements intact. Oropharynx is benign. NECK: Supple with no adenopathy, JVD, thyromegaly or bruits. CHEST EXAM: Air movement is good bilaterally. A few bronchial breath sounds are heard over the upper lobes anteriorly, but I do not really appreciate any wheezing and there is minimal if any prolongation of expiratory phase. Lung bases are clear. No crackles or wheezes. CARDIOVASCULAR: There is slightly distant S1, S2. No murmurs, rubs, or gallops. ABDOMEN: Soft, flat, nontender with active bowel sounds. No guarding or rebound tenderness. GENITAL/RECTAL: Deferred. EXTREMITIES: No cyanosis, clubbing, or edema. Dorsalis pedis pulses are 2 to 3+ and equal, posterior tibial pulses 1+ and equal bilaterally. NEUROLOGIC EXAM: Mental status including recent and remote memory is intact. His speech is clear and well articulated. Cranial nerves 2-12 were unremarkable. He moves all extremities on command. Gait is not tested. There is no tremor or cogwheeling present. DATABASE: White blood count 11,600, hemoglobin 14.3, hematocrit 41.5%, platelet count 422,000. ABG on room air 7.52, pCO2 31, PO2 55. Carboxyhemoglobin 2.6%. Sodium 134. CO2 24, glucose 104. BUN 28, creatinine 0.9. Liver function tests are unremarkable. Lipase is normal at 30. Magnesium 2.1. CPK and troponins are negative. Urinalysis is unremarkable. D-dimer was slightly elevated, 1.22. ASSESSMENT: 1. Acute exacerbation of chronic bronchiectasis. I feel this is the best explanation for his chest tightness and shortness of breath. He seems relatively low risk for ischemic heart disease. However will repeat troponin and EKG in the morning. 2. Twenty-pound weight loss is concerning in an elderly smoker even though his chest CT does not show anything really suspicious for malignancy. 3. History of diabetes controlled with diet alone. He says he has tolerated some intravenous steroids in the past without excessive blood sugars. 4. History of recurrent acute pancreatitis. 5. Recent nausea and vomiting of uncertain etiology. TREATMENT PLAN: Admitted for intravenous antibiotics, IV steroids around the clock, nebulizer treatments, and low-flow nasal O2. If there is any chest pain suggestive of ischemic heart disease, we will get Cardiology consult. I have started intravenous ceftazidime, the last admission he improved with Zosyn and Levaquin and was discharged on Augmentin. cc: Clayton Reagan MD
[2016-10-03] MEDS: PHENERGAN PO PRN ×2 (18:00→21:42)
[2016-10-03] MEDS: TAZIDIME 1 GM in NS 50 ML IV SCH (18:53)
[2016-10-03] MEDS ORDERED: SOLU-MEDROL IV SCH (20:00)
[2016-10-03] MEDS ORDERED: PRAVACHOL PO SCH (21:00)
[2016-10-03] MEDS ORDERED: ALBUTEROL NEB INH SCH (21:00)
[2016-10-03] MEDS ORDERED: LOVENOX SUBQ SCH (21:00)
[2016-10-03] MEDS: MS CONTIN PO SCH (21:43)
[2016-10-03] MEDS: LYRICA PO SCH (21:43)
[2016-10-03] MEDS: MUCINEX PO SCH (21:43)
[2016-10-04] MEDS: TAZIDIME 1 GM in NS 50 ML IV SCH (06:03)
[2016-10-04] MEDS ORDERED: PRILOSEC PO SCH (07:00)
[2016-10-04 07:23] VITALS: BP 111/79
[2016-10-04] MEDS ORDERED: PRINIVIL PO SCH (09:00)
[2016-10-04] MEDS ORDERED: CYMBALTA PO SCH (09:00)
[2016-10-04] MEDS ORDERED: COENZYME Q10 PO SCH (09:00)
[2016-10-04] MEDS ORDERED: MIRALAX PO SCH (09:00)
[2016-10-04] MEDS ORDERED: FOLIC ACID PO SCH (09:00)
[2016-10-04] MEDS ORDERED: FLOMAX PO SCH (09:00)
[2016-10-04] MEDS: MUCINEX PO SCH ×2 (09:23→09:27)
[2016-10-04] MEDS: LYRICA PO SCH (09:30)
[2016-10-04] MEDS: MS CONTIN PO SCH (09:30)
--- NOTE | 2016-10-04 23:23 | DISCHARGE SUMMARY ---
ADMISSION DATE: 10/03/2016 DISCHARGE DATE: 10/04/2016 FINAL DIAGNOSES: 1. Chest pain, probably due to #2. 2. Acute exacerbation of chronic bronchiectasis. 3. Weight loss 20-25 pounds over the past 3 months. 4. Type 2 diabetes controlled with diet alone. 5. History of recurrent acute pancreatitis. PRESENT ILLNESS: Mr. Silvestre is an 81-year-old gentleman who is followed by Dr. Angel John for multiple medical problems related to ongoing cigarette smoking. He presented to the emergency room with 2-day history of increased cough, sputum production and a 1-day history of chest tightness, nausea and vomiting. He was evaluated in the emergency room, noted to be mildly hypoxemic and had an elevated D-dimer. His CT angiogram of the chest showed no pulmonary emboli but did confirm some bronchial thickening and previously noted pulmonary nodules. The emergency room physician was concerned about myocardial ischemia although his EKG was unchanged from baseline with right bundle branch block and was somewhat challenging to interpret for ischemia. PHYSICAL EXAMINATION: Vital signs: There are fairly unremarkable blood pressures. General: He was a slender, alert elderly gentleman who is pleasant, talkative. HEENT: Unremarkable. Chest exam: Good air movement bilaterally with some bronchial breath sounds heard in the upper lobes but no active wheezing or crackles. Heart Sounds are slightly distant but no murmurs were appreciated. DATABASE: White blood count 11,600, hemoglobin 14.3. Electrolytes. Sodium 134, otherwise unremarkable. Lipase was normal. CPK and troponins were negative. HOSPITAL COURSE: He was admitted to the medical floor on telemetry monitoring. Subsequent troponins were negative. He was walked briskly in the halls without chest discomfort and his chest tightness this morning has resolved on intravenous antibiotics, steroids and around the clock albuterol. He feels well and insists on going home. I have impressed upon him the importance of returning to see Dr. John very soon to investigate his 20 pound weight loss. His blood sugars remained quite acceptable despite intravenous Solu-Medrol. I feel he will not require steroids at home but will benefit from antibiotics. DISCHARGE MEDICATIONS: Bactrim DS tablets 1 twice a day for 10 days. He is to continue previous home medications as follows. MiraLAX 17 g daily, Flomax 0.4 mg daily, lisinopril 40 mg daily, duloxetine 60 mg every morning, omeprazole 40 mg daily before breakfast, pravastatin 40 mg at bedtime, Lyrica 200 mg twice a day, folic acid 1 mg daily, coenzyme Q10 100 mg daily, fexofenadine 180 mg daily as needed for allergies, sustained release morphine tablets 60 mg q.12 hours for chronic neuropathy pain, guaifenesin 600 mg twice a day, Phenergan 25 mg q.6 hours p.r.n. for nausea and DuoNeb medicated aerosol treatments 2-4 daily as needed for shortness of breath. cc: MD Angel Spaulding MD
== END 2016-10-04 10:48 | disposition home or self-care (01) ==
LOC: ED 11:29 → 3N 18:07
PROVIDERS: ADMIT Internal Medicine; ATTEND Internal Medicine

== ENCOUNTER 2018-07-31 08:50 | Inpatient (IN) ==
[2018-07-31] MEDS ORDERED: NS 1,000 ML IV ONE ×2 (09:08→13:02)
[2018-07-31] MEDS ORDERED: ZOFRAN IV ONE (09:08)
[2018-07-31] MEDS ORDERED: MORPHINE IV ONE ×2 (09:08→13:32)
--- NOTE | 2018-07-31 10:00 | Diag Imaging Result Doc PS360 ---
EXAM: CHEST-PORTABLE INDICATION: epigastric pain, vomiting TECHNIQUE: One view COMPARISON: 06/14/2018 FINDINGS: The lungs are grossly clear. There is no discrete pleural fluid collection or pneumothorax. The cardiomediastinal silhouette and central vasculature are grossly unremarkable. IMPRESSION: No evidence of acute pathology by plain radiograph. Electronically signed by Kyle Laird 07/31/2018 9:57 AM
[2018-07-31 11:09] LABS: BASO# 0.01 X1000 (0.0-0.2); BASO% 0.1 % (0.0-0.8); EOS# 0.01 X1000 (0.0-0.7); EOS% 0.1 % (0.0-10.0); HEMATOCRIT 41.7 % (42.0-52.0); IMM GRAN# 0.03 X1000 (0.0-0.04); IMM GRAN% 0.2 % (0.0-0.5); LYMPH# 1.06 X1000 (1.2-3.4); LYMPH% 8.2 % (20.5-51.1); MCH 26.6 PG (27-31); MCHC 33.6 g/dL (33-37); MCV 79.1 FL (81-99); MONO# 0.91 X1000 (0.11-0.59); MONO% 7.1 % (1.7-9.3); MPV 9.7 FL (7.4-10.4); NEUT# 10.88 X1000 (1.4-6.5); NEUT% 84.3 % (42.2-75.2); PLT 618 X1000 (130-400); RBC 5.27 XMIL (4.7-6.1); RDW 15.2 % (11.5-14.5)
[2018-07-31 11:23] LABS: AGAP 23; ALB/GLOB RATIO 1.3; ALBUMIN 3.9 g/dL (3.5-5.0); ALKALINE PHOSPHATASE 149 U/L (32-122); AMYLASE 51 U/L (20-200); BUN 23 mg/dL (8-22); CALCIUM 9.1 mg/dL (8.8-10.2); CHLORIDE 92 mmol/L (98-107); COSMO 270; CREATININE 0.9 mg/dL (0.7-1.2); ESTIMATED GFR > 60; GLUCOSE 128 mg/dL (70-104); GOT 19 U/L (10-34); GPT 9 U/L (10-44); LIPASE 26 U/L (13-60); MAGNESIUM 2.4 mg/dL (1.5-2.7); POTASSIUM 4.7 mmol/L (3.5-5.1); SODIUM 132 mmol/L (136-145); TCO2 17 mmol/L (25-35); TOTAL BILIRUBIN 0.72 mg/dL (0.20-1.00); TOTAL PROTEIN 6.8 g/dL (6.3-8.3)
[2018-07-31 11:42] LABS: ALLEN TEST YES; BLOOD TYPE ARTERIAL; HCO3-(ACT) 23.3 mmoll (20.0-26.0); METHB 0.7 % (0.0-1.5); O2(CT) 18.8 mL/dL (15.0-23.0); O2HB 95.2 % (95.0-99.0); PCO2(98.6) 25 mmHg (35-45); PO2(98.6) 72 mmHg (60-100); SAMPLE BLOOD; SAO2 97.4 % (95.0-100.0)
[2018-07-31 11:58] LABS: URINE SOURCE CLEAN CATCH
[2018-07-31 12:04] LABS: BILIRUBIN URINE SMALL (NEGATIVE); BLOOD URINE SMALL (NEGATIVE); COLOR YELLOW; GLUCOSE URINE NEGATIVE (NEGATIVE); KETONE URINE 150 mg/dL (NEGATIVE); LEUKOCYTES URINE TRACE (NEGATIVE); NITRITE URINE NEGATIVE (NEGATIVE); PH URINE 5.5; PROTEIN URINE 50 mg/dL (NEGATIVE); SP GRAVITY URINE 1.027; TURBIDITY URINE CLEAR (CLEAR); UR EPITHELIAL CELLS <10 /HPF (<10); URINE BACTERIA NEGATIVE /HPF; URINE RBC <10 /HPF (<10); URINE WBC <10 /HPF (<10); UROBILINOGEN URINE 3 mg/dL (NORMAL)
[2018-07-31 12:10] LABS: INR 0.95; PROTIME 13.4 Seconds (11.0-16.0)
[2018-07-31 12:22] LABS: URINE YEAST PRESENT
[2018-07-31] MEDS ORDERED: BENADRYL IV ONE (12:44)
[2018-07-31] MEDS ORDERED: REGLAN IV ONE (12:44)
--- NOTE | 2018-07-31 12:54 | Diag Imaging Result Doc PS360 ---
EXAM: CT ABD/PELVIS W/IV CONT ONLY INDICATION: SBO TECHNIQUE: This exam was performed using automated exposure control, adjustment of mA or kV according to patient size, and/or use of iterative reconstruction technique. COMPARISON: 02/03/2018 FINDINGS: There is stable bronchiectasis at the left lung base. There are mild tree-in-bud opacities at the left lung base as well suggesting bronchiolitis this has improved as compared to the previous abdominal CT and is similar to a prior CT of the chest dated 05/25/2018. There has been a prior cholecystectomy. There is likely very mild hepatic steatosis. The liver is unremarkable, otherwise. The spleen is unremarkable. There is a cystic lesion involving the tail of the pancreas that is larger than the previous study measuring up to 2.4 cm (1.7 cm previously. This difference may be, at least in part, due to differences in slice registration. There is also ill-defined low attenuation associated with the pancreatic head. This is similar to the previous study it probably represents a complex cystic structure. It is nonspecific. It measures approximately 2.1 x 2.2 cm axially. The adrenal glands are unremarkable. There is a stable small cyst at the lower pole of the right kidney. The kidneys are essentially unremarkable, otherwise. The urinary bladder is partially distended and is grossly unremarkable, otherwise. The prostate is somewhat enlarged but stable. There is mild uncomplicated diverticulosis coli. The rectal wall appears somewhat thickened. Consider proctitis. The duodenum and proximal jejunum are mildly prominent containing air-fluid levels. This is nonspecific and may represent a mild ileus. There is nothing that would necessarily indicate obstruction. Otherwise, no focal inflammatory changes, free abdominal gas, or free fluid is identified. There is extensive aortoiliac atherosclerotic disease and there is stable subaneurysmal ectasia of the infrarenal aorta. There are several stable lumbar and lower thoracic vertebral body compression deformities. There is metallic hardware associated with the right hip. IMPRESSION: 1.The rectal wall appears somewhat thickened diffusely. Consider proctitis. 2.Mildly prominent duodenum and proximal jejunum which may indicate mild ileus. There is nothing that would necessarily indicate obstruction. 3.Left basilar bronchiectasis and mild tree-in-bud opacities that are essentially stable as compared to a prior chest CT performed in late April of this year. 4.Other incidental/nonacute findings detailed above. Electronically signed by Kyle Laird 07/31/2018 12:52 PM
[2018-07-31] MEDS ORDERED: ZOSYN 4.5 GM in NS 100 ML IV ONE (12:59)
[2018-07-31] MEDS ORDERED: DIFLUCAN 400 MG/NS 400 MG/200 ML IVPB IV ONE (12:59)
--- NOTE | 2018-07-31 13:27 | PROVIDER DOCUMENTATION ---
This chart was entered by Moraima Brown Scribe, acting as scribe for Yoseph Montes MD. HPI-Abdominal Pain/GI Problem - General Chief Complaint: Nausea/Vomiting Stated Complaint: NAUSEATED/GAGGING ALL NIGHT Time Seen by Provider: 07/31/18 09:01 Source: patient Allergies/Adverse Reactions: Patient Allergies Allergy/AdvReac Type Severity Reaction Status Date / Time No Known Allergies Allergy Verified 07/07/18 08:27 Home Medications: Home Medication List Medication Instructions Recorded Confirmed Last Taken Type Tamsulosin [Flomax] 0.4 mg PO HS 04/20/12 03/12/18 03/11/18 18:00 History PRAVAstatin [Pravachol] 40 mg PO QHS #0 tablet 01/12/15 03/12/18 03/11/18 18:00 Rx Pregabalin [Lyrica] 200 mg PO BID #0 capsule 01/12/15 03/12/18 03/11/18 08:00 Rx Duloxetine [Cymbalta] 60 mg PO DAILY 04/19/17 03/12/18 03/11/18 08:00 History Acetaminophen [Tylenol] 650 mg PO Q6H PRN PRN tablet 04/21/17 03/12/18 08/02/17 Rx 650 Cyanocobalamin [Vitamin B-12] 1,000 microgm PO DAILY tablet 04/21/17 03/12/18 03/11/18 08:00 Rx Hydroxyzine [Atarax] 25 mg PO TID PRN PRN tablet 09/01/17 03/12/18 11/16/17 Rx Folic Acid 1 mg PO HS tablet 11/10/17 03/12/18 03/11/18 18:00 Rx Polyethylene Glycol 3350 [Miralax] 17 gm PO DAILY #1 powd.pack 11/19/17 03/12/18 03/11/18 08:00 Rx Promethazine [Phenergan] 25 mg PO Q6H PRN PRN #20 tab 11/19/17 03/12/18 Unknown Rx Morphine E.r. [Ms Contin] 30 mg PO Q12HR tablet 02/25/18 03/12/18 03/11/18 18:00 Rx Omeprazole [Prilosec] 40 mg PO DAILY #90 capsule. 02/25/18 03/12/18 03/11/18 08:00 Rx Sennosides/Docusate Sodium 1 each PO BID PRN PRN #0 02/25/18 03/12/18 11/14/17 Rx [Senna-S Tablet] Albuterol 2.5MG/Ipratrop 0.5MG 3 ml INH RTTID neb 03/16/18 Unknown Rx [Duoneb (A & A)] Cyclobenzaprine [Flexeril] 10 mg PO DIRECTED PRN PRN #1 03/16/18 Unknown Rx tablet Docusate Sodium [Colace] 200 mg PO QHS capsule 03/16/18 Unknown Rx Enoxaparin [Lovenox] 40 mg SUBQ Q24H syringe 03/16/18 Unknown Rx Fexofenadine [Mildred] 180 mg PO DAILY PRN PRN #1 tablet 03/16/18 Unknown Rx Magnesium Hydroxide [Milk of 30 ml PO DAILY PRN PRN udc 03/16/18 Unknown Rx Magnesia] Nicotine Patch [Nicoderm Patch] 14 mg TD DAILY patch.td24 03/16/18 Unknown Rx Oxycodone I.r. [Oxy Ir] 5 mg PO Q3H PRN PRN tablet 03/16/18 Unknown Rx Cetirizine HCl [Zyrtec] 10 mg PO DAILY #20 tab 06/02/18 Unknown Rx Hydroxyzine [Atarax] 25 mg PO TID PRN #30 tab 06/02/18 Unknown Rx Hydroxyzine HCl 25 mg PO DAILY #20 tab 06/14/18 Unknown Rx Ondansetron [Zofran] 4 mg PO Q6H PRN PRN #20 tab 06/14/18 Unknown Rx Sertraline [Zoloft] 25 mg PO DAILY #30 tab 07/07/18 Unknown Rx - History of Present Illness-ABD Nature of Presenting Problems: 83 y/o male presents to ED with N/V and upper abdominal pain onset yesterday. Pt reports he had a bowel movement yesterday. Pt has hx bowel obstruction. Pt is alert and oriented. Abdominal Pain Onset Location: reports: generalized abdomen (upper) Pain Radiation: reports: no radiation Quality of Pain: reports: aching Severity in ED: reports: moderate, severe Onset/Duration: reports: 24 hours ago Timing: reports: still present Activities at Onset: reports: none Exposure to sick contacts?: No Modifying Factors: worse with: palpation Associated Symptoms: reports: nausea, vomiting, other (upper abdominal pain) Last BM: 24 hours ago Dark Stools Present?: reports: none noticed Rectal Bleeding: reports: none Rectal Pain: reports: none Similar Symptoms Previously?: Yes (hx bowel obstruction) Recently seen or treated by another doctor?: No Review of Systems - Adult - REVIEW OF SYSTEMS - ADULT Constitutional: denies: chills, fever Eyes: reports: no symptoms reported Ears, Nose, Mouth & Throat: reports: no symptoms reported Cardiovascular: denies: chest pain, palpitations Respiratory: denies: cough, shortness of breath Gastrointestinal: reports: abdominal pain (upper), nausea, vomiting. denies: diarrhea Genitourinary: reports: no symptoms reported Musculoskeletal: denies: back pain, joint pain Integumentary: reports: no symptoms reported Neurological: denies: dizziness/vertigo, seizure Psychiatric: reports: no symptoms reported Endocrine: reports: no symptoms reported Hematologic/Lymphatic: reports: no symptoms reported Allergic/Immunologic: reports: no symptoms reported All Other Systems: Reviewed and Negative Past History - Adult - PAST MEDICAL HISTORY-ADULT Review of Records: reports: Old Records Reviewed, Nursing Assessment Review, Medications Reviewed Major Childhood Illnesses: reports: denies history Cardiovascular: reports: HTN, hyperlipidemia. denies: cardiac disease Respiratory: reports: cancer (lung), other (CHRONIC BRONCHIETASIS, COPD, SMOKER , DR WU) Gastrointestinal: reports: diverticulosis, GERD, IBS, obstruction, pancreatitis, other Obstetrical/Gynecological: reports: denies history Genitourinary: reports: prostatitis, prostate cancer Musculoskeletal: reports: chronic pain Neurological: reports: dementia, other (CHRONIC PAIN FUL NEUROPATHY- [place] PAIN W/ SM30MG BID AND NORCO) Endocrine/Immune: reports: Diabetes Other Conditions: reports: denies history, cataract/glaucoma - PRIOR SURGERIES/PROCEDURES Surgical/Procedure History: reports: appendectomy, cholecystectomy, hernia repair, orthopedic (extremity), back/neck, other (cataract removal; lung biopsy; R kidney) - PRIOR HOSPITALIZATIONS Prior Hospitalizations: reports: for other non-related - IMMUNIZATION STATUS Childhood Immunizations: UTD, See Nurse Assessment Flu Vaccine: See Nurse Assessment - FAMILY HISTORY Family History: reviewed, not pertinent - SOCIAL HISTORY Smoking: greater than 1 pack/day Provider spent 3-5 mins advising pt. on dangers of tobacco.: Discussed manners to quit use, and f/u contacts for add'l counseling. Substance Use: none/never Alcohol Use Frequency: never Living Situation: family Physical Exam-General - PHYSICAL EXAM-ADULT Initial Vital Signs Reviewed: Yes - CONSTITUTIONAL General Appearance: appears well, alert, anxious, other (tearful) - EYES Eyes: PERRL/EOMI, pink conjunctivae - HEAD, EARS, NOSE, MOUTH & THROAT HENMT: normocephalic/atraumatic, moist mucous membranes, normal ENT inspection - NECK Neck: non-tender, full range of motion - RESPIRATORY Respiratory: chest non-tender, lungs clear, normal breath sounds - CARDIOVASCULAR Cardiovascular: normal peripheral pulses, regular rate, rhythm - GASTROINTESTINAL (ABDOMEN) Abdominal Exam: soft, abnormal bowel sounds (hyperactive; more so on the R), tenderness (upper). negative: guarding, rebound - MUSCULOSKELETAL Back Exam: normal inspection, no CVA tenderness Extremity: normal range of motion, non-tender, normal gait - SKIN Integumentary: normal color, warm/dry - NEUROLOGIC Neurologic: grossly normal - PSYCHIATRIC Psych/Mental Status: normal mood/affect, anxious, tearful Progress - PLAN OF CARE/RESULTS Progress/Plan/Lab Results: Vital Signs - 8 hr 07/31/18 08:55 Temperature 97.0 F L Pulse Rate 106 H Respiratory Rate 20 Blood Pressure 109/65 O2 Sat by Pulse Oximetry 100 Orders Category Date Time Status Saline Loc NOW Care 07/31/18 09:06 Active CHEST-PORTABLE [RAD] Stat Exams 07/31/18 09:[address] ABD/PELVIS W/IV CONT ONLY [CT] Stat Exams 07/31/18 09:08 Ordered AMYLASE [CHEM] Stat Lab 07/31/18 09:07 Uncollected CBC WITH ELECTRONIC DIFF [HEME] Stat Lab 07/31/18 09:07 Uncollected COMPREHENSIVE METABOLIC PANEL [CHEM] Stat Lab 07/31/18 09:07 Uncollected LACTATE, PLASMA [CHEM] Stat Lab 07/31/18 09:07 Uncollected LIPASE [CHEM] Stat Lab 07/31/18 09:07 Uncollected MAGNESIUM [CHEM] Stat Lab 07/31/18 09:07 Uncollected PRO B-NATRIURETIC PEPTIDE Stat Lab 07/31/18 09:07 Uncollected PROTIME WITH INR [COAG] Stat Lab 07/31/18 09:07 Uncollected TROPONIN T Stat Lab 07/31/18 09:07 Uncollected URINALYSIS W/POSS RFLX CULT [URINALYSIS] Stat Lab 07/31/18 09:07 Uncollected 0.9% Sodium Chloride Inj [Ns] 1,000 ml Med 07/31/18 09:08 Discontinued IV 999 mls/hr Morphine Med 07/31/18 09:08 Discontinued 4 mg IV NOW ONE Ondansetron [Zofran] Med 07/31/18 09:08 Discontinued 4 mg IV NOW ONE EKG [EKG] Stat Ther 07/31/18 09:06 Ordered Laboratory Tests 07/31/18 07/31/18 07/31/18 10:00 10:00 10:00 WBC 12.90 H RBC 5.27 Hgb 14.0 Hct 41.7 L MCV 79.1 L MCH 26.6 L MCHC 33.6 RDW Std Deviation 15.2 H Plt Count 618 H MPV 9.7 Immature Gran % (Auto) 0.2 Neut % (Auto) 84.3 H Lymph % (Auto) 8.2 L Faulkner % (Auto) 7.1 Eos % (Auto) 0.1 Baso % (Auto) 0.1 Immature Gran # (Auto) 0.03 Neut # (Auto) 10.88 H Lymph # (Auto) 1.06 L Faulkner # (Auto) 0.91 H Eos # (Auto) 0.01 Baso # (Auto) 0.01 Specimen Type Sample Site pH pCO2 pO2 HCO3 Base Excess Oxyhemoglobin ABG O2 Sat (Calculated) ABG O2 Saturation ABG Carboxyhemoglobin ABG Methemoglobin Rakan Test A-a O2 Difference Total Hemoglobin Lactate FiO2 % Sodium 132 L Potassium 4.7 Chloride 92 L Carbon Dioxide 17 L Anion Gap 23 BUN 23 H Creatinine 0.9 Estimated GFR/1.73 m2 > 60 BUN/Creatinine Ratio 26 Glucose 128 H Calculated Osmolality 270 Calcium 9.1 Magnesium 2.4 Total Bilirubin 0.72 AST 19 ALT 9 L Alkaline Phosphatase 149 H Troponin T < 0.010 Total Protein 6.8 Albumin 3.9 Globulin 2.9 Albumin/Globulin Ratio 1.3 Amylase 51 Lipase 26 07/31/18 11:10 WBC RBC Hgb Hct MCV MCH MCHC RDW Std Deviation Plt Count MPV Immature Gran % (Auto) Neut % (Auto) Lymph % (Auto) Faulkner % (Auto) Eos % (Auto) Baso % (Auto) Immature Gran # (Auto) Neut # (Auto) Lymph # (Auto) Faulkner # (Auto) Eos # (Auto) Baso # (Auto) Specimen Type ARTERIAL Sample Site R RADIAL pH 7.50 H pCO2 25 L pO2 72 HCO3 23.3 Base Excess -2.0 Oxyhemoglobin 95.2 ABG O2 Sat (Calculated) 18.8 ABG O2 Saturation 97.4 ABG Carboxyhemoglobin 1.60 ABG Methemoglobin 0.7 Rakan Test YES A-a O2 Difference 46.0 Total Hemoglobin 14.0 Lactate 0.90 FiO2 % 21.0 Sodium Potassium Chloride Carbon Dioxide Anion Gap BUN Creatinine Estimated GFR/1.73 m2 BUN/Creatinine Ratio Glucose Calculated Osmolality Calcium Magnesium Total Bilirubin AST ALT Alkaline Phosphatase Troponin T Total Protein Albumin Globulin Albumin/Globulin Ratio Amylase Lipase Result Diagrams: 07/31/18 10:00 07/31/18 10:00 - REASSESSMENT Reassessment #1 Time Reassessed: 13:03 Status: improving (Patient meets criteria for sepsis, based on WBC and tachycardia, but NOT severe sepsis as lactate is normal and he is not hypotensi ve. There do not appear to be any signs of end organ damage. He seems to have proctitis and a yeast UTI. In addition to IVF boluses, pain meds, anti-emetics, we are giving zosyn for proctitis and IV fluconazole for UTI.) - EKG 1 Time of EKG reading by physician:: 12:58 EKG Read and Signed by:: Yoseph Montes EKG Interpretation (*Must complete 3 of following elements*): Abnormal Rate: 82 Rhythm: NSR [place]: normal QRS: other (bifascicular block) TN Interval: normal ST Wave: non-specific ST changes Prior EKG Comparison: unchanged from prior (03/27/18) Comments: prolonged QTc - XRAY 1 XRAY Study: Chest Impression: Normal (FINDINGS: The lungs are grossly clear. There is no discrete pleural fluid collection or pneumothorax. The cardiomediastinal silhouette and central vasculature are grossly unremarkable. IMPRESSION: No evidence of acute pathology by plain radiograph. Electronically signed by Kyle Laird 07/31/2018 9:57 AM) - CT/MRI 1 CT Study: Abdomen, Pelvis Impression: Abnormal (FINDINGS: There is stable bronchiectasis at the left lung base. There are mild tree-in-bud opacities at the left lung base as well sugges ting bronchiolitis this has improved as compared to the previous abdominal CT and is similar to a prior CT of the chest dated 05/25/2018. There has been a prior cholecystectomy. There is likely very mild hepatic steatosis. The liver is unremarkable, otherwise. The spleen is unremarkable. There is a cystic lesion involving the tail of the pancreas that is larger than the previous study measuring up to 2.4 cm (1.7 cm previously. This difference may be, at least in part, due to differences in slice registration. There is also ill-defined low attenuation associated with the pancreatic head. This is similar to the previous study it probably represents a complex cystic structure. It is nonspecific. It measures approximately 2.1 x 2.2 cm axially. The adrenal glands are unremarkable. There is a stable small cyst at the lower pole of the right kidney. The kidneys are essentially unremarkable, otherwise. The urinary bladder is partially distended and is grossly unremarkable, otherwise. The prostate is somewhat enlarged but stable. There is mild uncomplicated diverticulosis coli. The rectal wall appears somewhat thickened. Consider proctitis. The duodenum and proximal jejunum are mildly prominent containing air-fluid levels. This is nonspecific and may represent a mild ileus. There is nothing that would necessarily indicate obstruction. Otherwise, no focal inflammatory changes, free abdominal gas, or free fluid is identified. There is extensive aortoiliac atherosclerotic disease and there is stable subaneurysmal ectasia of the infrarenal aorta. There are several stable lumbar and lower thoracic vertebral body compression deformities. There is metallic hardware associated with the right hip. IMPRESSION: 1.The rectal wall appears somewhat thickened diffusely. Consider proctitis. 2.Mildly prominent duodenum and proximal jejunum which may indicate mild ileus. There is nothing that would necessarily indicate obstruction. 3.Left basilar bronchiectasis and mild tree-in-bud opacities that are essentially stable as compared to a prior chest CT performed in late April of this year. 4.Other incidental/nonacute findings detailed above. Electronically signed by Kyle Laird 07/31/2018 12:52 PM) - CONSULTS/PCP/HOSPITALIST Notification #1 *Consult/PCP/Hospitalist*: Tez (electronic field service engineer for [employer]) paged at 1300 Time Discussed: 13:27 Consult Disposition: Will see in ED Departure - Departure Date of Disposition Decision: 07/31/18 Time of Disposition Decision: 13:04 DIAGNOSIS: Abdominal pain of unknown cause, Ileus, unspecified, Proctitis, Candidal UTI (urinary tract infection), Sepsis without acute organ dysfunction Intractable nausea and vomiting Qualifiers: Vomiting type: cyclical vomiting Qualified Code(s): G43.A1 - Cyclical vomiting, intractable Disposition: ADMITTED INPATIENT 09 Certified Medical Emergency: Emergent Condition: Fair Referrals and Follow-Ups: Angel Reyna MD [Primary Care Provider] - Discharge Education: Steps to Quit Smoking, [id number] - Critical Care Note This patient required my direct & personal management of CC.: Yes Total Time (mins): 40 Critical Care Statement: This patient required my direct personal management to treat or rule out processes, the absence of which, could potentiallly result in sudden, clinically significant life or limb threatening deterioration. Attestation - Physician/ FLIP Attestation Patient care was provided by Advanced Practice Provider:: No The physician spent face to face time with patient:: Yes Advanced Practice Provider documentation review:: Supervising physician onsite and consulted in the evaluation and care of this patient. The physician did have a face to face encounter with the patient. This chart was documented by the indicated scribe, (Moraima Brown Scribe) and accurately reflects the services I performed and decisions made by me, Yoseph Montes MD, as attested by the provider's signature.
[2018-07-31] MEDS ORDERED: COMPAZINE IV ONE (13:33)
[2018-07-31] MEDS ORDERED: TYLENOL PO PRN (15:00)
--- NOTE | 2018-07-31 15:37 | HISTORY AND PHYSICAL ---
CHIEF COMPLAINT: Nausea and vomiting. HISTORY OF PRESENT ILLNESS: Mr. Silvestre is an 83-year-old gentleman followed by Dr. Angel Reyna with a complex past medical history including recurrent bronchiectasis and recent radiation therapy for right upper lobe lung cancer as well as recent right hip fracture and COPD with ongoing nicotine use. He presented to the emergency room earlier today with a 2 to 3 day history of initially constipation followed by nausea and vomiting. His is with him and says that his last normal meal was either night or breakfast on Wednesday. He felt very constipated and took some milk of magnesia. Wednesday, he had several bowel movements which were had balls at first but then became soft formed stool. He says that initially it was quite dark but turned normal brown fairly quickly. He has not had any true melena or bright red blood per rectum. He has had multiple episodes of dry heaves but no actual vomiting. He has had no fever or chills. He does have a chronic cough intermittently productive of yellow to white sputum and has continued using his 3 times a day DuoNebs at home. His says he has had very little to eat or drink over the last 48 hours. Evaluation in the emergency room here revealed a mild leukocytosis with white blood count of 12,900, hemoglobin and hematocrit are low normal. MCV is 79. Liver function tests, amylase and lipase are normal. His ProBNP is elevated at 1573. CT scan of his abdomen shows some stable bronchiectasis at the left base. The rectal wall was somewhat thickened. The duodenum and proximal jejunum contained air fluid levels, and the radiologist suggested proctitis and an ileus. PAST MEDICAL HISTORY: In addition to the above, he has a history of acute pancreatitis with pancreatic cysts noted on CT. He has history of both vitamin B12 and folate deficiency. Long history of anxiety, bronchiectasis, right bundle branch block, depression, dementia, type 2 diabetes controlled with diet, hypertension, dyslipidemia, and the lung cancer as noted above. HOME MEDICATIONS: Duloxetine 60 mg daily, folic acid 1 mg daily, DuoNeb 3 times a day, Lyrica 200 mg twice daily, MS Contin 30 mg twice daily, omeprazole 40 mg daily, pravastatin 40 mg nightly at bedtime, Phenergan 25 mg q.6 hours as needed for nausea, tamsulosin 0.4 mg daily, vitamin B12 1000 mcg daily. ALLERGIES: No known drug allergies. SOCIAL HISTORY: He is and lives with his . He has smoked up to 2 packs per day starting at age 16 but has reduced this to approximately 1/4 of a pack a day. He is retired from [employer]. FAMILY HISTORY: His father at age 86 due to complications from a stroke. His mother at age 92 with leukemia. REVIEW OF SYSTEMS: General: No fever, chills or night sweats. He appears to have lost some weight recently. Respiratory: As above. Cardiovascular: No recent chest pains, palpitations, orthopnea or PND. He does state that he sometimes uses oxygen at night. Gastrointestinal: Frequent constipation and history of fairly frequent nausea and vomiting at home. He had an unremarkable EGD and colonoscopy in 03/2017. : He does mention some warm feeling when he voids in his pelvic area. Musculoskeletal: His says he has recovered fairly well from his hip surgery in 02/2018 and has been up and out of bed, walking independently for several months. He did spend most of yesterday and perhaps the second half of Wednesday in the bed mostly. Neuropsychiatric: No previous history of strokes or seizures. He does have a history of depression in the past and has been on both sertraline and duloxetine. PHYSICAL EXAMINATION: VITAL SIGNS: Temperature is 97.0, blood pressure 145/83, pulse 106, respirations 20, O2 saturation is 92% on room air. GENERAL APPEARANCE: A chronically ill appearing elderly gentleman who was alert and talkative. HEENT: There is no visible evidence of trauma. Pupils are equal, round and reactive to light. Extraocular movements are intact. Sclerae are white. Oropharynx is edentulous but otherwise benign. NECK: Supple with no adenopathy, thyromegaly or bruits. I did not appreciate any jugular venous distention. CARDIOVASCULAR: Regular rate and rhythm. No murmurs or gallops. PULMONARY: Crackles at both bases with trace wheezing bilaterally at end expiration. His respirations seem somewhat increased, but air movement is good. ABDOMEN: Soft with very minimal diffuse tenderness. Bowel sounds are present and active. There is no guarding or rebound tenderness. EXTREMITIES: He moves all extremities well. No cyanosis, clubbing or edema. NEUROLOGICAL: His mental status and speech are intact. Cranial nerve examination is unremarkable. I do not appreciate any focal findings. ASSESSMENT: 1. Generally toxic and ill appearing gentleman with nausea and vomiting and borderline sepsis symptoms (elevated white blood count and tachypnea and tachycardia.) 2. Abnormal CT with probable ileus and proctitis. 3. History of lung cancer, status post radiation therapy. 4. History of recent right hip fracture. 5. yeast in his urine TREATMENT PLAN: He has been adequately fluid resuscitated in the emergency room with 2 L of normal saline and with his elevated ProBNP, I fear giving him much more. He has already received one dose of Zosyn and will order followup doses. He will be placed on a clear liquid diet and continued on his home medications. I will leave the decision about further fluconazole to Dr. Reyna. Dr. Reyna will assume responsibility for his care tomorrow morning. cc: Clayton Reagan MD [facility]
[2018-07-31] MEDS: ZOFRAN IV PRN ×2 (15:58→21:09)
[2018-07-31] MEDS: NS 1,000 ML IV SCH (16:08)
[2018-07-31] MEDS: ZOSYN 3.375 GM in NS 50 ML IV SCH ×2 (16:08→21:09)
[2018-07-31] MEDS: MORPHINE IV PRN ×2 (16:54→21:09)
[2018-07-31] MEDS: LYRICA PO SCH (20:13)
[2018-07-31] MEDS: FLOMAX PO SCH (20:13)
[2018-07-31] MEDS: LOVENOX SUBQ SCH (20:14)
[2018-07-31] MEDS: PRAVACHOL PO SCH (20:14)
[2018-07-31] MEDS: DUONEB (A & A) INH SCH (21:50)
[2018-08-01] MEDS: MORPHINE IV PRN ×5 (01:11→23:11)
[2018-08-01] MEDS: ZOFRAN IV PRN ×2 (01:15→05:34)
[2018-08-01] MEDS: ZOSYN 3.375 GM in NS 50 ML IV SCH ×4 (03:36→21:05)
[2018-08-01 07:35] LABS: BASO# 0.02 X1000 (0.0-0.2); BASO% 0.3 % (0.0-0.8); EOS# 0.24 X1000 (0.0-0.7); HEMATOCRIT 36.9 % (42.0-52.0); HEMOGLOBIN 12.7 g/dL (14.0-18.0); IMM GRAN# 0.04 X1000 (0.0-0.04); IMM GRAN% 0.7 % (0.0-0.5); LYMPH# 1.46 X1000 (1.2-3.4); LYMPH% 24.4 % (20.5-51.1); MCH 27.4 PG (27-31); MCHC 34.4 g/dL (33-37); MCV 79.5 FL (81-99); MONO# 0.73 X1000 (0.11-0.59); MONO% 12.2 % (1.7-9.3); MPV 9.6 FL (7.4-10.4); NEUT% 58.4 % (42.2-75.2); PLT 137 X1000 (130-400); RBC 4.64 XMIL (4.7-6.1); RDW 15.5 % (11.5-14.5); WBC 5.99 X1000 (4.8-10.8)
[2018-08-01 07:54] LABS: AGAP 18; BUN 20 mg/dL (8-22); CALCIUM 8.3 mg/dL (8.8-10.2); CHLORIDE 106 mmol/L (98-107); COSMO 285; CREATININE 0.8 mg/dL (0.7-1.2); ESTIMATED GFR > 60; GLUCOSE 79 mg/dL (70-104); POTASSIUM 3.8 mmol/L (3.5-5.1); SODIUM 142 mmol/L (136-145); TCO2 18 mmol/L (25-35)
[2018-08-01] MEDS: DUONEB (A & A) INH SCH ×3 (09:00→20:14)
[2018-08-01] MEDS: PRILOSEC PO SCH (09:05)
[2018-08-01] MEDS: MIRALAX PO SCH (09:05)
[2018-08-01] MEDS: LYRICA PO SCH ×2 (09:05→21:05)
[2018-08-01] MEDS: CYMBALTA PO SCH (09:05)
--- NOTE | 2018-08-01 11:06 | EKG Report ---
Test Performed on : 07/31/2018 12:38:51 PM Test Reason : epigastric pain, vomiting Blood Pressure : / mmHG Vent. Rate : 082 BPM Atrial Rate : 082 BPM P-R Int : 156 ms QRS Dur : 124 ms QT Int : 462 ms P-R-T Axes : 071 -69 037 degrees QTc Int : 539 ms Normal sinus rhythm. Right bundle branch block Left anterior fascicular block Bifascicular block Abnormal ECG When compared with ECG of 27-MAR-2018 14:35, Nonspecific T wave abnormality now evident in Inferior leads QT has lengthened Unconfirmed Result
[2018-08-01] MEDS: NS 1,000 ML IV SCH (18:48)
--- NOTE | 2018-08-01 19:55 | PROGRESS NOTE ---
DATE: 08/01/2018 SUBJECTIVE: Patient's chart was reviewed. In summary, patient was admitted yesterday with probable ileus and proctitis per CT scan. The patient was started on Zosyn therapy and IV fluids. A clear liquid diet was initiated. Over the course of the first 24 hours the hospitalization, patient has done reasonably well. He was originally seen this morning. At that time he was resting in bed. Through the day today patient states he did well. He has walked with physical therapy. He has tolerated a clear liquid diet. He denies fevers, chills, nausea, vomiting, shortness of breath, or chest discomfort. OBJECTIVE: T-max 98.2 degrees, heart rate 61 to 106, respirations 18 to 20, blood pressure 109 to 165 over 59 to 71.General: Chronically ill appearing, no acute distress. Cardiovascular: Regular rate and rhythm. No significant murmurs, rubs, or gallops. Pulmonary: Crackles at bilateral bases. Abdomen: Soft, nontender, nondistended. Positive bowel sounds. Extremities: Moves all extremities well. No significant clubbing, cyanosis, or edema. Dermatologic: Evaluation reveals no evidence of rash. LABORATORY DATA: White blood cell count 5.99, hemoglobin 12.7, hematocrit 36.9, platelet count is 137,000. Sodium 142, potassium 3.8, chloride 106, bicarb 18, BUN 20, creatinine 0.8, glucose 79, calcium 8.3. ASSESSMENT AND PLAN: 1. Proctitis with possible ileus-clinically, patient has shown significant improvement. For now, we will continue IV Zosyn therapy. As patient has tolerated a liquid diet, we will advance to a GI soft diet. We will follow patient's clinical course closely. Should patient have progressive symptoms, we will have a low threshold for gastroenterology consultation. 2. Borderline sepsis/systemic inflammatory response syndrome-this was manifest by an elevated white blood cell count, tachypnea, and tachycardia. With treatment as described above, each of these have improved considerably. He no longer meets criteria. 3. History of lung cancer-we will remain aware. 4. Bronchiectasis-patient has longstanding disease. We will continue to follow clinically. 5. Chronic pain-we will continue patient on Lyrica therapy. Exacerbations are being treated with intravenous morphine as needed. 6. Depression-we will continue patient on duloxetine therapy. 7. Disposition-at this point, patient continues to require senior living care in a hospital setting. We will plan discharge home once appropriate. cc: MD Clayton Rosa MD
[2018-08-01] MEDS: LOVENOX SUBQ SCH (21:05)
[2018-08-01] MEDS: FLOMAX PO SCH (21:05)
[2018-08-01] MEDS: PRAVACHOL PO SCH (21:05)
[2018-08-02] MEDS: MORPHINE IV PRN ×3 (03:13→13:05)
[2018-08-02] MEDS: ZOSYN 3.375 GM in NS 50 ML IV SCH ×2 (03:24→09:00)
[2018-08-02] MEDS: DUONEB (A & A) INH SCH (07:48)
[2018-08-02 08:06] LABS: BASO# 0.03 X1000 (0.0-0.2); BASO% 0.4 % (0.0-0.8); EOS# 0.21 X1000 (0.0-0.7); EOS% 2.8 % (0.0-10.0); HEMATOCRIT 35.7 % (42.0-52.0); HEMOGLOBIN 11.9 g/dL (14.0-18.0); IMM GRAN# 0.02 X1000 (0.0-0.04); IMM GRAN% 0.3 % (0.0-0.5); LYMPH# 1.39 X1000 (1.2-3.4); LYMPH% 18.9 % (20.5-51.1); MCH 26.9 PG (27-31); MCHC 33.3 g/dL (33-37); MCV 80.8 FL (81-99); MONO# 1.03 X1000 (0.11-0.59); MPV 9.1 FL (7.4-10.4); NEUT# 4.69 X1000 (1.4-6.5); NEUT% 63.6 % (42.2-75.2); PLT 444 X1000 (130-400); RBC 4.42 XMIL (4.7-6.1); RDW 15.4 % (11.5-14.5); WBC 7.37 X1000 (4.8-10.8)
[2018-08-02 08:19] LABS: AGAP 10; ALB/GLOB RATIO 1.2; ALBUMIN 3.2 g/dL (3.5-5.0); ALKALINE PHOSPHATASE 108 U/L (32-122); BUN 12 mg/dL (8-22); CALCIUM 8.4 mg/dL (8.8-10.2); CHLORIDE 108 mmol/L (98-107); COSMO 283; CREATININE 0.7 mg/dL (0.7-1.2); ESTIMATED GFR > 60; GLUCOSE 97 mg/dL (70-104); GOT 14 U/L (10-34); GPT 6 U/L (10-44); POTASSIUM 3.3 mmol/L (3.5-5.1); SODIUM 142 mmol/L (136-145); TCO2 24 mmol/L (25-35); TOTAL BILIRUBIN 0.41 mg/dL (0.20-1.00); TOTAL PROTEIN 5.9 g/dL (6.3-8.3)
[2018-08-02] MEDS: MIRALAX PO SCH (08:59)
[2018-08-02] MEDS: LYRICA PO SCH (08:59)
[2018-08-02] MEDS: PRILOSEC PO SCH (08:59)
[2018-08-02] MEDS: CYMBALTA PO SCH (08:59)
[2018-08-02 13:03] VITALS: BP 119/58
--- NOTE | 2018-08-02 20:42 | DISCHARGE SUMMARY ---
ADMISSION DATE: 07/31/2018 DISCHARGE DATE: 08/02/2018 ADMISSION DIAGNOSIS: Nausea and vomiting. DISCHARGE DIAGNOSES: 1. Proctitis with possible ileitis, improved. 2. Borderline sepsis/systemic inflammatory response syndrome, improved. 3. History of lung cancer, present on arrival. 4. Bronchiectasis, present on arrival. 5. Chronic pain, present on arrival. 6. Depression, present on arrival. CONSULTATIONS: None. PROCEDURES: CT scan of the abdomen and pelvis was performed on 07/31/2018 which revealed rectal wall appears somewhat thickened diffusely. Mildly prominent duodenum and proximal jejunum which may indicate mild ileus. There is nothing that would necessarily indicate obstruction. Left basilar bronchiectasis and mild tree-in-bud opacities that are essentially stable as compared to a prior chest CT performed in late April of this year. HISTORY AND PHYSICAL EXAMINATION: See admit note. PHYSICAL EXAMINATION PRIOR TO DISCHARGE: Temperature 97.5 degrees, heart rate 66, respirations 18, blood pressure 119/58. General: Chronically ill appearing, no acute distress. Cardiovascular: Regular rate and rhythm. No significant murmurs, rubs, or gallops. Pulmonary: Crackles at bilateral bases. Adequate air movement. Abdomen: Soft, nontender, nondistended. Positive bowel sounds. Extremities: Moves all extremities well. No significant clubbing, cyanosis, or edema. Dermatologic: Evaluation reveals no evidence of rash. LABORATORY DATA: Prior to discharge: White blood cell count 7.37, hemoglobin 11.9, hematocrit 35.7, platelet count 444,000. Sodium 142, potassium 3.3, chloride 108, bicarb 24, BUN 12, creatinine 0.7, glucose 97, calcium 8.4, total bilirubin 0.41, total protein 5.9, albumin 3.2, alkaline phosphatase 108, AST 14, ALT 6. HOSPITAL COURSE: Patient was admitted as per history and physical examination. Hospital course per condition is as follows. 1. Proctitis with possible ileitis-upon admission, patient was noted to have intractable abdominal pain with associated nausea and vomiting. CT scan was performed with above- mentioned results. The patient was started on Zosyn therapy as well as IV hydration. With this intervention, patient's overall condition rapidly improved. By day 2 of hospitalization, patient was able to tolerate clear liquids. On the day of discharge, patient had tolerated a bland diet for breakfast and lunch. He denied any nausea or vomiting at present time. Because of his rapid improvement, patient will be discharged home with Augmentin to complete 5 additional days. We will continue as needed Phenergan as an outpatient. 2. Borderline sepsis/systemic inflammatory response syndrome-this was manifest by an elevated white blood cell count, tachypnea, and tachycardia. With aggressive management, patient's condition rapidly improved. Blood cultures returned negative. Urine culture returned with mixed zafar. With aggressive management of the ileitis/proctitis, patient's symptoms improved. The patient will be discharged with close hospital followup. 3. History of lung cancer-the patient is status post XRT. We will remain aware. 4. Bronchiectasis-patient has longstanding disease. CT scan suggested stability. He had no evidence of acute exacerbation while hospitalized. We will continue his pulmonary prudent medications. 5. Chronic pain-patient was continued on Lyrica therapy while hospitalized. IV morphine was used as needed. We will transition patient back to MS Contin. We will follow this. 6. Depression-patient's symptoms remained adequately controlled with duloxetine therapy. DISCHARGE CONDITION: Good. DISPOSITION: Discharge to home. MEDICATIONS: 1. Augmentin 875/125 every 12 hours for 5 days. 2. Flomax 0.4 mg at bedtime. 3. Pravastatin 40 mg at bedtime. 4. Lyrica 200 mg twice daily. 5. Duloxetine 60 mg daily. 6. Acetaminophen 650 mg every 6 hours as needed. 7. Vitamin B12 1000 mcg daily. 8. Atarax 25 mg 3 times daily as needed. 9. Folic acid 1 mg at bedtime. 10. MiraLAX 17 g in 8 ounces of juice daily. 11. Phenergan 25 mg every 6 hours as needed. 12. MS Contin 30 mg every 12 hours. 13. Omeprazole 40 mg daily. 14. Senna-S 1 tablet twice daily as needed. 15. DuoNeb 3 times daily. 16. Mildred 180 mg daily as needed. 17. Flexeril 10 mg as needed. FOLLOWUP: The patient is to follow up with me in 1 to 2 weeks. cc: MD Clayton Rosa MD
== END 2018-08-02 15:22 | disposition home or self-care (01) | DRG 394 ==
LOC: ED 08:50 → 3N 14:57
PROVIDERS: ADMIT Internal Medicine; ATTEND Internal Medicine
CPT/HCPCS: 71010; 71045; 74177; 80048; 80053; 81001; 82150; 82805; 83605; 83690; 83735; 83880; 84484; 85025; 85610; 87040; 87088; 93005; 94640; 96365; 96366; 96375; 96376; 97116; 97162; 97530; 99285; 99291; A9270; J0780; J1200; J1450; J1650; J2270; J2405; J2543; J2765; J7030; Q9967

== ENCOUNTER 2018-08-15 13:42 | Inpatient (IN) ==
[2018-08-15] MEDS ORDERED: ZOFRAN IV PRN (14:28)
[2018-08-15] MEDS ORDERED: FLEXERIL PO PRN (14:28)
[2018-08-15] MEDS ORDERED: TYLENOL PO PRN ×2 (14:28)
[2018-08-15] MEDS ORDERED: ALLEGRA PO PRN (14:28)
[2018-08-15] MEDS ORDERED: ATARAX PO PRN (14:28)
[2018-08-15] MEDS ORDERED: PERICOLACE PO PRN (14:28)
[2018-08-15] MEDS: DUONEB (A & A) INH SCH ×2 (15:57→20:00)
--- NOTE | 2018-08-15 16:15 | Diag Imaging Result Doc PS360 ---
EXAM: CT ABDOMEN/PELVIS W/O CONTRAST INDICATION: Intractable nausea and abdominal pain TECHNIQUE: This exam was performed using automated exposure control, adjustment of mA or kV according to patient size, and/or use of iterative reconstruction technique. COMPARISON: 07/31/2018 FINDINGS: There is stable bronchiectasis at the lung bases, more prominent on the left. There is vague tree-in-bud opacity at the left lung base suggesting bronchiolitis, likely infectious. However, it is very similar as compared to the previous study. There has been a prior cholecystectomy. The liver, spleen, and adrenal glands are unremarkable. There is a stable 2 cm cystic structure at the tail the pancreas. The nonspecific vague low attenuation at the pancreatic head is also stable. There is a stable 2 cm cyst at the lower pole of the right kidney. There is a punctate nonobstructing intrarenal stone on the left. The kidneys are essentially unremarkable, otherwise. Urinary bladder is grossly unremarkable. The prostate is enlarged but stable. There is uncomplicated diverticulosis coli. The transverse colon is moderately gas-distended. There is focal narrowing of the transverse colon near the midline with minimal wall thickening. Focal stricture cannot be excluded. Note that the colon is distended both proximal and distal to this point. The remainder of the GI tract is grossly unremarkable as imaged. There is stable advanced aortoiliac atherosclerotic disease with subaneurysmal ectasia of the distal aorta. No focal inflammatory changes of, free gas, or free fluid is identified. IMPRESSION: 1.Moderately gas-distended transverse colon with focal narrowing at its midportion and suggestion of mild wall thickening. A partial stricture cannot be excluded. 2.Bibasilar bronchiectasis that is worst on the left with tree-in-bud opacities indicating bronchiolitis at the left lung base that is similar to the previous study. 3.Other incidental/nonacute findings detailed above. Electronically signed by Kyle Laird 08/15/2018 4:13 PM
[2018-08-15 16:55] LABS: EOS# 0.05 X1000 (0.0-0.7); EOS% 0.4 % (0.0-10.0); HEMATOCRIT 50.4 % (42.0-52.0); HEMOGLOBIN 16.7 g/dL (14.0-18.0); LYMPH# 2.05 X1000 (1.2-3.4); LYMPH% 18.2 % (20.5-51.1); MCH 27.7 PG (27-31); MCHC 33.1 g/dL (33-37); MCV 83.7 FL (81-99); MONO# 1.25 X1000 (0.11-0.59); MONO% 11.1 % (1.7-9.3); MPV 9.3 FL (7.4-10.4); PLT 302 X1000 (130-400); RBC 6.02 XMIL (4.7-6.1); RDW 17.9 % (11.5-14.5); WBC 11.27 X1000 (4.8-10.8)
[2018-08-15 16:56] LABS: BANDS 2 % (0-1); EOS 1 % (1-10); LYMPHS 19 % (21-51); MONO 13 % (1-9); SEGS 65 % (42-75)
[2018-08-15] MEDS: NS 1,000 ML IV SCH (16:59)
[2018-08-15 17:19] LABS: AGAP 14; ALB/GLOB RATIO 0.8; ALBUMIN 3.3 g/dL (3.5-5.0); ALKALINE PHOSPHATASE 132 U/L (32-122); BUN 23 mg/dL (8-22); CALCIUM 9.2 mg/dL (8.8-10.2); CHLORIDE 103 mmol/L (98-107); COSMO 279; CREATININE 0.8 mg/dL (0.7-1.2); ESTIMATED GFR > 60; GLUCOSE 117 mg/dL (70-104); GOT 17 U/L (10-34); GPT 5 U/L (10-44); POTASSIUM 4.5 mmol/L (3.5-5.1); SODIUM 137 mmol/L (136-145); TCO2 20 mmol/L (25-35); TOTAL PROTEIN 7.2 g/dL (6.3-8.3)
--- NOTE | 2018-08-15 18:10 | Diag Imaging Result Doc PS360 ---
EXAM: CHEST-2 VIEWS INDICATION: cough and congestion TECHNIQUE: 3 views COMPARISON: 07/31/2018 FINDINGS: There is stable mild elevation of the right hemidiaphragm. There is gaseous distention of the transverse colon underlying the diaphragm. The lungs are grossly clear. There is no discrete pleural fluid collection or pneumothorax. The cardiomediastinal silhouette and central vasculature are grossly unremarkable. IMPRESSION: Gaseous distention of the colon. No definite acute chest pathology. Electronically signed by Kyle Laird 08/15/2018 6:07 PM
[2018-08-15] MEDS: FOLIC ACID PO SCH (20:55)
[2018-08-15] MEDS: FLOMAX PO SCH (20:55)
[2018-08-15] MEDS: ZOSYN 3.375 GM in NS 50 ML IV SCH (20:55)
[2018-08-15] MEDS: LYRICA PO SCH (20:56)
[2018-08-15] MEDS: PRAVACHOL PO SCH (20:56)
[2018-08-15] MEDS: MS CONTIN PO SCH (20:56)
--- NOTE | 2018-08-15 22:43 | HISTORY AND PHYSICAL ---
PRIMARY CARE PHYSICIAN: Dr. Angel Reyna. CHIEF COMPLAINT: Nausea, fatigue. HISTORY OF PRESENT ILLNESS: An 83-year-old white male with a very complicated past medical history presents for evaluation of above-mentioned symptoms. Pertinent history of present illness began on July 31. At that time, patient was admitted with intractable nausea and vomiting. CT scan at that time suggested proctitis and possible ileitis. He was treated with Zosyn therapy as an inpatient followed above Augmentin for 5 days as an outpatient. Overall, patient's condition improved. He did reasonably well for approximately 1 week. Thereafter, he developed insomnia, not sleeping for approximately 4 nights. Since that time, he has developed intractable nausea and profound weakness. Patient's states that he has been in the bed the vast majority of the last 3 to 4 days. He has had abdominal discomfort, cough, and congestion. He denies fevers, dysuria, hematuria, pyuria, and chills. His p.o. intake has been minimal. Because of his profound weakness and progression of his current illness, patient will be admitted to the hospital for full evaluation and management. PAST MEDICAL HISTORY: 1. Multiple actinic keratoses and seborrheic keratoses. 2. History of acute cholecystitis status post laparoscopic cholecystectomy in 1984. 3. History of recurrent pancreatitis, most recent in 2007. 4. Folic acid deficiency. 5. Vitamin B12 deficiency. 6. Anxiety/depression. 7. Benign prostatic hypertrophy. 8. Bronchiectasis. 9. Right bundle branch block. 10. Dementia. 11. Depression. 12. Type 2 diabetes. 13. Insomnia. 14. History of diverticulitis. 15. Reflux disease. 16. Hypertension. 17. Hypertriglyceridemia. 18. History of a T12 compression fracture. 19. History of a right inguinal hernia status post surgical intervention in 2016. 20. Hyperlipidemia. 21. Hypoxia requiring nocturnal oxygen. 22. Irritable bowel syndrome. 23. Low back pain. 24. History of tobacco use. 25. Osteoarthritis. 26. Peripheral neuropathy. 27. History of a pulmonary nodule followed by Dr. Loera. 28. History of lung cancer status post XRT. 29. History of appendicitis status post open appendectomy in 1969. CURRENT MEDICATIONS: 1. Mildred 180 mg daily as needed. 2. Flexeril 10 mg 1/2 to 1 tablet 3 times daily as needed. 3. Duloxetine 60 mg daily. 4. Folic acid 1 mg daily. 5. Hydroxyzine 25 mg every 6 hours as needed. 6. DuoNeb 3 times daily. 7. Lyrica 200 mg twice daily. 8. MiraLAX 17 g in 8 ounces of juice nightly as needed. 9. MS Contin 30 mg twice daily. 10. Omeprazole 40 mg daily. 11. Pravastatin 40 mg at bedtime. 12. Phenergan 25 mg every 4 to 6 hours as needed. 13. Senna S twice daily as needed. 14. Tamsulosin 0.4 mg daily. 15. Vitamin B12 1000 mg daily. ALLERGIES: Patient answered no known drug allergies. SOCIAL HISTORY: The patient smoked as much as 2 packs per day starting at age 16. He currently is smoking 2 to 3 cigarettes per day. He denies current alcohol or illicit drug use. 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 He enjoys watching sports. He is unable to exercise routinely. FAMILY HISTORY: Patient's father passed at age 86 secondary to complications of a stroke. Patient's mother passed at age 92 secondary to complications of leukemia. REVIEW OF SYSTEMS: A 12 point review of systems was performed. Pertinent positives and negatives noted in history present illness. PHYSICAL EXAMINATION: VITAL SIGNS: Temperature 97.8 degrees, heart rate 76, respirations 18, blood pressure is 124/72. GENERAL: Chronically ill appearing, no acute distress. HEENT: Normocephalic, atraumatic. Pupils equal, round, reactive to light. Extraocular muscles intact. Sclerae anicteric. [place] conjunctivae. Oral and nasopharynx clear without exudate. NECK: Supple. No lymphadenopathy. No thyromegaly. No bruits auscultated. CARDIOVASCULAR: Regular rate and rhythm. No significant murmurs, rubs, or gallops. PULMONARY: Crackles at the right base. Adequate air movement. ABDOMEN: Soft, diffusely tender without guarding or rebound. Positive bowel sounds. EXTREMITIES: Moves all extremities well. No significant clubbing, cyanosis, or edema. DERMATOLOGIC: Evaluation reveals no evidence of rash. NEUROLOGIC: Cranial nerves 2 through 12 grossly intact. Motor and sensory grossly intact. PSYCHOLOGIC: Appropriate. LABORATORY DATA: White blood cell count 11.27, hemoglobin 16.7, hematocrit 50.4, platelet count 302,000. Sodium 137, potassium 4.5, chloride 103, bicarb 20, BUN 23, creatinine 0.8, glucose 117, calcium 9.2, total bilirubin 0.50, total protein 7.2, albumin 3.3, alkaline phosphatase 132, AST 17, ALT 5. CT scan of the abdomen and pelvis revealed a moderately gas distended transverse colon with focal narrowing at its midportion and suggestion of mild wall thickening. A partial stricture cannot be excluded. Bibasilar bronchiectasis that is worse on the left with tree-in-bud opacities indicating bronchiolitis at the left lung base that is similar to previous study. Chest x-ray revealed gaseous distention of the colon. No definite acute chest pathology. ASSESSMENT AND PLAN: An 83-year-old white male with a very complicated past medical history presents for evaluation of intractable nausea and fatigue/weakness. Unfortunately, patient basically has been a failure to thrive at home. CT scan suggested thickening of the transverse colon with a possible stricture. The patient will be admitted to the hospital for full evaluation and management of this condition. 1. Admit to General Medicine. 2. Colitis with possible stricture formation-as above, patient does have thickening of the transverse colon. At this point, highest on the differential is that of an underlying colitis. This certainly could be ischemic or infectious in etiology. Additionally, underlying malignancy will need to be considered. We will start patient on Zosyn therapy. We will consult Dr. Bates. We will determine if further intervention is warranted. 3. Nausea-this likely is multifactorial, but certainly could be secondary to underlying gastrointestinal pathology. We will treat patient symptomatically. We will follow this closely as well. 4. Dehydration-we will start patient on aggressive but cautious hydration. 5. Profound weakness-this likely is a consequence of his acute illness as well as chronic disease. We will treat as described. 6. Anorexia-we will encourage p.o. intake as tolerated. We will follow this as well. 7. Chronic anemia-we will remain aware. 8. Reflux disease-we will continue patient on pantoprazole therapy. 9. Hyperlipidemia-we will continue pravastatin therapy. 10. Peripheral neuropathy/chronic pain-we will continue patient on MS Contin. 11. Chronic hypoxia-we will continue patient on oxygen per protocol. 12. Bronchiectasis-CT scan suggests stability. We will remain aware. 13. Fluid, electrolytes, nutrition. We will monitor electrolytes. Normal saline at 75 mL an hour. Clear liquid diet. 14. Prophylaxis. Patient will be placed on subcu Lovenox. cc: Angel Reyna MD
[2018-08-16] MEDS: ZOSYN 3.375 GM in NS 50 ML IV SCH ×4 (02:09→20:21)
[2018-08-16] MEDS: NS 1,000 ML IV SCH ×3 (04:22→23:49)
[2018-08-16] MEDS: PRILOSEC PO SCH (06:09)
[2018-08-16] MEDS: DUONEB (A & A) INH SCH ×3 (07:52→21:00)
[2018-08-16] MEDS: VITAMIN B-12 PO SCH (08:54)
[2018-08-16] MEDS: MS CONTIN PO SCH ×2 (08:54→20:21)
[2018-08-16] MEDS: MIRALAX PO SCH (08:54)
[2018-08-16] MEDS: LYRICA PO SCH ×2 (08:55→20:21)
[2018-08-16] MEDS: LOVENOX SUBQ SCH (08:55)
[2018-08-16] MEDS: CYMBALTA PO SCH (08:55)
[2018-08-16] MEDS ORDERED: GOLYTELY PO ONE (16:58)
--- NOTE | 2018-08-16 18:43 | GASTROENTEROLOGY CONSULTATION ---
DATE: 08/16/2018 REASON FOR CONSULTATION: Nausea and abdominal pain. HISTORY OF PRESENT ILLNESS: This is an 83-year-old white male known to our practice. He was last seen in our office in December 2017. Patient has had multiple admissions to the hospital for abdominal pain. The patient was actually in the hospital admitted on July 31 for intractable nausea and vomiting. CT scan had showed proctitis and possible ileitis. He was treated with antibiotics and symptomatic treatment for his nausea. He improved and was discharged. Patient states he did well for about a week and then the symptoms returned. Again, patient has had multiple admissions in the past for similar symptoms. When he was in our office, he was doing better and had not complained of abdominal pain. He was taking a PPI and senna tablets 4 in the morning and 4 at night, with occasional MiraLAX. Patient has denied recent constipation. He does report generalized abdominal discomfort. No reported fever. He has reported weakness. PAST MEDICAL HISTORY: GERD, hyperlipidemia, hypertension, history of pancreatitis. Cholecystitis status post cholecystectomy. Vitamin deficiencies, anxiety, depression, BPH. Right bundle branch block. Dementia, depression, type 2 diabetes, insomnia, history of diverticulitis, history of compression fracture. Chronic low back pain. Osteoarthritis. History of pulmonary nodule. History of lung cancer status post radiation. PAST SURGICAL HISTORY: Appendectomy in the 1970s, right hip surgery, last colonoscopy was October 2017 that showed severe esophagitis, erosive gastritis and an ulcer in the antrum. He had an EGD and colonoscopy in March 2017 that showed mild esophagitis, colon polyps and distended, redundant colon. Patient has had right inguinal hernia repair. ALLERGIES: No known drug allergies. HOME MEDICATIONS: Tylenol 650 mg every 6 hours as needed, Albuterol inhaler 3 times a day, Augmentin 875 mg every 12 hours, vitamin B12 1000 mcg daily, Cymbalta 60 mg daily, Mildred 180 mg daily as needed, folic acid 1 mg every night, Atarax 25 mg 3 times a day as needed, MS Contin 30 mg every 12 hours, Prilosec 40 mg daily, MiraLAX 17 g daily, Pravachol 40 mg every night, Lyrica 200 mg twice a day, Phenergan 25 mg every 6 hours as needed, senna twice daily as needed, Flomax 0.4 mg every night. SOCIAL HISTORY: No reported alcohol use. Tobacco use currently smoking 2 to 3 cigarettes a day. FAMILY HISTORY: Father passed related to stroke. Mother due to complications of leukemia. REVIEW OF SYSTEMS: Per history of present illness. PHYSICAL EXAMINATION: Vital Signs: Temperature 98.1, pulse 76, respirations 18, blood pressure 135/67. General: Patient is awake and alert, in no acute distress. HEENT: Normocephalic, atraumatic. Pupils equal, round, reactive to light. Sclerae nonicteric. Cardiovascular: Regular rate and rhythm. Pulmonary: Essentially clear. Abdomen: Soft. Positive bowel sounds. Extremities: No lower extremity edema noted. Neurologic: Cranial nerves 2-12 are grossly intact. Patient is awake, alert, oriented to person, place and time. DIAGNOSTIC: Laboratory: Hematology: WBC 11.27, hemoglobin 16.7, hematocrit 50.4, MCV 83.7, platelets 302,000. Chemistry: Sodium 137, potassium 4.5, chloride 103, CO2 20, BUN 23, creatinine 0.8, glucose 117, total bilirubin 0.50, AST 17, ALT 5, alkaline phosphatase 132, albumin 3.3. Imaging: Abdominal and pelvis CT scan showed: 1. Moderately gas-distended transverse colon with focal narrowing at its midportion and suggestive of mild wall thickening, a partial stricture could not be excluded. 2. Bibasilar bronchiectasis, worse on the left. 3. Uncomplicated diverticulosis. 4. Nonobstructive left intrarenal stone. 5. Cyst at the tail of the pancreas measuring 2 cm. ASSESSMENT AND PLAN: 1. Colitis, recurrent. Patient was just recently in the hospital and treated with antibiotics. 2. Nausea. 3. Generalized abdominal pain. PLAN: Continue symptomatic treatment and supportive care. Patient's last EGD and colonoscopy was October 2017, EGD showing severe esophagitis, erosive gastritis and ulcer in antrum. Colonoscopy in March 2017 showed colon polyps with distention of the colon and redundant colon. Continue current medications. I have discussed this case with Dr. Bates who will review the CT scan and further plans will be made as indicated. Thank you for this consultation. Dictated by AMRITA Hernadez for Neil Bates MD cc: AMRITA Bay MD Scott A. Matthews, MD
--- NOTE | 2018-08-16 20:16 | PROGRESS NOTE ---
DATE: 08/16/2018 SUBJECTIVE: Upon my arrival this morning, patient stated he felt slightly improved from admission. Patient was continued on IV antibiotics and IV fluids. Throughout the day, patient did reasonably well. He tolerated a liquid diet. Dr. Bates was consulted. Colonoscopy is arranged for tomorrow. This evening, patient continues to have considerable weakness. He does, however, note some improvement from yesterday. He denies fevers, chills, shortness of breath, or chest discomfort. Nausea is present, but improving. Abdominal pain is minimal. OBJECTIVE: Vital Signs: T-max 98.1, heart rate 68 to 83, respirations 15 to 20, blood pressure 122-138 over 51-76. General: Chronically ill appearing, no acute distress. Cardiovascular: Regular rate and rhythm. No significant murmurs, rubs, or gallops. Pulmonary: Crackles at the bilateral bases, left greater than right. Adequate air movement. Abdomen: Soft. Diffusely tender, nondistended, positive bowel sounds. Extremities: Moves all extremities well. No significant clubbing, cyanosis, or edema. Dermatologic: Evaluation reveals no evidence of rash. LABORATORY DATA: None. ASSESSMENT AND PLAN: 1. Colitis with possible stricture formation-this was noted per CT scan. We will continue IV hydration and Zosyn therapy. As above, Dr. Bates has been consulted. We will plan colonoscopy in the a.m. Further recommendations will be made depending on his findings. 2. Nausea-patient has achieved improvement with IV antibiotics, IV hydration, and antiemetic agents. We will continue symptomatic management. 3. Dehydration-we will continue patient on IV hydration. Thus far, he has tolerated well. He is approaching euvolemia. 4. Profound weakness-after patient's colonoscopy, we will initiate physical therapy as patient is quickly becoming deconditioned. We will encourage activity. 5. Anorexia-this is likely a consequence of his colitis. We will treat as described above. 6. Chronic anemia-we will remain aware. 7. Reflux disease-we will continue patient on pantoprazole therapy. 8. Hyperlipidemia - We will continue pravastatin therapy. 9. Peripheral neuropathy/chronic pain-patient is treated with MS Contin. This will be continued. 10. Chronic hypoxia-Will continue oxygen per protocol. 11. Bronchiectasis-per CT scan, this was stable. We will continue pulmonary toilet. 12. Disposition-at this point, patient continues to require retirement care in the hospital setting. We will plan discharge home once appropriate. cc: Angel Reyna MD
[2018-08-16] MEDS: FLOMAX PO SCH (20:21)
[2018-08-16] MEDS: PRAVACHOL PO SCH (20:22)
[2018-08-16] MEDS: FOLIC ACID PO SCH (20:22)
[2018-08-17] MEDS: ZOSYN 3.375 GM in NS 50 ML IV SCH ×4 (01:32→22:01)
[2018-08-17] MEDS: PRILOSEC PO SCH (07:05)
[2018-08-17 07:10] LABS: BASO# 0.02 X1000 (0.0-0.2); BASO% 0.3 % (0.0-0.8); EOS# 0.28 X1000 (0.0-0.7); HEMATOCRIT 31.2 % (42.0-52.0); HEMOGLOBIN 10.3 g/dL (14.0-18.0); LYMPH# 1.25 X1000 (1.2-3.4); MCV 81.9 FL (81-99); MONO# 0.77 X1000 (0.11-0.59); MONO% 11.1 % (1.7-9.3); MPV 9.1 FL (7.4-10.4); NEUT# 4.63 X1000 (1.4-6.5); NEUT% 66.6 % (42.2-75.2); PLT 301 X1000 (130-400); RBC 3.81 XMIL (4.7-6.1); RDW 15.3 % (11.5-14.5); WBC 6.95 X1000 (4.8-10.8)
[2018-08-17 07:39] LABS: AGAP 9; ALB/GLOB RATIO 1.2; ALKALINE PHOSPHATASE 98 U/L (32-122); BUN 8 mg/dL (8-22); CHLORIDE 103 mmol/L (98-107); COSMO 270; CREATININE 0.6 mg/dL (0.7-1.2); ESTIMATED GFR > 60; GLUCOSE 91 mg/dL (70-104); GOT 12 U/L (10-34); GPT 5 U/L (10-44); POTASSIUM 3.7 mmol/L (3.5-5.1); SODIUM 136 mmol/L (136-145); TCO2 24 mmol/L (25-35); TOTAL BILIRUBIN 0.53 mg/dL (0.20-1.00); TOTAL PROTEIN 5.5 g/dL (6.3-8.3)
[2018-08-17] MEDS: DUONEB (A & A) INH SCH ×3 (08:06→21:36)
[2018-08-17] MEDS: MS CONTIN PO SCH ×2 (08:14→22:00)
[2018-08-17] MEDS: CYMBALTA PO SCH (08:20)
[2018-08-17] MEDS: VITAMIN B-12 PO SCH (08:20)
[2018-08-17] MEDS: LYRICA PO SCH ×2 (08:20→22:00)
[2018-08-17] MEDS: MIRALAX PO SCH (08:21)
[2018-08-17] MEDS: LOVENOX SUBQ SCH (08:22)
[2018-08-17] MEDS ORDERED: GOLYTELY PO ONE (14:00)
[2018-08-17] MEDS: NS 1,000 ML IV SCH (17:07)
--- NOTE | 2018-08-17 19:44 | GASTROENTEROLOGY PROGRESS NOTE ---
DATE: 08/17/2018 SUBJECTIVE: At the time of my visit, patient was up walking around in the room. He does fill some better. He drank a liter of GoLYTELY with 2 to 3 bowel movements reported. Patient is interested in proceeding with colonoscopy for further evaluation of his symptoms. OBJECTIVE: Vital Signs: Temperature 97.5 degrees, pulse 81, respirations 16, blood pressure 155/79. General: The patient is awake and alert, walking around in the room. He is in no acute distress. LABORATORY: Hematology: WBC 6.95, hemoglobin 10.3, hematocrit 31.2. Chemistry: Sodium 136, potassium 3.7, chloride 103, CO2 24, BUN 8, creatinine 0.6, glucose 91. ASSESSMENT AND PLAN: 1. Colitis, recurrent. Patient has had several hospitalizations. He is on antibiotics. 2. Nausea, improved. 3. Abdominal pain, improved. 4. Due to the patient's continued symptoms, we will proceed with a colonoscopy. Further plans will be made according to findings. He will need to drink the rest of the GoLYTELY colon prep. I have discussed benefits versus risks of colonoscopy procedure with the patient, and he wishes to proceed. I have discussed this case with Dr. Bates. Dictated by AMRITA Hernadez for Neil Bates MD cc: AMRITA Bay MD Scott A. Matthews, MD
--- NOTE | 2018-08-17 20:16 | PROGRESS NOTE ---
DATE: 08/17/2018 SUBJECTIVE: Upon my arrival this morning, patient noted some improvement in his overall condition. He had drank approximately 1/4 of his GoLYTELY as recommended by Dr. Bates. This evening, upon my arrival, patient states he continues to feel better. He denies any significant abdominal discomfort. He denies fevers and chills. His nausea has improved considerably. Energy level is low but improving. OBJECTIVE: Vital signs: T-max 98.0 degrees, heart rate 81 to 89, respirations 16 to 20, blood pressure 122 to 155 over 57 to 79. General: Chronically ill appearing, no acute distress. Cardiovascular: Regular rate and rhythm. No significant murmurs, rubs, or gallops. Pulmonary: Crackles at bilateral bases right greater than left. Abdomen: Soft, nontender, nondistended. Positive bowel sounds. Extremities: Moves all extremities well. No significant clubbing, cyanosis, or edema. Dermatologic: Evaluation reveals no evidence of rash. LABORATORY DATA: White blood cell count 6.95, hemoglobin 10.3, hematocrit 31.2, platelet count 301,000, sodium 136 potassium 3.7, chloride 103, bicarb 24, BUN 8, creatinine 0.6, glucose 91, calcium 8.0, total bilirubin 0.53, total protein 5.5, albumin 3.0, alkaline phosphatase 98, AST 12, ALT 5. ASSESSMENT AND PLAN: 1. Colitis with possible stricture formation--This was noted per CT scan. We will continue IV hydration and IV Zosyn therapy. We will plan colonoscopy per Dr. Bates tomorrow. We will determine if further intervention is warranted. 2. Nausea--Patient has achieved improvement with IV antibiotic, IV hydration, and antiemetic agents. We will continue each of these for now. 3. Dehydration--The patient has achieved much better hydration status with IV fluids. We will follow this as well. 4. Profound weakness--The patient has achieved improvement, although remains very weak with IV hydration. Once able, we will initiate physical therapy. 5. Anorexia--Patient is tolerating a clear liquid diet. 6. Chronic anemia--Interestingly, patient's hemoglobin and hematocrit have dropped considerably. We will recheck this in the morning. The question is raised whether he is losing blood or if this simply is dilutional. 7. Reflux disease--We will continue pantoprazole therapy. 8. Hyperlipidemia--We will continue pravastatin therapy. 9. Peripheral neuropathy--We will continue patient on MS Contin as prescribed by his pain specialist. 10. Chronic hypoxia--We will continue oxygen per protocol. 11. Bronchiectasis--Patient has longstanding disease. We will continue his home regimen. We will encourage aspiration precautions. DISPOSITION: At this point, patient continues to require group home care in a hospital setting. We will plan discharge home once appropriate. cc: Angel Reyna MD
[2018-08-17] MEDS: FOLIC ACID PO SCH (22:00)
[2018-08-17] MEDS: FLOMAX PO SCH (22:00)
[2018-08-17] MEDS: PRAVACHOL PO SCH (22:00)
[2018-08-18] MEDS: ZOSYN 3.375 GM in NS 50 ML IV SCH ×3 (04:29→17:48)
[2018-08-18] MEDS: PRILOSEC PO SCH (06:20)
[2018-08-18 07:18] LABS: BASO% 0.1 % (0.0-0.8); EOS% 3.6 % (0.0-10.0); HEMATOCRIT 33.7 % (42.0-52.0); HEMOGLOBIN 11.3 g/dL (14.0-18.0); IMM GRAN% 0.3 % (0.0-0.5); LYMPH% 16.1 % (20.5-51.1); MCH 27.3 PG (27-31); MCHC 33.5 g/dL (33-37); MCV 81.4 FL (81-99); MONO% 9.5 % (1.7-9.3); MPV 9.4 FL (7.4-10.4); NEUT# 4.88 X1000 (1.4-6.5); NEUT% 70.4 % (42.2-75.2); PLT 324 X1000 (130-400); RBC 4.14 XMIL (4.7-6.1); WBC 6.94 X1000 (4.8-10.8)
[2018-08-18 07:19] LABS: BASO# 0.01 X1000 (0.0-0.2); EOS# 0.25 X1000 (0.0-0.7); IMM GRAN# 0.02 X1000 (0.0-0.04); LYMPH# 1.12 X1000 (1.2-3.4); MONO# 0.66 X1000 (0.11-0.59)
[2018-08-18 07:42] LABS: AGAP 11; ALB/GLOB RATIO 1.1; ALBUMIN 3.1 g/dL (3.5-5.0); ALKALINE PHOSPHATASE 107 U/L (32-122); BUN 4 mg/dL (8-22); CALCIUM 8.2 mg/dL (8.8-10.2); CHLORIDE 102 mmol/L (98-107); COSMO 276; CREATININE 0.7 mg/dL (0.7-1.2); ESTIMATED GFR > 60; GLUCOSE 86 mg/dL (70-104); GOT 15 U/L (10-34); GPT 5 U/L (10-44); POTASSIUM 3.7 mmol/L (3.5-5.1); SODIUM 140 mmol/L (136-145); TCO2 27 mmol/L (25-35); TOTAL BILIRUBIN 0.59 mg/dL (0.20-1.00); TOTAL PROTEIN 5.9 g/dL (6.3-8.3)
[2018-08-18] MEDS: DUONEB (A & A) INH SCH ×3 (08:23→21:17)
[2018-08-18] MEDS: CYMBALTA PO SCH (11:32)
[2018-08-18] MEDS: LOVENOX SUBQ SCH (11:33)
[2018-08-18] MEDS: VITAMIN B-12 PO SCH (11:33)
[2018-08-18] MEDS: LYRICA PO SCH ×2 (11:34→20:32)
[2018-08-18] MEDS: MIRALAX PO SCH (11:34)
[2018-08-18] MEDS: MS CONTIN PO SCH ×2 (11:34→20:32)
[2018-08-18] MEDS ORDERED: DIPRIVAN 1% ONE (13:06)
[2018-08-18] MEDS ORDERED: FENTANYL ONE (13:26)
[2018-08-18] MEDS ORDERED: MOVANTIK PO ONE (14:00)
[2018-08-18] MEDS: NS 1,000 ML IV SCH (15:20)
[2018-08-18] MEDS: FOLIC ACID PO SCH (20:32)
[2018-08-18] MEDS: PRAVACHOL PO SCH (20:32)
[2018-08-18] MEDS: FLOMAX PO SCH (20:32)
--- NOTE | 2018-08-18 21:11 | OPERATIVE NOTE ---
PROCEDURE DATE: 08/18/2018 PROCEDURE: Colonoscopy. PREOPERATIVE DIAGNOSIS: Abdominal pain, nausea, vomiting, abnormal CT scan suggestive of stricture. POSTOPERATIVE DIAGNOSIS: Diverticulosis, otherwise redundant rather roomy colon. HISTORY: This is an 83-year-old gentleman admitted to the hospital after he presented to Dr. Sánchez's office with a complaint of abdominal pain, nausea, and vomiting. He has not been able to eat and has lost weight. A CT scan of the abdomen and pelvis was done and there was question of possible stricture at the transverse colon. Colonoscopy was done for diagnostic purposes. DESCRIPTION OF PROCEDURE: Informed consent was obtained from the patient. The procedure, risks, benefits, alternatives were explained in layman's terms. He understood. All his pertinent questions were answered. Patient was brought to the endoscopy unit and was premedicated as per Anesthesia. After adequate sedation, while he was lying in left lateral position, digital rectal exam was performed which was normal. Colonoscope was then introduced into the rectum and advanced under direct vision through the parts of colon, all the way up to the cecum. The cecum was identified by ileocecal valve and appendiceal orifice. Scope was then withdrawn, paying careful attention to details. Preparation was fair. There was a small quantity of liquid stool present scattered throughout the colon, which was easily suctioned out after irrigation. The visualized portion of the colon revealed scattered diverticulosis, especially on the left side, but no evidence of diverticulitis or diverticular bleeding. Of note, the colon appeared to be roomy and large and was redundant. I was able to advance the scope up to the cecum only by counter pressure onto the anterior abdominal wall. A retroflexed view of rectum revealed no pathology. I did not see any evidence of stricture or colitis in the colon. Scope was then removed. Patient tolerated procedure well. No complications noted. Patient was then transferred to the recovery area in a stable condition. IMPRESSION: Diverticulosis, otherwise redundant roomy colon. RECOMMENDATIONS: Patient needs to be on laxatives. It would be appropriate to continue him on combination of MiraLAX and emily Colace, but I would add Movantik 12.5/25 mg p.o. every day to offset the effect of MS Contin that he has been on for his chronic pain. I have reassured him and advised him to continue current treatment, and follow up with me at the office after discharge. cc: MD Angel Garcia MD
--- NOTE | 2018-08-19 01:48 | PROGRESS NOTE ---
DATE: 08/18/2018 SUBJECTIVE: Upon my arrival this morning, patient was resting in bed. He denied significant symptoms including nausea, vomiting, abdominal pain, cough, congestion, or palpitations. The patient was taken for a colonoscopy. Colonoscopy revealed a redundant colon. Laxatives were recommended. This evening, patient states he is doing reasonably well. He does note having some abdominal discomfort and nausea after his colonoscopy. He denies fevers or chills. OBJECTIVE: Vital signs: T-max 98.1 degrees, heart rate 68-84, respirations 14-20, blood pressure 131 to 155/69 to 79. General: Chronically ill appearing, no acute distress. Cardiovascular: Regular rate and rhythm. No significant murmurs, rubs, or gallops. Pulmonary: Crackles at bilateral bases right greater than left. Adequate air movement. Abdomen: Soft, nontender, nondistended. Positive bowel sounds. Extremities: Moves all extremities well. No significant clubbing, cyanosis, or edema. Dermatologic: Evaluation reveals no evidence of rash. LABORATORY DATA: White blood cell count 6.94, hemoglobin 11.3, hematocrit 33.7, platelet count 324,000. Sodium 140, potassium 3.7, chloride 102, bicarbonate 27, BUN 4, creatinine 0.7, glucose 86, calcium 8.2, total bilirubin 0.59, total protein 5.9, albumin 3.1, alkaline phosphatase 107, AST 15, ALT 5. ASSESSMENT AND PLAN: 1. Colitis with possible stricture formation. This was noted per CT scan. Colonoscopy revealed no definitive pathology. We will continue Zosyn for now. We will discuss laxative agents with Dr. Bates. 2. Nausea. While hospitalized, patient has achieved improvement. After colonoscopy, he does have some increase in symptoms. We will continue supportive care with antiemetic agents. 3. Dehydration. The patient has achieved improvement with IV fluids. We will continue this. 4. Profound weakness. The patient has noted considerable improvement while hospitalized. We will continue to follow this as well. We will encourage activity. 5. Anorexia. Patient has tolerated a clear liquid diet while hospitalized. We will advance diet as tolerated. 6. Chronic anemia. Patient's hemoglobin hematocrit remain stable. We will follow this as well. 7. Reflux disease. Symptoms are reasonably controlled with pantoprazole therapy. 8. Hyperlipidemia. Patient will be continued on pravastatin therapy. 9. Peripheral neuropathy. Symptoms are reasonably controlled with MS Contin. 10. Chronic hypoxia. We will continue patient on oxygen per protocol. 11. Bronchiectasis. Patient has longstanding disease. Symptoms are currently stable on his home regimen. DISPOSITION: At this point, patient continues to require intermediate care in a hospital setting. We will plan discharge home once appropriate. cc: Angel Reyna MD
[2018-08-19] MEDS: NS 1,000 ML IV SCH (02:48)
[2018-08-19] MEDS: ZOSYN 3.375 GM in NS 50 ML IV SCH ×3 (02:48→11:28)
[2018-08-19] MEDS: PRILOSEC PO SCH (06:23)
[2018-08-19] MEDS: MS CONTIN PO SCH ×2 (07:32→11:24)
[2018-08-19] MEDS: DUONEB (A & A) INH SCH ×3 (07:38→15:27)
[2018-08-19] MEDS: LYRICA PO SCH (08:39)
[2018-08-19] MEDS: CYMBALTA PO SCH (08:40)
[2018-08-19] MEDS: LOVENOX SUBQ SCH (08:40)
[2018-08-19] MEDS: VITAMIN B-12 PO SCH (08:40)
[2018-08-19] MEDS: MIRALAX PO SCH ×2 (08:40→08:41)
[2018-08-19] MEDS ORDERED: MOVANTIK PO ONE (11:01)
[2018-08-19 16:30] VITALS: BP 101/53
--- NOTE | 2018-08-19 18:05 | GASTROENTEROLOGY PROGRESS NOTE ---
DATE: 08/19/2018 SUBJECTIVE: The patient states he is feeling better. He was resting with eyes closed at the time of my evaluation, and he roused easily, in no acute distress. He currently denies pain. He is hoping to go home today. ASSESSMENT AND PLAN: The patient had colonoscopy on 08/18/2018. Findings showed diverticulosis, otherwise redundant colon. He was recommended to continue laxative. Dr. Bates had recommended a combination of MiraLAX and Brielle-Colace, but also adding Movantik daily for opioid-induced constipation. I have sent the prescription to his pharmacy, [facility]. It does require a prior authorization. We will work on that. I have left some samples of the medication at our office if the patient wants to come by and get samples. On looking back at his records, I believe we have sent Movantik for him before and it stated it was too expensive. Depending on the cost and approval, we may have to change that to a different medication. Recommend the patient follow back in our office after discharge. Further plans to be made according to his progress. I have discussed this case with Dr. Bates. Dictated by AMRITA Hernadez for Neil Bates MD cc: AMRITA Bay MD Scott A. Matthews, MD
--- NOTE | 2018-08-20 00:34 | DISCHARGE SUMMARY ---
ADMISSION DATE: 08/15/2018 DISCHARGE DATE: 08/19/2018 ADMISSION DIAGNOSES:: 1. Nausea. 2. Fatigue. DISCHARGE DIAGNOSES: 1. Possible colitis per CT scan with negative colonoscopy. 2. Nausea, improved. 3. Dehydration, improved. 4. Profound weakness, improved. 5. Anorexia, improved. 6. Chronic anemia, present on arrival. 7. Reflux disease, present on arrival. 8. Hyperlipidemia, present on arrival. 9. Peripheral neuropathy, present on arrival. 10. Chronic hypoxia, present on arrival. 11. Bronchiectasis, present on arrival. CONSULTATIONS: Dr. Bates with Gastroenterology was consulted for further evaluation and management of intractable nausea and associated colitis per CT scan. PROCEDURES: 1. CT scan of the abdomen and pelvis was performed on 08/15/2018 which revealed moderately gas distended transverse colon with focal narrowing in its midportion and suggestion of mild wall thickening. A partial stricture cannot be excluded. Bibasilar bronchiectasis that is worse on the left with tree-in-bud opacities indicating bronchiolitis of the left lung base that is similar to previous study. 2. Chest x-ray was performed on 08/15/2018 which revealed gaseous distention of the colon. No definite acute chest pathology. 3. Colonoscopy was performed on 08/18/2018 which revealed diverticulosis, otherwise redundant roomy colon. HISTORY AND PHYSICAL EXAMINATION: See admit note. PHYSICAL EXAMINATION PRIOR TO DISCHARGE: Temperature 98.5 degrees, heart rate 87, respirations 18, blood pressure is 101/53. General: Chronically ill appearing, no acute distress. Cardiovascular: Regular rate and rhythm. No significant murmurs, rubs, or gallops. Pulmonary: Crackles at bilateral bases left greater than right. Abdomen: Soft, nontender, nondistended. Positive bowel sounds. Extremities: Moves all extremities well. No significant clubbing, cyanosis, or edema. Dermatologic: Evaluation reveals no evidence of rash. LABORATORY DATA: Prior to discharge: None. HOSPITAL COURSE: Patient was admitted as per history and physical examination. Hospital course per condition is as follows. 1. Possible colitis per CT scan-upon admission, patient was noted to have intractable nausea with abdominal discomfort. CT scan suggested a possible colitis with stricture formation. The patient was placed on IV fluid. Zosyn therapy was initiated. With the addition of these agents, his condition quickly improved. The patient was seen by Dr. Bates. Colonoscopy was scheduled and was performed as described above. While hospitalized, patient achieved near full resolution of his symptoms. At time of discharge, he was tolerating p.o. He denies significant nausea and abdominal discomfort. Patient will be discharged home with the addition of Movantik secondary to his redundant colon. We will follow his clinical course very closely. As his colonoscopy revealed no significant pathology, we will hold off on further antibiotic intervention. 2. Nausea-this likely was a consequence of his possible colitis as well as dehydration. With treatment of each, his symptoms improved. At time of discharge, he was tolerating p.o. We will continue as needed Phenergan as an outpatient. 3. Dehydration-the patient was treated with aggressive but cautious hydration while hospitalized. At time of discharge, he was euvolemic. 4. Profound weakness-upon admission, patient was unable to stand independently. With IV fluids and treatment of his underlying colitis patient did achieve improvement. At time of discharge, patient was able to ambulate independently. We will follow this as an outpatient as well. 5. Anorexia-this likely was a consequence of his abdominal pathology and dehydration. With treatment of each, his condition improved. As above, he was tolerating p.o. at time of discharge. 6. Chronic anemia-patient's hemoglobin, hematocrit remain reasonably stable while hospitalized. 7. Reflux disease-patient was continued on pantoprazole therapy. His symptoms remained reasonably controlled. 8. Hyperlipidemia-patient was continued on pravastatin while hospitalized. We will continue to follow this as an outpatient. 9. Peripheral neuropathy-the patient's symptoms are reasonably controlled with MS Contin. This was continued as an inpatient. 10. Chronic hypoxia-patient was treated with oxygen per protocol while hospitalized. Oxygenation remains stable. We will continue oxygen as needed at home. 11. Bronchiectasis-the patient has longstanding disease. CT scan suggested the presence of bronchiectasis, but stability. We will continue to follow this as well. DISCHARGE CONDITION: Stable. DISPOSITION: Discharged to home. MEDICATIONS: 1. DuoNeb 3 times daily. 2. Vitamin B12 1000 mcg daily. 3. Duloxetine 60 mg daily. 4. Fexofenadine 180 mg daily as needed. 5. Folic acid 1 mg at bedtime. 6. Hydroxyzine 25 mg 3 times daily as needed for itching. 7. Morphine ER 30 mg every 12 hours. 8. Movantik 25 mg daily with breakfast. 9. Omeprazole 40 mg daily. 10. MiraLAX 17 g in 8 ounces of juice daily. 11. Pravastatin 40 mg at bedtime. 12. Lyrica 200 mg twice daily. 13. Senna-S 1 tablet twice daily as needed. 14. Tamsulosin 0.4 mg at bedtime. 15. Acetaminophen 650 mg every 6 hours as needed. 16. Phenergan 25 mg every 6 hours as needed. FOLLOWUP: The patient is to follow up with me in approximately 1 to 2 weeks. Patient is a follow up with Dr. Bates as arranged. cc: Angel Reyna MD
[2018-08-20] MEDS ORDERED: MOVANTIK PO SCH (07:00)
== END 2018-08-19 18:19 | disposition home or self-care (01) | DRG 392 ==
LOC: DIRADM 13:42 → 3N 14:06
PROVIDERS: ADMIT Internal Medicine; ATTEND Internal Medicine
CPT/HCPCS: 71020; 71046; 74176; 80053; 82948; 85025; 87040; 94640; 94761; 97163; A9270; J1650; J2405; J2543; J3010; J7030; XXXXX

== ENCOUNTER 2018-10-18 17:41 | Inpatient (IN) ==
[2018-10-18] MEDS ORDERED: TYLENOL PO PRN ×2 (20:04→20:07)
[2018-10-18] MEDS ORDERED: PERICOLACE PO PRN (20:07)
[2018-10-18] MEDS ORDERED: ALLEGRA PO PRN (20:07)
[2018-10-18] MEDS ORDERED: SODIUM CHLORIDE 0.9% INJ PRN (20:08)
[2018-10-18] MEDS: LOVENOX SUBQ SCH (20:44)
[2018-10-18] MEDS: PHENERGAN IV PRN (20:44)
[2018-10-18] MEDS: NS 1,000 ML IV SCH (20:44)
[2018-10-18 21:09] LABS: BASO# 0.03 X1000 (0.0-0.2); BASO% 0.3 % (0.0-0.8); EOS# 0.31 X1000 (0.0-0.7); EOS% 2.7 % (0.0-10.0); HEMATOCRIT 40.1 % (42.0-52.0); HEMOGLOBIN 13.5 g/dL (14.0-18.0); IMM GRAN# 0.05 X1000 (0.0-0.04); IMM GRAN% 0.4 % (0.0-0.5); LYMPH# 1.58 X1000 (1.2-3.4); LYMPH% 13.6 % (20.5-51.1); MCH 26.9 PG (27-31); MCHC 33.7 g/dL (33-37); MCV 79.9 FL (81-99); MONO# 1.12 X1000 (0.11-0.59); MONO% 9.7 % (1.7-9.3); MPV 8.7 FL (7.4-10.4); NEUT# 8.51 X1000 (1.4-6.5); NEUT% 73.3 % (42.2-75.2); PLT 542 X1000 (130-400); RBC 5.02 XMIL (4.7-6.1); RDW 14.9 % (11.5-14.5)
[2018-10-18 21:31] LABS: AGAP 16; ALB/GLOB RATIO 1.2; ALBUMIN 3.3 g/dL (3.5-5.0); ALKALINE PHOSPHATASE 102 U/L (32-122); AMYLASE 44 U/L (20-200); BUN 20 mg/dL (8-22); CALCIUM 8.4 mg/dL (8.8-10.2); CHLORIDE 98 mmol/L (98-107); COSMO 279; CREATININE 0.8 mg/dL (0.7-1.2); ESTIMATED GFR > 60; GLUCOSE 108 mg/dL (70-104); GOT 14 U/L (10-34); GPT 6 U/L (10-44); LIPASE 13 U/L (13-60); POTASSIUM 4.4 mmol/L (3.5-5.1); SODIUM 138 mmol/L (136-145); TCO2 24 mmol/L (25-35); TOTAL BILIRUBIN 0.33 mg/dL (0.20-1.00)
--- NOTE | 2018-10-18 21:31 | Diag Imaging Result Doc PS360 ---
EXAM: CHEST-2 VIEWS 10/18/2018 HISTORY: congestion TECHNIQUE: PA and lateral chest COMMENT: There is volume loss and opacity present in the right upper lobe which was also present on 10/09/2018 but is definitely worse than on 08/15/2018. There is probable COPD. IMPRESSION: Persistent volume loss and opacification of the right upper lobe. The possibility of endobronchial obstruction in the right upper lobe bronchus with postobstructive pneumonia cannot be excluded and further evaluation is recommended. Electronically signed by Kyle Vigil 10/18/2018 9:29 PM
--- NOTE | 2018-10-18 21:35 | Diag Imaging Result Doc PS360 ---
EXAM: ABDOMEN FLAT/UPRIGHT 10/18/2018 HISTORY: Abdominal pain TECHNIQUE: Flat and upright abdomen COMMENT: There is gas and stool throughout the colon. There is gas throughout multiple small bowel loops which are slightly distended. The stomach is not particularly distended. There are surgical clips in the right upper quadrant and there has been kyphoplasty at T12. There are postsurgical changes in the right femur and acetabulum. IMPRESSION: Constipation and ileus. Electronically signed by Kyle Vigil 10/18/2018 9:33 PM
[2018-10-18] MEDS: DUONEB (A & A) INH SCH (21:37)
--- NOTE | 2018-10-18 22:24 | HISTORY AND PHYSICAL ---
PRIMARY CARE PHYSICIAN: Dr. Angel Reyna. CHIEF COMPLAINT: Abdominal discomfort, intractable nausea, profound weakness. HISTORY OF PRESENT ILLNESS: An 83-year-old white male with a complicated past medical history presents for evaluation of above-mentioned symptoms. Current history of present illness began on 10/09/2018. At that time, patient presented to [facility] with abdominal pain. Full evaluation was pursued. The patient was found to have a right upper lobe pneumonia per chest x- ray. CT scan of the abdomen and pelvis suggested underlying constipation. The patient was admitted and placed on IV antibiotics. The patient was treated with aggressive bowel intervention. Throughout hospitalization, patient's overall condition slowly improved. The patient ultimately was discharged home on 10/13/2018. Since discharge patient states he initially did reasonably well. Unfortunately, this proved to be short lived. Yesterday patient developed recurrent abdominal pain, nausea and chills. P.o. intake was noted to decrease considerably. Because of his rapid decline in his overall condition, the patient and his presented to the office this evening. Examination was significant for decompensation. Patient will be admitted to the hospital for full evaluation and management. Of note, patient's last bowel movement was this morning. He has been treated with levofloxacin therapy for underlying pneumonia as an outpatient. He denies significant cough, congestion, or shortness of breath. He has had no evidence of fevers, chills, hematochezia, melena, dysuria, hematuria, or pyuria. PAST MEDICAL HISTORY: 1. Multiple actinic keratoses and seborrheic keratoses. 2. Acute cholecystitis status post laparoscopic cholecystectomy in 1984. 3. History of recurrent pancreatitis. 4. Folic acid deficiency. 5. Vitamin B12 deficiency. 6. Anxiety. 7. Benign prostatic hypertrophy. 8. History of bronchiectasis. 9. Right bundle branch block. 10. Dementia. 11. Depression. 12. Diabetes. 13. Insomnia. 14. History of diverticulitis diagnosed in the . 15. Reflux disease. 16. Hypertension. 17. Hypertriglyceridemia. 18. History of T12 compression fracture in 2010. 19. History of a right inguinal hernia status post surgical intervention in 2015. 20. Hyperlipidemia. 21. Chronic hypoxemia. 22. Irritable bowel syndrome, constipation predominant. 23. [*]Back pain. 24. History of tobacco use. 25. Peripheral neuropathy requiring chronic pain medication intervention. 26. History of lung cancer status post XRT. 27. History of open appendectomy in 1969. CURRENT MEDICATIONS: 1. Acetaminophen 650 mg every 6 hours as needed. 2. DuoNeb 3 times daily. 3. Vitamin B12 1000 mcg daily. 4. Cymbalta 60 mg daily. 5. Mildred 180 mg daily as needed. 6. Folic acid 1 mg at bedtime. 7. Hydroxyzine 25 mg 3 times daily as needed. 8. Morphine ER 30 mg q.12 hours. 9. Movantik 25 mg with breakfast. 10. Omeprazole 40 mg daily. 11. Pravastatin 40 mg at bedtime. 12. Lyrica 200 mg twice daily. 13. Brielle-Colace 1 tablet twice daily as needed. 14. Flomax 0.4 mg at bedtime. ALLERGIES: No known drug allergies. SOCIAL HISTORY: Patient has smoked as many as 2 packs of cigarettes per day starting at age 16. Unfortunately, he continues to smoke intermittently. He denies alcohol or illicit drug use. 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 He enjoys watching sports. He exercises by walking and riding a bicycle. FAMILY HISTORY: Patient's father passed at age 86 secondary to complications of a stroke. Patient's mother passed at age 92 secondary to complications of leukemia. REVIEW OF SYSTEMS: A 12 point review of systems was performed. Pertinent positives and negatives noted in history present illness. PHYSICAL EXAMINATION: VITAL SIGNS: Temperature 97.6 degrees, heart rate 83, respirations 20, blood pressure is 112/56. GENERAL: Chronically ill-appearing, no acute distress. HEENT: Normocephalic, atraumatic. Pupils equal, round, react to light. Extraocular muscles intact. Sclerae anicteric. [place] conjunctivae. Oral and nasopharynx clear without exudate. NECK: Supple. No lymphadenopathy. No thyromegaly. No bruits auscultated. CARDIOVASCULAR: Regular rate and rhythm. No significant murmurs, rubs, or gallops. PULMONARY: Crackles at bilateral bases. Adequate air movement. ABDOMEN: Soft, diffusely tender, nondistended, positive bowel sounds. EXTREMITIES: Moves all extremities well. No significant clubbing, cyanosis, or edema. NEUROLOGIC: Cranial nerves 2-12 grossly intact. Motor and sensory grossly intact. PSYCHOLOGIC: The patient is anxious. LABORATORY DATA: White blood cell count 11.60, hemoglobin 13.5, hematocrit 40.1, platelet count 542,000. Sodium 138, potassium 4.4, chloride 98, bicarb 24, BUN 20, creatinine 0.8, glucose 108, calcium 8.4, total bilirubin 0.33, total protein 6.0, albumin 3.3, alkaline phosphatase 102, AST 14, ALT 6. Chest x-ray revealed a persistent volume loss and opacification of the right upper lobe. The possibility of endobronchial obstruction in the right upper lobe bronchus with postobstructive pneumonia cannot be excluded and further evaluation is recommended. Flat and upright of the abdomen revealed constipation and ileus. ASSESSMENT AND PLAN: An 83-year-old white male with a complicated past medical history presents for evaluation of intractable nausea, abdominal pain, and profound weakness. Examination thus far has revealed a probable persistent pneumonia in the right upper lobe possibly secondary to postobstructive nature, leukocytosis, and significant constipation with ileus. The patient will be admitted to the hospital for full evaluation and management of this condition. 1. Admit to General Medicine. 2. Right upper lobe pneumonia, possible post obstructive in etiology-we will initiate Rocephin and doxycycline therapy as he has been treated with levofloxacin as an outpatient. We will plan a CT scan of the chest to further differentiate patient's anatomy and rule out post obstructive pneumonia. We will continue patient on DuoNeb. We will encourage incentive spirometry q.1 hour while awake. 3. Intractable abdominal pain with associated nausea likely secondary to ileus/constipation- unfortunately, patient has persistent disease. Once his energy level has improved, we will plan to initiate a bowel prep to evacuate current constipation. The patient has been treated with multiple medications, although this has proven ineffective. We will remain aware that patient may indeed have a ileus [*] most likely source is that pain or underlying pneumonia. We will remain aware. At this point, he is passing flatus. He does not have intractable vomiting. 4. Leukocytosis. This likely is a consequence of patient's pneumonia. We will remain aware. 5. Thrombocytosis-patient platelet count is 542,000. He has no evidence of thrombosis. Once again, we will remain aware. 6. Reflux disease-we will continue patient on omeprazole therapy. 7. Hypertriglyceridemia/hyperlipidemia-we will continue patient on pravastatin therapy. 8. Peripheral neuropathy-unfortunately, patient has significant disease. We will continue patient on his home medication regimen. 9. Disposition-at this point, patient continues to require penitentiary care in a hospital setting. We will plan discharge home once appropriate. cc: Angel Reyna MD
[2018-10-18] MEDS: ATARAX PO PRN (22:43)
[2018-10-18] MEDS: FOLIC ACID PO SCH (23:10)
[2018-10-18] MEDS: ROCEPHIN 1 GM in NS 50 ML IV SCH (23:10)
[2018-10-18] MEDS: LYRICA PO SCH (23:11)
[2018-10-18] MEDS: MS CONTIN PO SCH (23:11)
[2018-10-18] MEDS: FLOMAX PO SCH (23:11)
[2018-10-18] MEDS: PRAVACHOL PO SCH (23:11)
[2018-10-19] MEDS: BENADRYL CREAM TOP PRN (00:08)
[2018-10-19] MEDS: PHENERGAN IV PRN ×3 (00:08→22:15)
[2018-10-19] MEDS: DOXYCYCLINE 100 MG in NS 250 ML IV SCH ×3 (00:08→22:19)
[2018-10-19] MEDS: ATARAX PO PRN ×3 (00:59→22:16)
[2018-10-19] MEDS: MOVANTIK PO SCH ×2 (04:03→06:32)
[2018-10-19] MEDS: DUONEB (A & A) INH SCH ×4 (08:17→23:53)
[2018-10-19] MEDS: LYRICA PO SCH ×2 (08:47→22:19)
[2018-10-19] MEDS: PRILOSEC PO SCH (08:47)
[2018-10-19] MEDS: CYMBALTA PO SCH (08:47)
[2018-10-19] MEDS: VITAMIN B-12 PO SCH (08:48)
[2018-10-19] MEDS: MS CONTIN PO SCH ×2 (08:48→22:16)
[2018-10-19] MEDS ORDERED: LEVAQUIN PO SCH (09:00)
--- NOTE | 2018-10-19 10:52 | Diag Imaging Result Doc PS360 ---
EXAM: CT THORAX W/CONTRAST 10/19/2018 HISTORY: Pneumonia, possibly post-obstructive TECHNIQUE: This exam was performed using automated exposure control, adjustment of mA or kV according to patient size, and/or use of iterative reconstruction technique. COMMENT: There are no abnormal fluid collections. There is some atherosclerotic calcification and noncalcified plaque in the thoracic aorta. There is no evidence of dissection or aneurysm. There are no apparent filling defects in the pulmonary arteries. There is no evidence of significant adenopathy. There are coronary calcifications including in the left anterior descending artery. There is peribronchial thickening and some mild bronchiectasis in the left lower lobe. This is worse than on 05/25/2018. The right upper lobe bronchus is not obstructed however there is some bronchial thickening and ill-defined opacity throughout much of the right upper lobe particularly posteriorly. These findings are much worse than on the previous study. There is some platelike opacity in the right upper lobe. IMPRESSION: Worsening pneumonia on the right upper lobe. The possibility of an atypical organism or even neoplasm cannot be excluded. Worsened bronchopneumonia left lower lobe. Electronically signed by Kyle Vigil 10/19/2018 10:50 AM
[2018-10-19] MEDS ORDERED: GOLYTELY PO ONE (11:31)
--- NOTE | 2018-10-19 13:23 | PROGRESS NOTE ---
DATE: 10/19/2018 SUBJECTIVE: The patient was admitted yesterday with abdominal discomfort, intractable nausea, and profound weakness. Full evaluation was pursued. Chest x-ray suggested persistent volume loss and opacification of the right upper lobe. The possibility of an endobronchial obstruction could not be ruled out. A flat and upright of the abdomen suggested constipation and an ileus. The patient was started on IV antibiotics including Rocephin and doxycycline therapy. Nausea was treated with Phenergan. IV fluids were initiated. Upon my arrival this morning, patient stated he had some improvement in his overall condition. His nausea had decreased. His energy level was slightly improved. He noted to have had a bowel movement this morning. Because of the abnormal findings of the chest x-ray, a CT scan of the chest was performed. This demonstrated worsening pneumonia in the right upper lobe. The possibility of an atypical organism or even neoplasm could not be excluded. Worsened bronchopneumonia in the left lower lobe was also identified. The patient denies current fevers, chills, shortness of breath, cough, or congestion above baseline. OBJECTIVE: Vital signs: T-max 98 degrees, heart rate 70 to 96, respirations 16 to 42, blood pressure 112 to 143 over 56 to 74. General: Chronically ill-appearing, no acute distress. Cardiovascular: Regular rate and rhythm. No significant murmurs, rubs, or gallops. Pulmonary: Crackles at bilateral bases. Adequate air movement. Abdomen: Soft, diffusely tender. No rebound or guarding. Positive bowel sounds. Extremities: Moves all extremities well. No significant clubbing, cyanosis, or edema. Dermatologic: No evidence of rash. LABORATORY DATA: None. ASSESSMENT AND PLAN: 1. Right upper lobe pneumonia/left lower lobe bronchopneumonia - this was noted per CT scan. In the setting of previous lung cancer, I cannot fully rule out a recurrence. We will consult Dr. Loera for further evaluation and management. We will continue bronchodilators. We will continue current IV antibiotics including Rocephin and doxycycline therapy. Sputum cultures and blood cultures have been ordered. We will encourage incentive spirometry and aspiration precautions. 2. Intractable abdominal pain with associated nausea. Likely secondary to ileus/constipation - the patient is having a fairly routine bowel movements, but does not appear to be evacuating his colon efficiently. We will provide patient GoLYTELY today. I anticipate this will assist in completely clearing is colon, thus allowing his current medical regimen to be more effective. We will follow this as well. We will remain aware that narcotic pain intervention is likely playing a role. 3. Leukocytosis - this likely is a consequence of his pneumonia. We will treat as above. 4. Thrombocytosis - I suspect this also is reactive secondary to his chronic pulmonary infection. He has no evidence of thrombosis. 5. Reflux disease - we will continue omeprazole and aspiration precautions. 6. Hypertriglyceridemia/hyperlipidemia - we will continue patient on pravastatin therapy. 7. Peripheral neuropathy - patient has longstanding, significant disease. He is treated with narcotic pain intervention. While I would prefer for him to be off of his current regimen, we are unable to discontinue this at this point secondary to his prolonged use. We will continue his home medications. 8. Profound weakness - once again, this likely is multifactorial. We will treat conditions as above. We will determine if physical therapy is appropriate. 9. Disposition - at this point, patient continues to require long-term care in a hospital setting. We will plan discharge home once appropriate. cc: Angel Reyna MD
[2018-10-19] MEDS: NS 1,000 ML IV SCH (17:02)
[2018-10-19] MEDS: LOVENOX SUBQ SCH (22:15)
[2018-10-19] MEDS: FOLIC ACID PO SCH (22:16)
[2018-10-19] MEDS: ROCEPHIN 1 GM in NS 50 ML IV SCH (22:16)
[2018-10-19] MEDS: PRAVACHOL PO SCH (22:16)
[2018-10-19] MEDS: FLOMAX PO SCH (22:17)
--- NOTE | 2018-10-19 23:42 | PULMONOLOGY CONSULTATION ---
DATE: 10/19/2018 REQUESTING PHYSICIAN: Dr. Angel Reyna. REASON FOR CONSULTATION: Pneumonia with history of lung cancer. HISTORY OF PRESENT ILLNESS: Mr. Silvestre is an 83-year-old white male with a greater than 50-pack- year history for tobacco, severe tobacco use, chronic pain syndrome, osteoporosis, chronic hypoxemic respiratory failure, with severe anxiety with component of depression disorder, who was last seen in my office 10/18/2017 after he was diagnosed with an early stage adenocarcinoma. Due to patient's anxiety, compression fractures, poor performance status, it was felt he would not tolerate a major thoracic surgery and he was referred to Dr. Katlyn Arguello to be evaluated for SBRT. The patient has completed this treatment, by his report, although I do not have details of that treatment. He reports his last PET scan was negative for recurrence of disease and he is scheduled for another scan in November. The patient has had difficulties with severe constipation with intractable abdominal pain and nausea, and was readmitted to the hospital 10/18/2018, after being discharged 5 days earlier. The patient had a CT scan performed today which reveals bronchiectasis, most prominent in the lower lobes with increased infiltrates in the right upper lobe. The patient does report some fevers along with increased cough and yellow sputum production. PAST MEDICAL HISTORY: 1. Mild chronic obstructive pulmonary disease. 2. Severe anxiety disorder. 3. Osteoporosis with compression fractures. 4. Diabetes mellitus. 5. Chronic hypoxemic respiratory failure. 6. Recurrent severe constipation. 7. Chronic pain syndrome. 8. Noncompliance, as outlined above. SOCIAL HISTORY: Ongoing tobacco use with a greater than [id number] history for tobacco. He denies alcohol use. FAMILY HISTORY: Notable for a mother who had leukemia and from sepsis. Father with stroke. Two sisters with ovarian cancer. One brother from suicide. REVIEW OF SYSTEMS: Notable for nausea, abdominal pain, constipation, cough, and sputum production. PHYSICAL EXAMINATION: General: Reveals a thin, chronically ill-appearing male, resting comfortably and in no distress. Vital signs: He has been afebrile for the last 24 hours. Blood pressure 141/92, heart rate 87, respiratory rate 16, oxygen saturation 97 percent on 3 L per nasal cannula. HEENT: Pupils are equal and reactive. Oropharynx is clear. Neck: Supple. Chest: Reveals scattered rhonchi bilaterally. Cardiac: S1, S2. Abdomen: Soft with mild increased tympany. Extremities: Without edema. LABORATORIES: CT scan of the thorax reveals bronchiectasis in the lung bases, which is more prominent in the left lower lobe. He has increased ground-glass changes in the right upper lobe, which is more prominent than on 04/2018. IMPRESSION: An 83-year-old with 1. Exacerbation of bronchiectasis. 2. Radiation pneumonitis, right upper lobe, without evidence of recurrence of lung cancer. 3. Ongoing tobacco use. 4. Chronic obstructive pulmonary disease. 5. Chronic hypoxemic respiratory failure. 6. Constipation. DISCUSSION: An 83-year-old with problems outlined above. The changes in the right upper lobe appear to be most consistent with post therapeutic changes. I will check a CEA level, but this may be slightly elevated with his ongoing bowel complaints and ongoing tobacco use. At this juncture, would treat him for an exacerbation of bronchiectasis. Will attempt to collect a sputum. Would consider transitioning him from ceftriaxone to more extended antipseudomonal agent, such as cefepime. PLAN: 1. Increase Levaquin to extend antibiotic range. We will check QTc on 3 consecutive days given the use of his other medications which may extend his QTc. 2. Continue bronchial hygiene. We will increase nebulizers to q.4 hours and we will add Mucomyst. 3. Smoking cessation will be strongly encouraged. 4. Additional recommendations pending hospital course. cc: MD Angel Mayes MD
[2018-10-20 06:24] LABS: BASO# 0.02 X1000 (0.0-0.2); BASO% 0.3 % (0.0-0.8); EOS# 0.58 X1000 (0.0-0.7); EOS% 9.1 % (0.0-10.0); HEMATOCRIT 32.2 % (42.0-52.0); HEMOGLOBIN 10.4 g/dL (14.0-18.0); LYMPH% 17.2 % (20.5-51.1); MCH 26.8 PG (27-31); MCHC 32.3 g/dL (33-37); MONO# 0.95 X1000 (0.11-0.59); MONO% 14.9 % (1.7-9.3); NEUT# 3.74 X1000 (1.4-6.5); NEUT% 58.5 % (42.2-75.2); PLT 429 X1000 (130-400); RBC 3.88 XMIL (4.7-6.1); RDW 14.4 % (11.5-14.5); WBC 6.39 X1000 (4.8-10.8)
[2018-10-20 06:36] LABS: AGAP 10; ALBUMIN 2.9 g/dL (3.5-5.0); ALKALINE PHOSPHATASE 88 U/L (32-122); BUN 11 mg/dL (8-22); CALCIUM 8.1 mg/dL (8.8-10.2); CHLORIDE 100 mmol/L (98-107); COSMO 266; CREATININE 0.7 mg/dL (0.7-1.2); ESTIMATED GFR > 60; GLUCOSE 103 mg/dL (70-104); GOT 13 U/L (10-34); GPT 6 U/L (10-44); POTASSIUM 3.7 mmol/L (3.5-5.1); SODIUM 133 mmol/L (136-145); TCO2 23 mmol/L (25-35); TOTAL BILIRUBIN 0.22 mg/dL (0.20-1.00); TOTAL PROTEIN 5.8 g/dL (6.3-8.3)
[2018-10-20] MEDS: MOVANTIK PO SCH (06:55)
--- NOTE | 2018-10-20 07:31 | EKG Report ---
Test Performed on : 10/20/2018 06:59:31 AM Test Reason : medications effecting QTc Blood Pressure : / mmHG Vent. Rate : 072 BPM Atrial Rate : 072 BPM P-R Int : 170 ms QRS Dur : 138 ms QT Int : 458 ms P-R-T Axes : 061 -35 020 degrees QTc Int : 501 ms Sinus rhythm. with premature atrial complexes. Left axis deviation Right bundle branch block Moderate voltage criteria for LVH, may be normal variant Abnormal ECG When compared with ECG of 31-JUL-2018 12:38, premature atrial complexes. are now present Left anterior fascicular block is no longer present Confirmed by Angel Reyna MD ([id number]) on 10/22/2018 8:54:38 PM
[2018-10-20] MEDS: DUONEB (A & A) INH SCH ×5 (07:48→22:57)
[2018-10-20] MEDS: MUCOMYST 20% INH SCH ×2 (07:49→19:56)
[2018-10-20] MEDS: LEVAQUIN PO SCH (08:30)
[2018-10-20] MEDS: VITAMIN B-12 PO SCH (08:30)
[2018-10-20] MEDS: CYMBALTA PO SCH (08:30)
[2018-10-20] MEDS: MS CONTIN PO SCH (08:30)
[2018-10-20] MEDS: PRILOSEC PO SCH (08:30)
[2018-10-20] MEDS: LYRICA PO SCH (08:31)
[2018-10-20] MEDS: ATARAX PO PRN (08:37)
[2018-10-20] MEDS: DOXYCYCLINE 100 MG in NS 250 ML IV SCH (10:12)
--- NOTE | 2018-10-20 20:52 | PROGRESS NOTE ---
DATE: 10/20/2018 SUBJECTIVE: Overall, the patient has achieved significant improvement over the course of the last 24 hours. The patient was given 4 L of GoLYTELY yesterday. With this, the patient has had significant output. The patient notes his abdominal discomfort and nausea to be significantly improved. In regards to his pneumonia, Dr. Loera was consulted yesterday. Medication adjustments were made. This morning upon my arrival, the patient noted decrease in cough, congestion and shortness of breath. Throughout the day today, the patient has achieved further improvement. His energy level is improving. He denies fevers, chills or shortness of breath. OBJECTIVE: T-max 97.9 degrees, heart rate 77 to 86, respirations 14 to 18. Blood pressure 97 to 141 over 43 to 103.General: No acute distress. Cardiovascular: Regular rate and rhythm. No significant murmurs, rubs or gallops. Pulmonary: Crackles at bilateral bases. Abdomen is soft, nontender, nondistended. Positive bowel sounds. Extremities: Moves all extremities well. No significant clubbing, cyanosis or edema. Dermatologic evaluation reveals no evidence of rash. LABORATORY DATA: White blood cell count 6.39, hemoglobin 10.4, hematocrit 32.2, platelet count 429,000. Sodium 133, potassium 3.7, chloride 100, bicarbonate 23, BUN 11, creatinine 0.7, glucose 103, calcium 8.1, total bilirubin 0.22, total protein 5.8, albumin 2.9, alkaline phosphatase 88, AST 13, ALT 6. ASSESSMENT AND PLAN: 1. Right upper lobe pneumonia/left lower lobe bronchopneumonia: This was noted per CT scan. I appreciate Dr. Loera's consultation. For now, we will continue Rocephin, Levaquin and doxycycline therapy. We will plan to transition to oral medications once appropriate. We will continue bronchodilators, incentive spirometry and aspiration precautions. We will follow up on sputum culture. 2. Intractable abdominal pain with associated nausea: This likely was secondary to underlying constipation/ileus. With GoLYTELY, the patient has had significant output. His abdominal discomfort has improved considerably. He denies nausea this evening. We will continue his excellent bowel regimen now that his colon has been evacuated. 3. Leukocytosis: The patient has achieved improvement with antibiotic intervention. This likely was a consequence of his pneumonia. 4. Thrombocytosis: Platelet count remains slightly elevated, but improved. We will continue to follow. He has no evidence of thrombosis. 5. Reflux disease: We will continue the patient on omeprazole therapy and aspiration precautions. 6. Hypertriglyceridemia/hyperlipidemia: We will continue pravastatin therapy. 7. Peripheral neuropathy: The patient is treated with narcotic intervention. He understands this likely is contributing to his constipation. I have asked the patient to discuss decreasing his dosage with his pain specialist. 8. Profound weakness: The patient is achieving improvement with treatment of his underlying conditions as described above. 9. Disposition: At this point, the patient continues to require assisted care in a hospital setting. We will plan discharge home once appropriate. cc: Angel Reyna MD
--- NOTE | 2018-10-21 00:05 | PULMONOLOGY PROGRESS NOTE ---
DATE: 10/20/2018 SUBJECTIVE: The patient is awake, alert, and conversant. He reports his sputum production has diminished. He reports he has had 4 bowel movements today and his abdominal pain is resolving. OBJECTIVE: Vital Signs: The patient has been afebrile for the last 24 hours. Blood pressure 117/52, heart rate 77, respiratory rate 18, oxygen saturation 99% on 3 L per nasal cannula. HEENT: Pupils are equal and reactive. Oropharynx appears clear. Neck: Supple. chest: Reveals occasional rhonchi bilaterally. Cardiac: S1, S2. Abdomen: Soft. Extremities: Without significant edema. LABORATORIES: Sputum culture is pending. White blood count 6.39, hemoglobin 10.4, platelet count 429,000. CEA level is 2.0. IMPRESSION: An 83-year-old with 1. Exacerbation of bronchiectasis. 2. Radiation pneumonitis without evidence of recurrence of lung cancer. 3. Ongoing tobacco use. 4. Chronic hypoxic respiratory failure. 5. Chronic obstructive pulmonary disease. 6. Constipation with significant improvement. PLAN: 1. Continue current antibiotic regimen. He appears to be tolerating Levaquin. His QTc is greater than 500 at 501 msec, but is less than his prior QTc of 539 msec, which was measured on 07/31/2018. 2. Encourage smoking cessation. 3. Continue current bronchial hygiene. 4. Anticipate follow-up scan, which is scheduled by Dr. Arguello in November. cc: MD Angel Mayes MD
[2018-10-21] MEDS: FOLIC ACID PO SCH (00:44)
[2018-10-21] MEDS: PRAVACHOL PO SCH (00:44)
[2018-10-21] MEDS: LOVENOX SUBQ SCH (00:44)
[2018-10-21] MEDS: FLOMAX PO SCH (00:45)
[2018-10-21] MEDS: DOXYCYCLINE PO SCH ×2 (00:49→10:03)
[2018-10-21] MEDS: LYRICA PO SCH ×2 (00:49→10:08)
[2018-10-21] MEDS: MS CONTIN PO SCH ×2 (05:07→10:09)
[2018-10-21] MEDS: MOVANTIK PO SCH (06:47)
--- NOTE | 2018-10-21 07:24 | EKG Report ---
Test Performed on : 10/21/2018 06:52:32 AM Test Reason : medications effecting QTc Blood Pressure : / mmHG Vent. Rate : 065 BPM Atrial Rate : 065 BPM P-R Int : 188 ms QRS Dur : 140 ms QT Int : 470 ms P-R-T Axes : 077 -24 054 degrees QTc Int : 488 ms Normal sinus rhythm. Right bundle branch block Abnormal ECG When compared with ECG of 20-OCT-2018 06:59, (Unconfirmed) premature atrial complexes. are no longer present Confirmed by Angel Reyna MD ([id number]) on 10/22/2018 9:10:36 PM
[2018-10-21] MEDS: MUCOMYST 20% INH SCH (08:21)
[2018-10-21] MEDS: DUONEB (A & A) INH SCH ×3 (08:21→15:34)
--- NOTE | 2018-10-21 08:58 | Diag Imaging Result Doc PS360 ---
KUB ABDOMEN - 10/21/2018 INDICATION: constipation COMPARISON: 10/18/2018 FINDINGS: There is no significant constipation. There has been decrease in the mildly hyperinflated small and large bowel loops. No definite free air. There is some rectal gas. IMPRESSION: Improvement from prior. Electronically signed by Joe Penny 10/21/2018 8:56 AM
[2018-10-21] MEDS: VITAMIN B-12 PO SCH (10:02)
[2018-10-21] MEDS: LEVAQUIN PO SCH (10:03)
[2018-10-21] MEDS: PRILOSEC PO SCH (10:03)
[2018-10-21] MEDS: CYMBALTA PO SCH (10:03)
[2018-10-21 15:23] VITALS: BP 126/59
[2018-10-21] MEDS: BENADRYL CREAM TOP PRN (15:37)
--- NOTE | 2018-10-21 20:44 | DISCHARGE SUMMARY ---
ADMISSION DATE: 10/18/2018 DISCHARGE DATE: 10/21/2018 ADMISSION DIAGNOSIS: 1. Abdominal pain. 2. Intractable nausea. 3. Profound weakness. DISCHARGE DIAGNOSES: 1. Right upper lobe pneumonia/left lower lobe bronchopneumonia, improving. 2. Intractable abdominal pain with associated nausea, resolved. 3. Leukocytosis, resolved. 4. Thrombocytosis, improving. 5. Reflux disease, present on arrival. 6. Hypertriglyceridemia/hyperlipidemia, present on arrival. 7. Peripheral neuropathy, present on arrival. 8. Profound weakness, improving. CONSULTATIONS: Dr. Loera with Pulmonary Medicine was consulted for further evaluation and management of abnormal CT scan. PROCEDURES: 1. Chest x-ray was performed on 10/18/2018 which revealed persistent volume loss and opacification of the right upper lobe. The possibility of an endobronchial obstruction in the right upper lobe bronchus with postobstructive pneumonia cannot be excluded and further evaluation is recommended. 2. A flat and upright of the abdomen was performed on 10/18/2018 which revealed constipation and ileus . 3. A CT scan of the chest was performed on 10/19/2018 which revealed worsening pneumonia on the right upper lobe. The possibility of an atypical organism or even neoplasm cannot be excluded. Worsened bronchopneumonia left lower lobe. 4. Flat and upright of the abdomen was performed on 10/21/2018 which revealed improvement from prior. HISTORY AND PHYSICAL EXAMINATION: See admit note. PHYSICAL EXAMINATION PRIOR TO DISCHARGE: Temperature 98.6 degrees, heart rate 76, respirations 20, blood pressure is 126/59. General: Chronically ill-appearing, no acute distress. Cardiovascular: Regular rate and rhythm. No significant murmurs, rubs, or gallops. Pulmonary: Crackles at bilateral bases. Adequate air movement. Abdomen: Soft, nontender, nondistended. Positive bowel sounds. Extremities: Moves all extremities well. No significant clubbing, cyanosis or edema. Dermatologic: Evaluation reveals no evidence of rash. LABORATORY DATA: Prior to discharge: None. HOSPITAL COURSE: Patient was admitted as per history and physical examination. Hospital course per condition is as follows. 1. Right upper lobe pneumonia/left lower lobe bronchopneumonia-upon admission, patient was noted to have an abnormal chest x-ray. CT scan confirmed a right upper lobe pneumonia and left lower lobe bronchopneumonia. Dr. Loera was consulted. Antibiotics and bronchodilators were continued. Throughout hospitalization patient demonstrated significant improvement. A sputum culture prior to discharge grew gram-negative rods. Definitive organism has not been identified, but is suggestive of possible Pseudomonas. Patient will be discharged home with levofloxacin therapy for additional 10 days. We will continue DuoNeb 3 times daily. We will also encourage aspiration precautions. 2. Intractable abdominal pain with associated nausea-upon admission, patient was noted to have intractable symptoms. A flat and upright of the abdomen suggested constipation and an ileus. The patient was treated with GoLYTELY with significant output. Repeat flat and upright suggested resolution. The patient's symptoms have improved considerably. It is likely the patient's constipation is combination of anatomical abnormalities as well as chronic narcotic use. He understands associated risk. We will continue patient on Movantik daily. We will increase MiraLAX and senna S to twice daily scheduled, but hold if stools become loose. Patient understands the importance of maintaining a good bowel regimen. 3. Leukocytosis-upon admission, patient was noted to have an elevated white blood cell count. With treatment of his underlying pneumonia, this resolved. 4. Thrombocytosis-this likely is reactive secondary to his acute disease. With treatment, patient has achieved improvement, although not normalization. Platelet count prior to discharge was 429,000. We will plan to recheck this as an outpatient. 5. Profound weakness-upon admission, patient was noted to be profoundly weak. With hydration and treatment of his constipation/pneumonia, his symptoms improved. At time of discharge, patient was ambulating without difficulty. We will continue to follow this as an outpatient as well. 6. Reflux disease-patient was continued on omeprazole and aspiration precautions. Symptoms remain controlled. 7. Hypertriglyceridemia/hyperlipidemia-patient is currently being treated with pravastatin therapy. We will plan to recheck this as an outpatient. 8. Peripheral neuropathy-patient has longstanding disease. Unfortunately, he has required narcotic pain intervention. He understands the risk associated. I have encouraged him to discuss decreasing his medications with his pain specialist. He has voiced good understanding. DISCHARGE CONDITION: Stable. DISPOSITION: Discharged to home. MEDICATIONS: 1. Acetaminophen 650 mg every 6 hours as needed. 2. DuoNeb 3 times daily. 3. Vitamin B12 1000 mcg daily. 4. Duloxetine 60 mg daily. 5. Fexofenadine 180 mg daily as needed. 6. Folic acid 1 mg at bedtime. 7. Hydroxyzine 25 mg 3 times daily as needed. 8. Levaquin 500 mg daily for 10 days. 9. MS Contin 30 mg every 12 hours. 10. Movantik 25 mg with breakfast. 11. Prilosec 40 mg daily. 12. Pravastatin 40 mg at bedtime. 13. Lyrica 200 mg twice daily. 14. Tamsulosin 0.4 mg at bedtime. 15. MiraLAX 17 g in 8 ounces of juice twice daily. 16. Senna-S 1 tablet twice daily hold for loose stools. FOLLOWUP: The patient is to follow up with me in approximately 1 to 2 weeks. cc: Angel Reyna MD
== END 2018-10-21 17:48 | disposition home or self-care (01) | DRG 191 ==
LOC: DIRADM 17:41 → 4N 17:49
PROVIDERS: ADMIT Internal Medicine; ATTEND Internal Medicine
CPT/HCPCS: 71020; 71046; 71260; 74000; 74018; 74019; 74020; 80053; 82150; 82378; 83690; 85025; 87040; 87070; 87077; 87186; 87205; 93005; 93010; 94640; 94761; 94799; A9270; J0696; J1650; J2550; J7030; J7050; Q9967

== ENCOUNTER 2018-10-27 11:24 | Inpatient (IN) ==
[2018-10-27] MEDS ORDERED: ALLEGRA PO PRN (12:20)
[2018-10-27] MEDS ORDERED: MIRALAX PO PRN (12:20)
[2018-10-27] MEDS ORDERED: TYLENOL PO PRN (12:20)
[2018-10-27] MEDS ORDERED: PHENERGAN IV PRN (12:22)
[2018-10-27] MEDS ORDERED: SOLU-MEDROL IV ONE (12:22)
[2018-10-27] MEDS ORDERED: SODIUM CHLORIDE 0.9% INJ PRN (12:22)
[2018-10-27] MEDS ORDERED: NS 1,000 ML ONE (12:53)
[2018-10-27 12:56] LABS: BASO# 0.02 X1000 (0.0-0.2); BASO% 0.2 % (0.0-0.8); EOS# 0.62 X1000 (0.0-0.7); EOS% 7.4 % (0.0-10.0); HEMATOCRIT 38.1 % (42.0-52.0); HEMOGLOBIN 12.8 g/dL (14.0-18.0); IMM GRAN# 0.03 X1000 (0.0-0.04); IMM GRAN% 0.4 % (0.0-0.5); LYMPH# 1.79 X1000 (1.2-3.4); LYMPH% 21.4 % (20.5-51.1); MCH 26.7 PG (27-31); MCHC 33.6 g/dL (33-37); MCV 79.4 FL (81-99); MONO# 1.17 X1000 (0.11-0.59); MPV 8.9 FL (7.4-10.4); NEUT# 4.72 X1000 (1.4-6.5); NEUT% 56.6 % (42.2-75.2); PLT 502 X1000 (130-400); RDW 15.1 % (11.5-14.5); WBC 8.35 X1000 (4.8-10.8)
[2018-10-27] MEDS: NS 1,000 ML IV SCH (13:42)
[2018-10-27] MEDS: LOVENOX SUBQ SCH (13:43)
[2018-10-27 13:56] LABS: AGAP 15; ALB/GLOB RATIO 1.3; ALBUMIN 3.5 g/dL (3.5-5.0); ALKALINE PHOSPHATASE 104 U/L (32-122); AMYLASE 51 U/L (20-200); BUN 20 mg/dL (8-22); CALCIUM 9.3 mg/dL (8.8-10.2); CHLORIDE 98 mmol/L (98-107); COSMO 273; ESTIMATED GFR > 60; GLUCOSE 106 mg/dL (70-104); GOT 16 U/L (10-34); GPT 6 U/L (10-44); LIPASE 13 U/L (13-60); POTASSIUM 4.5 mmol/L (3.5-5.1); SODIUM 135 mmol/L (136-145); TCO2 22 mmol/L (25-35); TOTAL BILIRUBIN 0.33 mg/dL (0.20-1.00); TOTAL PROTEIN 6.2 g/dL (6.3-8.3)
[2018-10-27 16:22] LABS: URINE SOURCE CLEAN CATCH
[2018-10-27 16:25] LABS: UR EPITHELIAL CELLS <10 /HPF (<10); URINE BACTERIA NEGATIVE /HPF; URINE RBC <10 /HPF (<10)
[2018-10-27 16:26] LABS: BILIRUBIN URINE NEGATIVE (NEGATIVE); BLOOD URINE NEGATIVE (NEGATIVE); COLOR YELLOW; GLUCOSE URINE NEGATIVE (NEGATIVE); KETONE URINE NEGATIVE (NEGATIVE); LEUKOCYTES URINE MODERATE (NEGATIVE); NITRITE URINE NEGATIVE (NEGATIVE); PROTEIN URINE TRACE mg/dL (NEGATIVE); SP GRAVITY URINE 1.015; TURBIDITY URINE CLEAR (CLEAR); UROBILINOGEN URINE NORMAL (NORMAL)
[2018-10-27] MEDS: DUONEB (A & A) INH SCH ×2 (17:06→22:00)
[2018-10-27] MEDS: FLOMAX PO SCH (20:50)
[2018-10-27] MEDS: PRAVACHOL PO SCH (20:50)
[2018-10-27] MEDS: PERICOLACE PO SCH (20:50)
[2018-10-27] MEDS: ATARAX PO SCH (20:50)
[2018-10-27] MEDS: FOLIC ACID PO SCH (20:50)
[2018-10-27] MEDS: SOLU-MEDROL IV SCH (20:54)
[2018-10-28] MEDS: HUMALOG SUBQ SCH ×5 (00:03→21:25)
[2018-10-28] MEDS: MS CONTIN PO SCH ×3 (00:05→21:21)
[2018-10-28] MEDS: LYRICA PO SCH ×3 (00:05→21:21)
[2018-10-28] MEDS: NS 1,000 ML IV SCH ×2 (02:43→18:36)
--- NOTE | 2018-10-28 02:48 | HISTORY AND PHYSICAL ---
PRIMARY CARE PHYSICIAN: Dr. Angel Reyna. CHIEF COMPLAINT: Abdominal discomfort, chills, pruritus. HISTORY OF PRESENT ILLNESS: An 83-year-old white male with a complicated past medical history, presents for evaluation of above-mentioned symptoms. Pertinent history of present illness began on 10/18/2018. At that time, patient was admitted to [facility] with abdominal discomfort, intractable nausea, and profound weakness. Full evaluation ultimately revealed a right upper lobe pneumonia/left lower lobe bronchopneumonia, significant constipation, precipitating nausea and abdominal discomfort, and profound weakness secondary to above. The patient was treated with IV antibiotics for underlying pneumonia and a bowel prep for his constipation. Sputum culture returned positive for Pseudomonas. Patient was treated with IV antibiotics followed by levofloxacin as an outpatient. The patient was discharged home on 10/21/2018. Patient was seen in clinic yesterday for hospital follow-up. The patient initially did quite well. Unfortunately, over the course of the previous 24 hours, he again developed weakness and nausea. We attempted to treat this as an outpatient, although this proved unsuccessful. The patient presented to my office unannounced with worsening abdominal discomfort, pruritus, chills, and weakness. PO intake remains marginal. He denies fevers, cough, congestion, dysuria, hematuria, or pyuria. He states his bowel movements have been regular without hematochezia or melena. PAST MEDICAL HISTORY: 1. Abnormal skin examination with multiple actinic keratoses and seborrheic keratoses. 2. Acute cholecystitis status post laparoscopic cholecystectomy in 1984. 3. History of recurrent pancreatitis. 4. Folic acid deficiency. 5. Vitamin B12 deficiency. 6. Anxiety. 7. Benign prostatic hypertrophy. 8. History of bronchiectasis. 9. Right bundle branch block. 10. Dementia. 11. Depression. 12. Diabetes. 13. Insomnia. 14. History of diverticulitis. 15. Reflux disease. 16. Hypertension. 17. Hypertriglyceridemia. 18. History of T12 compression fracture. 19. History of right inguinal hernia, status post surgical intervention in 2016. 20. Hyperlipidemia. 21. Chronic hypoxia. 22. Irritable bowel syndrome. 23. Chronic low back pain. 24. History of tobacco use. 25. Peripheral neuropathy requiring chronic pain medication. 26. History of lung cancer. 27. History of open appendectomy. CURRENT MEDICATIONS: 1. Acetaminophen 650 mg every 6 hours as needed. 2. DuoNeb 3 times daily. 3. Vitamin B12 1000 mcg daily. 4. Cymbalta 60 mg daily. 5. Mildred 180 mg daily as needed. 6. Folic acid 1 mg at bedtime. 7. Hydroxyzine 25 mg 3 times daily as needed. 8. Morphine ER 30 mg every 12 hours. 9. Movantik 25 mg at breakfast. 10. Omeprazole 40 mg daily. 11. Pravastatin 40 mg at bedtime. 12. Lyrica 200 mg twice daily. 13. Brielle-Colace 1 tablet twice daily as needed. 14. Flomax 0.4 mg at bedtime. ALLERGIES: Patient answered no known drug allergies. SOCIAL HISTORY: Patient has smoked as much as 2 packs of cigarettes per day since the age 16. Unfortunately, he continues to smoke intermittently. He denies alcohol or illicit drug use. 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 He enjoys watching sports. He does not exercise routinely. FAMILY HISTORY: Patient's father passed at age 86 secondary to complications of a stroke. Patient's mother passed at age 92 secondary to complications of leukemia. REVIEW OF SYSTEMS: A 12-point review of systems was performed. Pertinent positives and negatives noted in history present illness. PHYSICAL EXAMINATION: VITAL SIGNS: Temperature 97.3 degrees, heart rate 79, respirations 12, blood pressure 111/63. GENERAL: Chronically ill appearing, no acute distress. HEENT: Normocephalic, atraumatic. Pupils equal, round, reactive to light. Extraocular muscles intact. Sclerae anicteric. [place] conjunctivae. Oropharynx and nasopharynx clear without exudate. NECK: Supple. No lymphadenopathy. No thyromegaly. No bruits auscultated. CARDIOVASCULAR: Regular rate and rhythm. No significant murmurs, rubs, or gallops. PULMONARY: Clear to auscultation bilaterally. ABDOMEN: Soft, nontender, nondistended. Positive bowel sounds. EXTREMITIES: Moves all extremities well. No significant clubbing, cyanosis, or edema. NEUROLOGIC: Cranial nerves 2 through 12 grossly intact. Motor and sensory grossly intact. PSYCHOLOGIC: Appropriate. LABORATORY DATA: White blood cell count 8.35, hemoglobin 12.8, hematocrit 38.1, platelet count 502,000. Sodium 135, potassium 4.5, chloride 98, bicarb 22, BUN 20, creatinine 1.0. Glucose 106, calcium 9.3, total bilirubin 0.33, total protein 6.2, albumin 3.5, alkaline phosphatase 104, AST 16, ALT 6. Amylase 51, lipase 13. Urinalysis revealed trace protein, moderate leukocytes. No bacteria present. ASSESSMENT AND PLAN: An 83-year-old white male with a complicated past medical history as noted, presents for evaluation of above-mentioned symptoms. The patient's abdominal pain, unfortunately, has been chronic. The patient does have a history of extensive constipation, although he states he is having normal bowel movements at present time. There has been no evidence of intestinal ischemia on previous examinations. The patient states he is taking his medications as prescribed. Additionally, patient has chronic pruritus, likely secondary to medications. This has profoundly progressed. He also notes having chills and weakness. Patient will be admitted to the hospital for full evaluation and management of each of these conditions. 1. Admit to General Medicine. 2. Abdominal discomfort--differential diagnosis is quite broad. As described, patient has been admitted on multiple occasions with abdominal discomfort. I am concerned this likely is constipation associated with his chronic narcotic use. Additionally, patient likely has some irritability. With full evaluation in the past, I do not feel aggressive evaluation with CT scan is necessary at present time. Should symptoms persist, we will consider Gastroenterology consultation. We will continue a good bowel regimen. 3. Chronic pleuritis--unfortunately, this has increased. Historically, patient has achieved improvement with steroid intervention. We will provide patient Solu-Medrol 80 mg as a now dosage. We will need to consider whether chronic narcotics is appropriate in this setting. 4. Chills--the patient is currently being treated for underlying pneumonia. At this point, I do not see an indication for broadening antibiotic coverage. We will follow urine culture. 5. Pneumonia--as above, patient has recently been diagnosed. He is currently treated with levofloxacin therapy. We will continue this. 6. Profound weakness--unfortunately, patient continues to have intermittent episodes. Often times, patient does achieve improvement while hospitalized, only to experience a recurrence within 2 to 3 days. The question is raised as to the hydration status at home as well as medications. Patient's is currently assisting him with accurate medications. The patient understands his current condition and the possible need for further chcf or assisted living placement. 7. Dehydration--unfortunately, patient's p.o. intake has decreased over the last several days. We will start patient on IV fluids. Once again, this will be followed. 8. Dementia--unfortunately, patient's symptoms are progressive. We will continue a B complex vitamin. 9. Type 2 diabetes--patient is currently being treated nonmedically. We will cover patient with sliding scale insulin. 10. Reflux disease--we will continue patient on omeprazole therapy. 11. Hyperlipidemia--we will continue patient on pravastatin therapy. 12. Chronic hypoxia--we will continue patient on nocturnal oxygen and oxygen per protocol. 13. Peripheral neuropathy--unfortunately, this is significant. We will continue patient on Lyrica and MS Contin. He understands risks associated with MS Contin use. 14. Fluid, electrolytes, nutrition. We will monitor electrolytes. Normal saline at 75 mL/h, a cardiac prudent diet. 15. Prophylaxis. Patient will be placed on subcu Lovenox. cc: Angel Reyna MD MTDD
[2018-10-28] MEDS: SOLU-MEDROL IV SCH ×2 (03:43→12:43)
[2018-10-28] MEDS: MOVANTIK PO SCH (06:10)
[2018-10-28] MEDS: DUONEB (A & A) INH SCH ×3 (08:49→20:25)
[2018-10-28] MEDS: PERICOLACE PO SCH ×2 (09:16→21:20)
[2018-10-28] MEDS: LEVAQUIN PO SCH (09:16)
[2018-10-28] MEDS: ATARAX PO SCH ×2 (09:17→21:21)
[2018-10-28] MEDS: PRILOSEC PO SCH (09:17)
[2018-10-28] MEDS: CYMBALTA PO SCH (09:17)
[2018-10-28] MEDS: VITAMIN B-12 PO SCH (09:17)
[2018-10-28] MEDS: LOVENOX SUBQ SCH (12:43)
[2018-10-28] MEDS: FLOMAX PO SCH (21:20)
[2018-10-28] MEDS: FOLIC ACID PO SCH (21:21)
[2018-10-28] MEDS: PRAVACHOL PO SCH (21:23)
--- NOTE | 2018-10-28 21:45 | PROGRESS NOTE ---
DATE: 10/28/2018 SUBJECTIVE: Upon my arrival this morning, patient was resting in bed. His biggest concern was that of persistent pruritus. His nausea had improved somewhat. His energy level remained low. Throughout the day today, patient showed minimal improvement. This evening, patient continues to complain of intensive pruritus. The patient's affect does appear to be slightly depressed. The patient states his p.o. intake has been adequate. He denies fevers, chills, nausea, vomiting, shortness of breath, or chest discomfort. OBJECTIVE: T-max 97.9 degrees, heart rate 67 to 94, respirations 16 to 20, blood pressure 108 to 134 over 47 to 66.General: Chronically ill appearing, no acute distress. Cardiovascular: Regular rate and rhythm. No significant murmurs, rubs, or gallops. Pulmonary: Crackles at bilateral bases. Adequate air movement. Abdomen: Soft, nontender, nondistended. Positive bowel sounds. Extremities: Moves all extremities well. No significant clubbing, cyanosis, or edema. Dermatologic: Evaluation reveals no evidence of rash. LABORATORY DATA: None. ASSESSMENT AND PLAN: 1. Abdominal discomfort-patient has achieved improvement with symptomatic management. He is having normal bowel movements. We will continue his current medical regimen. 2. Chronic pruritus-this is significant. Patient was started on Solu-Medrol upon admission. We will continue this. We will attempt to decrease his dosing, however. We will increase hydroxyzine to 3 times daily. I suspect this is likely secondary to his chronic narcotic use. 3. Chills-the patient has achieved improvement during the first 24 hours the hospitalization. We will continue symptomatic management. 4. Pneumonia-this is a recent diagnosis. We will continue levofloxacin therapy. We will check an EKG in the a.m. as levofloxacin can interact with hydroxyzine. We will confirm there is no evidence of QT prolongation. 5. Profound weakness-patient remained in bed the vast majority of the day. We will encourage activity. 6. Dehydration-the patient's p.o. intake is improving. For now, we will continue IV fluids. 7. Dementia-unfortunately, this continues to play a role in his overall health. We will continue B complex vitamin. 8. Type 2 diabetes-we will continue patient with sliding scale insulin. I suspect blood sugars will improve with decreasing steroid intervention. 9. Reflux disease-we will continue omeprazole therapy. 10. Hyperlipidemia-we will continue patient on pravastatin therapy. 11. Chronic hypoxia-we will continue oxygen per protocol. 12. Peripheral neuropathy-patient has significant disease. He is treated with Lyrica and MS Contin. We will continue this for now. I have and will continue to stress the importance of minimizing his narcotic use. He is to discuss this with his pain specialist. 13. Disposition-at this point, patient continues to require group home care in a hospital setting. We will plan discharge home once appropriate. cc: Angel Reyna MD
[2018-10-29] MEDS ORDERED: SOLU-MEDROL IV SCH (01:00)
[2018-10-29] MEDS: HUMALOG SUBQ SCH ×2 (06:14→10:55)
[2018-10-29] MEDS: MOVANTIK PO SCH (06:14)
[2018-10-29] MEDS: MS CONTIN PO SCH (08:07)
[2018-10-29] MEDS: PRILOSEC PO SCH (08:07)
[2018-10-29] MEDS: PERICOLACE PO SCH (08:07)
[2018-10-29] MEDS: CYMBALTA PO SCH (08:07)
[2018-10-29] MEDS: ATARAX PO SCH (08:07)
[2018-10-29] MEDS: LEVAQUIN PO SCH (08:07)
[2018-10-29] MEDS: VITAMIN B-12 PO SCH (08:07)
[2018-10-29] MEDS: LYRICA PO SCH (08:08)
--- NOTE | 2018-10-29 08:34 | EKG Report ---
Test Performed on : 10/29/2018 06:23:38 AM Test Reason : medication- rule out QT prolonation Blood Pressure : / mmHG Vent. Rate : 072 BPM Atrial Rate : 072 BPM P-R Int : 172 ms QRS Dur : 130 ms QT Int : 440 ms P-R-T Axes : 072 -02 050 degrees QTc Int : 481 ms Normal sinus rhythm. Right bundle branch block Abnormal ECG When compared with ECG of 21-OCT-2018 06:52, No significant change was found Confirmed by Ada Martinez MD ([id number]) on 10/31/2018 4:10:28 PM
[2018-10-29 11:18] VITALS: BP 136/68
[2018-10-29] MEDS: DUONEB (A & A) INH SCH (11:28)
[2018-10-29] MEDS: NS 1,000 ML IV SCH (13:14)
--- NOTE | 2018-10-29 16:21 | DISCHARGE SUMMARY ---
ADMISSION DATE: 10/27/2018 DISCHARGE DATE: 10/29/2018 ADMISSION DIAGNOSIS: 1. Abdominal pain. 2. Chills. 3. Pruritus. DISCHARGE DIAGNOSES: 1. Abdominal discomfort, resolved. 2. Acute on chronic pruritus, improved. 3. Chills, resolved. 4. Pneumonia, present on arrival, treated. 5. Profound weakness, improved. 6. Dehydration, improved. 7. Dementia, present on arrival. 8. Type 2 diabetes, present on arrival. 9. Reflux disease, present on arrival. 10. Hyperlipidemia, present on arrival. 11. Chronic hypoxia, present on arrival. 12. Peripheral neuropathy, present on arrival. CONSULTATIONS: None. PROCEDURES: EKG on 10/29/2018 revealed no change from previous. No evidence of prolonged QT interval. HISTORY AND PHYSICAL EXAMINATION: See admit note. PHYSICAL EXAMINATION PRIOR TO DISCHARGE: Temperature 98.3 degrees, heart rate 64, respirations 18, blood pressure is 136/68. General: Chronically ill appearing, no acute distress. Cardiovascular: Regular rate and rhythm. No significant murmurs, rubs, or gallops. Pulmonary: Crackles at bilateral bases. Adequate air movement. Abdomen: Soft, nontender, nondistended. Positive bowel sounds. Extremities: Moves all extremities well. No significant clubbing, cyanosis, or edema. Dermatologic: Evaluation reveals no evidence of rash. LABORATORY DATA: None. HOSPITAL COURSE: Patient was admitted as per history and physical examination. Hospital course per condition is as follows. 1. Abdominal discomfort-patient has been admitted to the hospital on multiple occasions secondary to abdominal discomfort. Thus far, the only etiology identified has been chronic constipation. The patient is being treated with multiple medications. We will also remain aware of the possibility of ischemic bowel. With hydration, patient achieved improvement. His bowel movements are regular. We will discharge patient home on his current regimen. We will follow this closely. 2. Chronic pruritus-this is significant. Patient has required multiple trips to the emergency department secondary to pruritus. He has seen several dermatologists. At this point, it is suspected patient may have an allergy to his MS Contin. Unfortunately, he has not been able to titrate off of this to date. While hospitalized, patient was treated with Solu-Medrol. His hydroxyzine was increased to 3 times daily. With this, his symptoms have improved. We will discharge patient home with hydroxyzine 3 times daily. We will pursue a steroid taper, but continue patient on 5 mg daily until I see him in clinic. While I would like to avoid placing him on chronic steroids, his frequent hospitalizations pose a significant risk in his overall health. We will evaluate and determine if the benefits outweigh the risk at his next outpatient evaluation. 3. Chills-while hospitalized, patient was noted to have chills. He remained afebrile throughout hospitalization. At time of discharge, he was asymptomatic. He will complete treatment for pneumonia as described below. We will treat pruritus and abdominal discomfort as above. 4. Pneumonia-this was a recent diagnosis while hospitalized. He is treated with levofloxacin therapy. He will complete his previous prescription. EKG today was performed to rule out QT prolongation in the setting of hydroxyzine and levofloxacin therapy. EKG was unchanged from previous. 5. Nausea-this likely was a consequence of his abdominal discomfort and chronic pruritus. He was treated symptomatically while hospitalized. The patient will be discharged home with as needed Phenergan and hydroxyzine. We will follow this. 6. Profound weakness-upon admission, patient was noted to be profoundly weak. He had spent the vast majority of 48 hours in bed. With treatment as described above, patient's energy level improved. At time of discharge, he was ambulating without assistance. We will encourage patient to eat a healthy diet and ambulate routinely and increase his activity. 7. Dehydration-patient achieved improvement with intravenous fluids while hospitalized. At time of discharge, he was euvolemic. 8. Dementia-this likely is playing a role in his overall health. He has demonstrated a mild increasing confusion associated with steroid use. I discussed this in detail with patient's . I have encouraged her to follow this closely as an outpatient. We will reevaluate this at clinic next week. 9. Type 2 diabetes-patient's blood sugars increased slightly associated with steroid use. He was covered with sliding scale insulin. We will need to follow this as an outpatient as well. 10. Reflux disease-we will continue patient on omeprazole therapy. Symptoms remained reasonably controlled while hospitalized. 11. Hyperlipidemia-patient was continued on pravastatin therapy. We will follow this as an outpatient. 12. Chronic hypoxia-patient is treated with oxygen per protocol at home. We will continue to encourage smoking cessation as this unfortunately continues. 13. Peripheral neuropathy-patient has longstanding disease. He is treated with Lyrica and MS Contin. We have discussed titrating off of these medications on multiple occasions. Unfortunately, he has not been successful. We will defer management to his pain specialist. DISCHARGE CONDITION: Stable. DISPOSITION: Discharge to home. MEDICATIONS: 1. Acetaminophen 650 mg every 6 hours as needed. 2. DuoNeb 3 times daily. 3. Vitamin B12 1000 mcg daily. 4. Duloxetine 60 mg daily. 5. Mildred 180 mg daily as needed. 6. Folic acid 1 mg daily at bedtime. 7. Hydroxyzine 25 mg, increase to 3 times daily. 8. Levofloxacin 500 mg daily to complete his previous prescription. 9. MS Contin 30 mg q.12 hours. 10. Movantik 25 mg with breakfast. 11. Omeprazole 40 mg daily. 12. MiraLAX twice daily as needed. 13. Pravastatin 40 mg at bedtime. 14. Lyrica 200 mg twice daily. 15. Senna-S 1 tablet twice daily. 16. Tamsulosin 0.4 mg at bedtime. 17. Prednisone starting 20 mg day 1 and decreasing 5 mg daily until 5 mg is reached. He is to continue 5 mg daily thereafter until his next visit. FOLLOWUP: The patient is to follow up with me in approximately 1 to 2 weeks. cc: Angel Reyna MD
== END 2018-10-29 13:27 | disposition home or self-care (01) | DRG 391 ==
LOC: DIRADM 11:24 → 3N 11:37
PROVIDERS: ADMIT Internal Medicine; ATTEND Internal Medicine

== ENCOUNTER 2019-02-16 14:02 | Inpatient (IN) ==
[2019-02-16] MEDS ORDERED: PHENERGAN IV PRN (14:55)
[2019-02-16] MEDS ORDERED: TYLENOL PO PRN (14:55)
[2019-02-16] MEDS ORDERED: PRILOSEC PO PRN (14:55)
[2019-02-16] MEDS: DUONEB (A & A) INH SCH ×2 (15:29→21:15)
[2019-02-16 15:51] LABS: BASO# 0.02 X1000 (0.0-0.2); BASO% 0.3 % (0.0-0.8); EOS# 0.16 X1000 (0.0-0.7); EOS% 2.1 % (0.0-10.0); HEMATOCRIT 40.8 % (42.0-52.0); HEMOGLOBIN 13.4 g/dL (14.0-18.0); IMM GRAN# 0.03 X1000 (0.0-0.04); IMM GRAN% 0.4 % (0.0-0.5); LYMPH# 1.59 X1000 (1.2-3.4); LYMPH% 20.9 % (20.5-51.1); MCH 27.3 PG (27-31); MCHC 32.8 g/dL (33-37); MCV 83.3 FL (81-99); MONO# 0.82 X1000 (0.11-0.59); MONO% 10.8 % (1.7-9.3); MPV 9.3 FL (7.4-10.4); NEUT# 4.98 X1000 (1.4-6.5); NEUT% 65.5 % (42.2-75.2); PLT 403 X1000 (130-400)
[2019-02-16 16:06] LABS: AGAP 13; ALB/GLOB RATIO 1.4; ALBUMIN 3.6 g/dL (3.5-5.0); ALKALINE PHOSPHATASE 80 U/L (32-122); AMYLASE 42 U/L (20-200); BUN 24 mg/dL (8-22); CHLORIDE 102 mmol/L (98-107); COSMO 284; CREATININE 0.8 mg/dL (0.7-1.2); ESTIMATED GFR > 60; GLUCOSE 147 mg/dL (70-104); GOT 15 U/L (10-34); GPT 5 U/L (10-44); LIPASE 17 U/L (13-60); POTASSIUM 4.1 mmol/L (3.5-5.1); SODIUM 139 mmol/L (136-145); TCO2 24 mmol/L (25-35); TOTAL BILIRUBIN 0.27 mg/dL (0.20-1.00); TOTAL PROTEIN 6.2 g/dL (6.3-8.3)
[2019-02-16] MEDS: ATARAX PO SCH ×2 (16:13→20:43)
[2019-02-16] MEDS: LOVENOX SUBQ SCH (16:15)
[2019-02-16] MEDS: ZOSYN 3.375 GM in NS 50 ML IV SCH ×2 (16:15→20:40)
[2019-02-16] MEDS: NS 1,000 ML IV SCH (16:17)
[2019-02-16] MEDS: MS CONTIN PO SCH (20:42)
[2019-02-16] MEDS: LYRICA PO SCH (20:43)
[2019-02-16] MEDS: FLOMAX PO SCH (20:43)
[2019-02-16] MEDS: PRAVACHOL PO SCH (20:43)
[2019-02-16] MEDS: FOLIC ACID PO SCH (20:43)
[2019-02-16] MEDS: PERICOLACE PO SCH (20:43)
--- NOTE | 2019-02-16 21:25 | HISTORY AND PHYSICAL ---
PRIMARY CARE PHYSICIAN: Angel Reyna MD CHIEF COMPLAINT: Abdominal pain, profound weakness. HISTORY OF PRESENT ILLNESS: An 83-year-old white male with a very complicated past medical history presents for evaluation of above-mentioned symptoms. Pertinent history of present illness began on 02/04/2019. At that time, he presented to [facility] with profound weakness and abdominal discomfort. Full evaluation was pursued. The patient was found to have a mild colitis per CT scan. He was discharged home with ciprofloxacin and Flagyl therapy. Unfortunately, patient had difficulty tolerating these medications. He took scheduled doses for only 1 to 2 days. Since that time, he has had persistent abdominal discomfort. His p.o. intake has been marginal. His energy level has been quite low. Per patient's , he has not gotten out of bed with exception of to go to the restroom over that time period. He has nausea, but no vomiting. He has chills, but no fevers. He has chronic cough and congestion, this is largely unchanged from previous. Last bowel movement was last week. The patient presented to my office for further evaluation and management. Because of his outpatient failure of treatment of his colitis, patient will be admitted to the hospital for full evaluation and management. The patient denies any urinary symptoms including dysuria, hematuria, or pyuria. He denies cardiac symptoms including chest pains and palpitations. PAST MEDICAL HISTORY: 1. History of abnormal skin examination with multiple actinic keratoses and seborrheic keratoses. 2. Acute cholecystitis status post laparoscopic cholecystectomy in 1984. 3. History of recurrent pancreatitis. 4. Folic acid deficiency. 5. Vitamin B12 deficiency. 6. Anxiety. 7. Benign prostatic hypertrophy. 8. History of bronchiectasis. 9. Right bundle branch block. 10. Dementia. 11. Depression. 12. Diabetes. 13. Insomnia. 14. History of diverticulitis. 15. Reflux disease. 16. Hypertension. 17. Hypertriglyceridemia. 18. History of T12 compression fracture. 19. History of a right inguinal hernia, status post surgical intervention in 2016. 20. Hyperlipidemia. 21. Chronic hypoxia. 22. Irritable bowel syndrome. 23. Chronic low back pain. 24. History of tobacco use. 25. Peripheral neuropathy requiring chronic pain medications. 26. History of lung cancer. 27. History of open appendectomy. CURRENT MEDICATIONS: 1. Acetaminophen 650 mg every 6 hours as needed. 2. DuoNeb 3 times daily. 3. Vitamin B12 1000 mcg daily. 4. Cymbalta 60 mg daily. 5. Mildred 180 mg daily as needed. 6. Folic acid 1 mg at bedtime. 7. Hydroxyzine 50 mg 3 times daily. 8. Morphine ER 30 mg every 12 hours. 9. Movantik 25 mg daily. 10. Omeprazole 40 mg daily as needed. 11. Pravastatin 40 mg at bedtime. 12. Lyrica 200 mg twice daily. 13. Phenergan as needed. 14. Brielle-Colace 1 tablet twice daily. 15. Tamsulosin 0.4 mg at bedtime. ALLERGIES: Patient answered no known drug allergies. SOCIAL HISTORY: The patient smoked as much as 2 packs of cigarettes per day since the age of 16. He continues to smoke on a routine basis. He denies alcohol or illicit drug use. 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 He enjoys watching sports. He does not exercise routinely. FAMILY HISTORY: Patient's father passed at age 86 secondary to complications of a stroke. Patient's mother passed at age 92 secondary to complications of leukemia. REVIEW OF SYSTEMS: A 12-point review of systems was performed. Pertinent positives and negatives are noted in history present illness. PHYSICAL EXAMINATION: VITAL SIGNS: Temperature 97.0 degrees, heart rate 74, respirations 18, blood pressure is 130/77. GENERAL: Chronically ill appearing, no acute distress. HEENT: Normocephalic, atraumatic. Pupils equal, round, react to light. Extraocular muscles intact. Sclerae anicteric. Estelline conjunctivae. Oral and nasopharynx clear without exudate. DERMATOLOGIC: Showed erythema of the periocular region. NECK: Supple. No lymphadenopathy. No thyromegaly. No bruits auscultated. CARDIOVASCULAR: Regular rate and rhythm. No significant murmurs, rubs, or gallops. PULMONARY: Crackles at bilateral bases. Adequate air movement. ABDOMEN: Soft. Mild tenderness in the lower quadrants without guarding or rebound. Positive bowel sounds. EXTREMITIES: Moves all extremities well. No significant clubbing, cyanosis, or edema. NEUROLOGIC: Cranial nerves 2 through 12 grossly intact. Motor and sensory grossly intact. PSYCHOLOGIC EXAMINATION: Appropriate. LABORATORY DATA: Pending at the time of admission. IMAGING: Recent CT scan suggested mild biliary ductal prominence similar to prior which likely relates to post cholecystectomy state. Stable 2.3 cm cystic lesion arising at the pancreatic body. No evidence of pancreatic inflammation. Stable to mildly decreased ectasia of the infrarenal aorta at 2.5 cm. Atherosclerotic calcifications. Lumbar spine degenerative changes. Uncomplicated colonic diverticulosis. Mild wall thickening along the distal colon and rectum, which may be chronic or may relate to recurrent mild colitis. No abscess. No free air. Heterogenous enlargement of the prostate with mass effect on the urinary base. ASSESSMENT AND PLAN: An 83-year-old white male with a complicated past medical history as noted presents for evaluation of profound weakness, decreased oral intake, and persistent abdominal discomfort. Symptoms are most consistent with a persistent colitis, partially treated and associated dehydration. The patient will be admitted to the hospital for full evaluation and management of this condition. 1. Admit to General Medicine. 2. Colitis, partially treated--Unfortunately, patient was unable to tolerate ciprofloxacin and Flagyl as an outpatient. We will start patient on aggressive but cautious hydration. We will initiate Zosyn therapy. Depending on patient's progress, we will consider whether repeat CT scan evaluation and/or gastroenterology consultation is appropriate. 3. Dehydration--This is a consequence of decreased oral intake. We will start patient on IV fluids as described above. 4. Profound weakness--Unfortunately, patient has spent the vast majority of the last week in the bed secondary to weakness. Historically, with treatment of his underlying gastrointestinal issues, his energy level improves. We will treat as noted. We will encourage out of bed for all meals. We will follow this as well. 5. Chronic constipation--We will remain aware that this may be contributing to his abdominal discomfort. We will resume. Colace, Movantik, and MiraLAX therapy. We will follow this. 6. Chronic pruritus--We will continue patient on hydroxyzine therapy. 7. Dementia--Unfortunately, this is slowly progressive. We will continue to follow while hospitalized. 8. Type 2 diabetes--Patient is currently being treated nonmedically. We will follow blood sugars while hospitalized. 9. Reflux disease--We will continue patient on omeprazole therapy. 10. Hyperlipidemia--We will continue pravastatin therapy. 11. Chronic hypoxia--We will start patient on oxygen per protocol. 12. Peripheral neuropathy--We will continue patient on Lyrica and MS Contin. He understands associated risk of long-term MS Contin use. 13. Fluid, electrolytes, nutrition--We will monitor electrolytes. Normal saline at 100 mL an hour. [place] diet. 14. Prophylaxis--Patient will be placed on subcutaneous Lovenox. cc: Angel Reyna MD
[2019-02-17] MEDS: ZOSYN 3.375 GM in NS 50 ML IV SCH ×4 (03:22→20:09)
[2019-02-17] MEDS: NS 1,000 ML IV SCH ×3 (05:58→19:12)
[2019-02-17] MEDS ORDERED: POLYTRIM OPH SOLUTION OPH SCH (06:00)
[2019-02-17 07:36] LABS: URINE SOURCE CLEAN CATCH
[2019-02-17 07:46] LABS: BILIRUBIN URINE NEGATIVE (NEGATIVE); BLOOD URINE NEGATIVE (NEGATIVE); COLOR YELLOW; GLUCOSE URINE NEGATIVE (NEGATIVE); KETONE URINE TRACE mg/dL (NEGATIVE); LEUKOCYTES URINE NEGATIVE (NEGATIVE); NITRITE URINE NEGATIVE (NEGATIVE); PROTEIN URINE TRACE mg/dL (NEGATIVE); TURBIDITY URINE CLEAR (CLEAR); UROBILINOGEN URINE NORMAL (NORMAL)
[2019-02-17 07:47] LABS: UR EPITHELIAL CELLS <10 /HPF (<10); URINE BACTERIA NEGATIVE /HPF; URINE RBC <10 /HPF (<10); URINE WBC <10 /HPF (<10)
[2019-02-17] MEDS: DUONEB (A & A) INH SCH ×3 (08:11→20:50)
[2019-02-17] MEDS: MS CONTIN PO SCH ×2 (09:13→20:08)
[2019-02-17] MEDS: LYRICA PO SCH ×2 (09:14→20:09)
[2019-02-17] MEDS: CYMBALTA PO SCH (09:14)
[2019-02-17] MEDS: ATARAX PO SCH ×3 (09:14→20:08)
[2019-02-17] MEDS: PERICOLACE PO SCH ×2 (09:14→20:08)
[2019-02-17] MEDS: VITAMIN B-12 PO SCH (09:14)
[2019-02-17] MEDS: ALLEGRA PO SCH (09:19)
[2019-02-17] MEDS: PATIENT'S OWN MED BOTH EYES SCH ×4 (09:30→20:12)
[2019-02-17] MEDS: PATIENT'S OWN MED RIGHT EYE SCH ×3 (09:35→20:13)
[2019-02-17] MEDS: MOVANTIK PO SCH (14:05)
[2019-02-17] MEDS: LOVENOX SUBQ SCH (15:45)
[2019-02-17] MEDS: FOLIC ACID PO SCH (20:08)
[2019-02-17] MEDS: PRAVACHOL PO SCH (20:08)
[2019-02-17] MEDS: FLOMAX PO SCH (20:09)
--- NOTE | 2019-02-17 21:46 | PROGRESS NOTE ---
DATE: 02/17/2019 SUBJECTIVE: The patient was admitted yesterday with outpatient failure of treatment for an underlying colitis. The patient had decreased p.o. intake as well as dehydration upon admission. Patient was initiated on IV fluids. IV Zosyn was initiated. This morning upon my arrival, patient was sitting upright in bed. He was tolerating p.o. He remained very weak. This evening, again, patient was able to tolerate his supper. The patient denies fevers, chills, nausea, vomiting, shortness of breath, or chest discomfort. He has mild abdominal discomfort, however this also is improving. OBJECTIVE: T-max 98.5, heart rate 67 to 102, respirations 16 to 24, blood pressure 96 to 126 over 47 to 61.General: Chronically ill appearing, no acute distress. Cardiovascular: Regular rate and rhythm. No significant murmurs, rubs, or gallops. Pulmonary: Crackles at bilateral bases. Abdomen: Soft, minimal tenderness in low left lower quadrant and right lower quadrant. No guarding or rebound. Positive bowel sounds. Extremities: Moves all extremities well. No significant clubbing, cyanosis, or edema. Dermatologic: Evaluation reveals no evidence of rash. LABORATORY DATA: None. ASSESSMENT AND PLAN: 1. Colitis, partially treated-at this point, clinically patient has improved considerably. We will continue IV Zosyn for now. We will encourage hydration and advance his diet slowly. 2. Dehydration-clinically, patient does appear to be improving. We will continue IV hydration. 3. Profound weakness-the patient has achieved some improvement, however he remains quite weak. We will encourage out of bed for all meals. We will follow this. We will consider whether physical therapy is appropriate. 4. Chronic constipation-this certainly could be contributing to his abdominal discomfort. The patient's Colace, Movantik, and MiraLAX were resumed. We will follow this. 5. Chronic pruritus-we will continue patient on hydroxyzine therapy. 6. Dementia-we will remain aware. 7. Type 2 diabetes-patient is currently treated with dietary modification alone. We will follow blood sugars while hospitalized. 8. Reflux disease-we will continue omeprazole therapy. 9. Hyperlipidemia-we will continue patient on pravastatin therapy. 10. Chronic hypoxia-will continue patient on oxygen per protocol. 11. Peripheral neuropathy-we will continue patient on Lyrica and MS Contin. 12. Disposition-at this point, patient continues to require [facility] care in a hospital setting. We will plan discharge home once appropriate. cc: Angel Reyna MD
[2019-02-18] MEDS: ZOSYN 3.375 GM in NS 50 ML IV SCH ×2 (03:50→09:11)
[2019-02-18] MEDS: NS 1,000 ML IV SCH ×2 (04:14→06:31)
[2019-02-18 07:44] VITALS: BP 139/62
[2019-02-18] MEDS: DUONEB (A & A) INH SCH (08:17)
[2019-02-18] MEDS: ATARAX PO SCH (09:10)
[2019-02-18] MEDS: MS CONTIN PO SCH (09:10)
[2019-02-18] MEDS: LYRICA PO SCH (09:10)
[2019-02-18] MEDS: VITAMIN B-12 PO SCH (09:10)
[2019-02-18] MEDS: CYMBALTA PO SCH (09:11)
[2019-02-18] MEDS: PERICOLACE PO SCH (09:11)
[2019-02-18] MEDS: MOVANTIK PO SCH (09:11)
[2019-02-18] MEDS: ALLEGRA PO SCH (09:11)
[2019-02-18] MEDS: PATIENT'S OWN MED BOTH EYES SCH (09:16)
[2019-02-18] MEDS: PATIENT'S OWN MED RIGHT EYE SCH (09:17)
--- NOTE | 2019-02-18 23:20 | DISCHARGE SUMMARY ---
ADMISSION DATE: 02/16/2019 DISCHARGE DATE: 02/18/2019 ADMISSION DIAGNOSIS: 1. Abdominal pain. 2. Profound weakness. DISCHARGE DIAGNOSES: 1. Colitis, partially treated, improved. 2. Dehydration, improved. 3. Profound weakness, improved. 4. Chronic constipation, present on arrival. 5. Chronic pruritus, present on arrival. 6. Dementia, present on arrival. 7. Diabetes, present on arrival. 8. Reflux disease, present on arrival. 9. Hyperlipidemia, present on arrival. 10. Chronic hypoxia, present on arrival. 11. Peripheral neuropathy, present on arrival. CONSULTATIONS: None. PROCEDURES: None. HISTORY AND PHYSICAL EXAMINATION: See admit note. PHYSICAL EXAMINATION PRIOR TO DISCHARGE: Temperature 97.6 degrees, heart rate 57, respirations 19, blood pressure is 139/62. General: Chronically ill-appearing, in no acute distress. Cardiovascular: Regular rate and rhythm. No significant murmurs, rubs, or gallops. Pulmonary: Crackles at bilateral bases, unchanged from previous. Adequate air movement. Abdomen: Soft, nontender, nondistended. Positive bowel sounds. Extremities: Moves all extremities well. No significant clubbing, cyanosis, or edema. Dermatologic evaluation reveals no evidence of rash. LABORATORY DATA: Prior to discharge: None. HOSPITAL COURSE: The patient was admitted as per history and physical examination. Hospital course per condition is as follows. 1. Colitis-As noted in the admission note, the patient was diagnosed with a mild colitis in the emergency department recently. He was treated with ciprofloxacin and Flagyl therapy, although had difficulty tolerating. The patient took medications for approximately 2 to 3 days. Upon admission, the patient noted lower abdominal discomfort. The patient was started on Zosyn therapy while hospitalized, as well as aggressive hydration. With each of these, his overall condition improved rapidly. At time of discharge, the patient was tolerating p.o. Bowel movements were acceptable. The patient will be discharged home with an additional 5 days of Augmentin therapy. We will monitor this closely as an outpatient. 2. Dehydration-Upon admission, the patient had dry mucous membranes. [id number] ratio was greater than 20. The patient was started on aggressive, but cautious hydration. With this, the patient has achieved euvolemia. The patient will be discharged home with close follow up. We will encourage hydration. 3. Profound weakness-Unfortunately, the patient's noted him to have very little activity over the course of the last week. Primarily, he had been confined to the bed. With treatment of his colitis and his dehydration, his overall condition improved. At time of discharge, the patient was ambulating independently. We will follow this as an outpatient as well. 4. Anorexia-While at home, the patient had a significant decrease in his p.o. intake. While hospitalized, however, his appetite quickly improved. We will treat patient's colitis as above. We will encourage p.o. intake. 5. Chronic pruritus-Patient was maintained on hydroxyzine while hospitalized. Symptoms remain stable. 6. Chronic constipation-Patient is currently being treated with senna S and Movantik on a routine basis as an outpatient. He occasionally requires MiraLAX. We will continue each of these medications as an outpatient. 7. Dementia-The patient is currently being treated supportively. We will follow this as an outpatient. 8. Type 2 diabetes-The patient has been treated with medications in the past. He currently requires no intervention. He is treated with dietary modification alone. Blood sugars remained acceptable while hospitalized. 9. Reflux disease-The patient was continued on omeprazole while hospitalized. Symptoms are controlled. 10. Hyperlipidemia-The patient was maintained on pravastatin therapy while hospitalized. 11. Chronic hypoxia-The patient was treated with oxygen per protocol. At time of discharge, his oxygen saturation was 93% on room air. He will continue oxygen as-needed as an outpatient. He primarily uses this at night time. 12. Peripheral neuropathy-The patient was continued on Lyrica and MS Contin while hospitalized. Symptoms remained adequately controlled. DISPOSITION: Discharge to home. MEDICATIONS: 1. Acetaminophen 650 mg every 6 hours as needed. 2. DuoNeb 3 times daily. 3. Vitamin B12 1000 mcg daily. 4. Duloxetine 60 mg daily. 5. Mildred 180 mg daily. 6. Folic acid 1 mg at bedtime. 7. Hydroxyzine 50 mg 3 times daily. 8. MS Contin 30 mg every 12 hours. 9. Movantik 25 mg daily. 10. Omeprazole 40 mg daily as needed. 11. 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 12. Pravastatin 40 mg at bedtime. 13. Lyrica 200 mg twice daily. 14. Senna S twice daily. 15. Tamsulosin 0.4 mg at bedtime. 16. Phenergan 25 mg every 6 hours as needed. 17. Augmentin 875/125, 1 tablet twice daily for 5 additional days. FOLLOWUP: The patient is to follow up with me in approximately 1 to 2 weeks. cc: Angel Reyna MD
== END 2019-02-18 10:31 | disposition home or self-care (01) | DRG 392 ==
LOC: DIRADM 14:02 → EDIPHOLD 14:43 → 1N 17:42
PROVIDERS: ADMIT Internal Medicine; ATTEND Internal Medicine

== ENCOUNTER 2019-03-08 19:49 | Inpatient (IN) ==
[2019-03-08] MEDS ORDERED: ZOFRAN IV ONE ×2 (20:25→22:23)
[2019-03-08] MEDS ORDERED: DILAUDID IV ONE ×2 (20:25→21:36)
[2019-03-08 20:41] LABS: BASO# 0.01 X1000 (0.0-0.2); BASO% 0.1 % (0.0-0.8); HEMATOCRIT 44.6 % (42.0-52.0); HEMOGLOBIN 15.2 g/dL (14.0-18.0); IMM GRAN# 0.06 X1000 (0.0-0.04); IMM GRAN% 0.5 % (0.0-0.5); LYMPH# 1.88 X1000 (1.2-3.4); LYMPH% 14.2 % (20.5-51.1); MCH 27.5 PG (27-31); MCHC 34.1 g/dL (33-37); MCV 80.8 FL (81-99); MONO# 1.65 X1000 (0.11-0.59); MONO% 12.4 % (1.7-9.3); MPV 9.7 FL (7.4-10.4); NEUT# 9.68 X1000 (1.4-6.5); NEUT% 72.8 % (42.2-75.2); PLT 491 X1000 (130-400); RBC 5.52 XMIL (4.7-6.1); RDW 14.4 % (11.5-14.5); WBC 13.28 X1000 (4.8-10.8)
[2019-03-08 20:54] LABS: URINE SOURCE CLEAN CATCH
[2019-03-08 20:57] LABS: UR EPITHELIAL CELLS >10 /HPF (<10); URINE BACTERIA NEGATIVE /HPF; URINE RBC <10 /HPF (<10); URINE WBC 20-40 /HPF (<10)
[2019-03-08 21:02] LABS: BILIRUBIN URINE SMALL (NEGATIVE); BLOOD URINE TRACE (NEGATIVE); COLOR YELLOW; GLUCOSE URINE NEGATIVE (NEGATIVE); KETONE URINE 60 mg/dL (NEGATIVE); LEUKOCYTES URINE SMALL (NEGATIVE); NITRITE URINE NEGATIVE (NEGATIVE); PROTEIN URINE 50 mg/dL (NEGATIVE); TURBIDITY URINE HAZY (CLEAR); UROBILINOGEN URINE 2 mg/dL (NORMAL)
[2019-03-08 21:12] LABS: AGAP 23; ALB/GLOB RATIO 1.5; ALBUMIN 4.3 g/dL (3.5-5.0); ALKALINE PHOSPHATASE 110 U/L (32-122); AMYLASE 66 U/L (20-200); BUN 21 mg/dL (8-22); CHLORIDE 97 mmol/L (98-107); COSMO 282; CREATININE 1.1 mg/dL (0.7-1.2); ESTIMATED GFR > 60; GLUCOSE 152 mg/dL (70-104); GOT 21 U/L (10-34); GPT 9 U/L (10-44); LIPASE 49 U/L (13-60); POTASSIUM 4.3 mmol/L (3.5-5.1); SODIUM 138 mmol/L (136-145); TCO2 18 mmol/L (25-35); TOTAL BILIRUBIN 1.27 mg/dL (0.20-1.00); TOTAL PROTEIN 7.1 g/dL (6.3-8.3)
--- NOTE | 2019-03-08 21:18 | Diag Imaging Result Doc PS360 ---
EXAM: CHEST-1 VIEW HISTORY: sob TECHNIQUE: Single view COMPARISON: 01/21/2019 FINDINGS: Further decrease in the right upper lobe opacity/infiltrate. No cardiomegaly. No pulmonary edema. No pleural effusions identified. IMPRESSION: Continued improvement Electronically signed by Dimitris Velasquez 03/08/2019 9:16 PM
--- NOTE | 2019-03-08 21:52 | EKG Report ---
Test Performed on : 03/08/2019 8:33:22 PM Test Reason : SOB Blood Pressure : / mmHG Vent. Rate : 093 BPM Atrial Rate : 093 BPM P-R Int : 136 ms QRS Dur : 128 ms QT Int : 500 ms P-R-T Axes : 081 -75 064 degrees QTc Int : 621 ms Sinus rhythm. with premature atrial complexes. Right bundle branch block Left anterior fascicular block Bifascicular block Abnormal ECG When compared with ECG of 04-FEB-2019 18:58, (Unconfirmed) premature atrial complexes. are now present QT has lengthened Unconfirmed Result
--- NOTE | 2019-03-08 21:53 | Diag Imaging Result Doc PS360 ---
EXAM: CT ABD/PELVIS W/IV CONT ONLY HISTORY: abdo pain TECHNIQUE: CT abdomen and pelvis with intravenous contrast COMPARISON: 02/04/2019 FINDINGS: The gallbladder has been removed. No focal hepatic abnormality. No splenomegaly. 2.3 cm pancreatic cyst is similar to the prior exam. No inflammation about the pancreas. No pancreatic calcifications. Normal adrenal glands. Small renal cysts. No hydronephrosis. No aortic aneurysm although there is mild dilatation of the distal aorta. Prominent atherosclerosis. No bowel obstruction. Scattered colonic diverticula. Urinary bladder is moderately distended and appears normal. Prostate remains mildly prominent. IMPRESSION: No interval change This exam was performed using automated exposure control, adjustment of mA or kV according to patient size, and/or use of iterative reconstruction technique. Electronically signed by Dimitris Velasquez 03/08/2019 9:50 PM
--- NOTE | 2019-03-08 23:24 | PROVIDER DOCUMENTATION ---
This chart was entered by Dominique Laird Scribe, acting as scribe for Piter Shen MD. HPI-Abdominal Pain/GI Problem - General Chief Complaint: Abdominal Pain Stated Complaint: ABD PAIN/N/V/D/SOB Time Seen by Provider: 03/08/19 20:18 Source: patient Allergies/Adverse Reactions: Patient Allergies Allergy/AdvReac Type Severity Reaction Status Date / Time No Known Allergies Allergy Verified 03/08/19 20:37 Home Medications: Home Medication List Medication Instructions Recorded Confirmed Last Taken Type Tamsulosin [Flomax] 0.4 mg PO HS 04/20/12 03/08/19 02/15/19 20:00 History PRAVAstatin [Pravachol] 40 mg PO QHS #0 tablet 01/12/15 03/08/19 02/15/19 20:00 Rx Pregabalin [Lyrica] 200 mg PO BID #0 capsule 01/12/15 03/08/19 02/15/19 07:00 Rx Duloxetine [Cymbalta] 60 mg PO DAILY 04/19/17 03/08/19 02/15/19 07:00 History Cyanocobalamin [Vitamin B-12] 1,000 microgm PO DAILY tablet 04/21/17 03/08/19 02/15/19 07:00 Rx Folic Acid 1 mg PO HS tablet 11/10/17 03/08/19 02/15/19 20:00 Rx Morphine E.r. [Ms Contin] 30 mg PO Q12HR tablet 02/25/18 03/08/19 02/16/19 07:00 Rx Albuterol 2.5MG/Ipratrop 0.5MG 3 ml INH RTTID neb 03/16/18 03/08/19 02/15/19 20:00 Rx [Duoneb (A & A)] Sennosides/Docusate Sodium 1 ea PO BID #0 10/21/18 03/08/19 02/09/19 08:00 Rx [Senna-S Tablet] Hydroxyzine [Atarax] 50 mg PO TID@0900,1500,2100 tab 10/29/18 03/08/19 02/16/19 07:00 Rx Fexofenadine [Mildred] 180 mg PO DAILY 01/21/19 03/08/19 02/15/19 07:00 History Naloxegol Oxalate [Movantik] 25 mg PO DAILY 01/21/19 03/08/19 02/16/19 07:00 History Omeprazole [Prilosec] 40 mg PO DAILY PRN PRN 01/21/19 03/08/19 02/16/19 07:00 Hi story Promethazine [Phenergan] 25 mg PO Q6H PRN PRN #20 tab 01/21/19 03/08/19 02/15/19 20:00 Rx Acetaminophen [Tylenol] 650 mg PO Q6H PRN PRN tab 02/18/19 03/08/19 Unknown Rx Amoxicillin/Potassium Clav 1 ea PO BID #10 tab 02/18/19 03/08/19 Unknown Rx [Augmentin 875-125 Tablet] Patient's Own Med 1 drp BOTH EYES 4XDAY misc 02/18/19 03/08/19 Unknown Rx Patient's Own Med 1 drp RIGHT EYE TID@0900,1500,2100 02/18/19 03/08/19 Unknown Rx misc - History of Present Illness-ABD Nature of Presenting Problems: pt is an 83 yom c/o abd pain, n/v and mild sob x 2days. pt has hx of pancreatitis. no fever or chills. pt sts pt will try to gag self to vomit but cannot vomit. tx for lung cancer currently. is anxious at bedside. Abdominal Pain Onset Location: reports: epigastric, suprapubic Pain Radiation: reports: no radiation Quality of Pain: reports: aching Severity in ED: reports: mild Onset/Duration: reports: 2 days ago Timing: reports: still present Activities at Onset: reports: none Modifying Factors: improves with: nothing Associated Symptoms: reports: anxiety, shortness of breath Last BM: 24 hours ago Dark Stools Present?: reports: none noticed Rectal Bleeding: reports: none Rectal Pain: reports: none Emesis Description: reports: none Review of Systems - Adult - REVIEW OF SYSTEMS - ADULT Constitutional: reports: no symptoms reported. denies: chills, fever, fatique Eyes: reports: no symptoms reported Ears, Nose, Mouth & Throat: reports: no symptoms reported Cardiovascular: reports: no symptoms reported Respiratory: reports: see HPI, shortness of breath. denies: cough, dyspnea on exertion, wheezing Gastrointestinal: reports: see HPI, abdominal pain, nausea, vomiting, other (gagging). denies: diarrhea Genitourinary: reports: no symptoms reported Musculoskeletal: reports: no symptoms reported Integumentary: reports: no symptoms reported Neurological: reports: no symptoms reported Psychiatric: reports: no symptoms reported Endocrine: reports: no symptoms reported Hematologic/Lymphatic: reports: no symptoms reported Allergic/Immunologic: reports: no symptoms reported All Other Systems: Reviewed and Negative Past History - Adult - PAST MEDICAL HISTORY-ADULT Review of Records: reports: Nursing Assessment Review, Medications Reviewed, Social history reviewed & non-contributory. Major Childhood Illnesses: reports: denies history Cardiovascular: reports: HTN, hyperlipidemia. denies: cardiac disease Respiratory: reports: COPD, cancer (lung), other (CHRONIC BRONCHIETASIS, COPD, SMOKER , DR WU) Gastrointestinal: reports: diverticulosis, IBS, obstruction, pancreatitis, other Obstetrical/Gynecological: reports: denies history Genitourinary: reports: prostatitis, prostate cancer Musculoskeletal: reports: chronic pain Neurological: reports: dementia, other (CHRONIC PAIN FUL NEUROPATHY- [place] PAIN W/ SM30MG BID AND NORCO) Psychiatric: reports: anxiety Endocrine/Immune: reports: Diabetes Other Conditions: reports: cataract/glaucoma - PRIOR SURGERIES/PROCEDURES Surgical/Procedure History: reports: appendectomy, cholecystectomy, hernia repair, orthopedic (extremity) (hip), back/neck, other (cataract removal; lung biopsy; R kidney) - PRIOR HOSPITALIZATIONS Prior Hospitalizations: reports: for other non-related - IMMUNIZATION STATUS Childhood Immunizations: UTD, See Nurse Assessment Flu Vaccine: See Nurse Assessment - FAMILY HISTORY Family History: reviewed, not pertinent - SOCIAL HISTORY Smoking: cigarettes, greater than 1 pack/day Provider spent 3-5 mins advising pt. on dangers of tobacco.: Discussed manners to quit use, and f/u contacts for add'l counseling. Substance Use: none/never Physical Exam-General - PHYSICAL EXAM-ADULT Initial Vital Signs Reviewed: Yes - CONSTITUTIONAL General Appearance: alert, mild distress, anxious. negative: slow to respond, obtunded, combative - EYES Eyes: PERRL/EOMI, pink conjunctivae - HEAD, EARS, NOSE, MOUTH & THROAT HENMT: normocephalic/atraumatic, moist mucous membranes, normal ENT inspection - NECK Neck: non-tender, full range of motion, supple, normal inspection - RESPIRATORY Respiratory: chest non-tender, lungs clear, normal breath sounds - CARDIOVASCULAR Cardiovascular: normal peripheral pulses, regular rate, rhythm - GASTROINTESTINAL (ABDOMEN) Abdominal Exam: normal bowel sounds, soft, no organomegaly, no pulsatile mass, tenderness (to palp moderate suprapubic, mild epigastrum). negative: non tender, guarding, rigid, rebound - MUSCULOSKELETAL Back Exam: normal inspection Extremity: normal range of motion, non-tender, normal inspection Peripheral Pulses: radial (R): 2+, radial (L): 2+ - SKIN Integumentary: normal color, normal turgor, warm/dry - NEUROLOGIC Neurologic: grossly normal, no motor/sensory deficits - PSYCHIATRIC Psych/Mental Status: normal thought content, normal thought process, oriented x 3, anxious. negative: normal mood/affect Progress - PLAN OF CARE/RESULTS Progress/Plan/Lab Results: Vital Signs - 8 hr 03/08/19 19:51 Temperature 98.0 F Pulse Rate 85 Respiratory Rate 34 H Blood Pressure 124/75 O2 Sat by Pulse Oximetry 98 Laboratory Results - last 24 hr 03/08/19 03/08/19 03/08/19 20:18 20:18 20:37 WBC 13.28 H RBC 5.52 Hgb 15.2 Hct 44.6 MCV 80.8 L MCH 27.5 MCHC 34.1 RDW Std Deviation 14.4 Plt Count 491 H MPV 9.7 Immature Gran % (Auto) 0.5 Neut % (Auto) 72.8 Lymph % (Auto) 14.2 L Storey % (Auto) 12.4 H Eos % (Auto) 0.0 Baso % (Auto) 0.1 Immature Gran # (Auto) 0.06 H Neut # (Auto) 9.68 H Lymph # (Auto) 1.88 Storey # (Auto) 1.65 H Eos # (Auto) 0.00 Baso # (Auto) 0.01 Troponin T < 0.010 Urine Source CLEAN CATCH Orders Category Date Time Status Nursing- Obtain EKG ONCE Care 03/08/19 20:18 Active CHEST-1 VIEW [RAD] Stat Exams 03/08/19 20:[address] ABD/PELVIS W/IV CONT ONLY [CT] Stat Exams 03/08/19 20:26 Ordered AMYLASE [CHEM] Stat Lab 03/08/19 20:18 Received CBC WITH ELECTRONIC DIFF [HEME] Stat Lab 03/08/19 20:18 Completed COMPREHENSIVE METABOLIC PANEL [CHEM] Stat Lab 03/08/19 20:18 Received LIPASE [CHEM] Stat Lab 03/08/19 20:18 Received PRO B-NATRIURETIC PEPTIDE Stat Lab 03/08/19 20:18 Received TROPONIN T Stat Lab 03/08/19 20:18 Completed URINALYSIS W/POSS RFLX CULT [URINALYSIS] Stat Lab 03/08/19 20:37 Results Hydromorphone [Dilaudid] Med 03/08/19 20:25 Discontinued 0.5 mg IV NOW ONE Ondansetron [Zofran] Med 03/08/19 20:25 Discontinued 4 mg IV NOW ONE EKG [EKG] Stat Ther 03/08/19 20:02 Ordered Result Diagrams: 03/08/19 20:18 03/08/19 20:18 - EKG 1 Time of EKG reading by physician:: 20:33 EKG Read and Signed by:: Piter Shen EKG Interpretation (*Must complete 3 of following elements*): Abnormal Rate: 93 (left anterior fasciciular block ) Rhythm: SR w/PACs QRS: RBB MT Interval: normal ST Wave: normal Comments: bifascicular block - XRAY 1 XRAY Study: Chest Impression: See EMR Report ( EXAM: CHEST-1 VIEW HISTORY: sob TECHNIQUE: Single view COMPARISON: 01/21/2019 FINDINGS: Further decrease in the right upper lobe opacity/infiltrate. No cardiomegaly. No pulmonary edema. No pleural effusions identified. IMPRESSION: Continued improvement) Comparison with other Films: changes noted - CT/MRI 1 CT Study: Abdomen, Pelvis Impression: See EMR Report ( EXAM: CT ABD/PELVIS W/IV CONT ONLY HISTORY: abdo pain TECHNIQUE: CT abdomen and pelvis with intravenous contrast COMPARISON: 02/04/2019 FINDINGS: The gallbladder has been removed. No focal hepatic abnormality. No splenomegaly. 2.3 cm pancreatic cyst is similar to the prior exam. No inflammation about the pancreas. No pancreatic calcifications. Normal adrenal glands. Small renal cysts. No hydronephrosis. No aortic aneurysm although there is mild dilatation of the distal aorta. Prominent ather osclerosis. No bowel obstruction. Scattered colonic diverticula. Urinary bladder is moderately distended and appears normal. Prostate remains mildly prominent. IMPRESSION: No interval change This exam was performed using automated exposure control, adjustment of mA or kV according to patient size, and/or use of iterative reconstruction technique. Electronically signed by Dimitris Velasquez 03/08/2019 9:50 PM) Comparison with other Films: changes noted - CONSULTS/PCP/HOSPITALIST Notification #1 *Consult/PCP/Hospitalist*: Dr. perdomo Time Discussed: 23:02 Consult Disposition: Admit Departure - Departure Date of Disposition Decision: 03/08/19 Time of Disposition Decision: 23:22 DIAGNOSIS: Abdominal pain, Severe nausea, Pancreatic cyst, UTI (urinary tract infection) Disposition: ADMITTED INPATIENT 09 Certified Medical Emergency: Emergent Condition: Fair Referrals and Follow-Ups: Luis Reyna MD [Primary Care Provider] - - Critical Care Note This patient required my direct & personal management of CC.: No Attestation - Physician/ FLIP Attestation Patient care was provided by Advanced Practice Provider:: No The physician spent face to face time with patient:: Yes Advanced Practice Provider documentation review:: Supervising physician onsite and consulted in the evaluation and care of this patient. The physician did have a face to face encounter with the patient. This chart was documented by the indicated scribe, (Dominique Laird, [place]) and accurately reflects the services I performed and decisions made by me, Piter Shen MD, as attested by the provider's signature.
[2019-03-08] MEDS ORDERED: PHENERGAN IM ONE (23:29)
[2019-03-08] MEDS ORDERED: NS 1,000 ML IV SCH (23:30)
[2019-03-08] MEDS ORDERED: LEVAQUIN 500 MG/D5W 500 MG/100 ML IVPB IV SCH (23:30)
[2019-03-08] MEDS: ROCEPHIN 1 GM in NS 50 ML IV ONE ×2 (23:39→23:40)
[2019-03-09] MEDS ORDERED: DILAUDID IV ONE (00:20)
[2019-03-09] MEDS ORDERED: MS CONTIN PO SCH (03:15)
[2019-03-09] MEDS ORDERED: ZOFRAN IV PRN (06:11)
[2019-03-09] MEDS ORDERED: PRILOSEC PO PRN (07:00)
[2019-03-09] MEDS ORDERED: SODIUM CHLORIDE 0.9% INJ PRN (08:17)
[2019-03-09] MEDS ORDERED: NS 1,000 ML IV ONE (08:18)
[2019-03-09] MEDS: DUONEB (A & A) INH SCH ×3 (10:00→20:19)
[2019-03-09] MEDS: NS 1,000 ML IV SCH (10:03)
[2019-03-09] MEDS: CYMBALTA PO SCH (10:04)
[2019-03-09] MEDS: VITAMIN B-12 PO SCH (10:04)
[2019-03-09] MEDS: ALLEGRA PO SCH (10:05)
--- NOTE | 2019-03-09 10:54 | HISTORY AND PHYSICAL ---
CHIEF COMPLAINT: Abdominal pains which have been going on for about 3 to 4 days. HISTORY OF PRESENT ILLNESS: Mr. Les Silvestre is an 83-year-old male with a history of multiple medical conditions including diabetes mellitus, gastroesophageal reflux disease, hypertension, hyperlipidemia, peripheral neuropathy, lung cancer, B12 deficiency, folic acid deficiency, recurrent pancreatitis, benign prostatic hypertrophy. He presents to the hospital because of abdominal pain which he has been experiencing for the 3 to 4 days. He also describes having nausea with vomiting. He had a CT scan of the abdomen and pelvis done at the time of presentation which no significant acute findings were noted. There is a notation of a 2.3 cm pancreatic cyst noted but this was also noted in prior exam as well. The patient's urinalysis showed a picture of possible urinary tract infection with about 20 to 40 WBCs per high-power field. The patient was seen and evaluated in the ER, and will be admitted to the floor for further management. PAST MEDICAL HISTORY: Significant for the following: Recurrent pancreatitis, folic acid deficiency, B12 deficiency, anxiety, benign prostatic hypertrophy, dementia, depression, diabetes, gastroesophageal reflux disease, hypertension, hyperlipidemia, irritable bowel syndrome, chronic back pain, tobacco use history, peripheral neuropathy, history of lung cancer. ALLERGIES: No known medication allergies. FAMILY HISTORY: Positive for coronary artery disease. SOCIAL HISTORY: Smokes cigarettes. No alcohol or drug use. PAST SURGICAL HISTORY: Includes appendectomy, cholecystectomy, hernia repair, back and neck surgeries, cataract surgery. MEDICATIONS: His medications include the following: Tamsulosin 0.4 mg p.o. at bedtime, pravastatin 40 mg p.o. at bedtime, Lyrica 200 mg p.o. twice a day, Cymbalta 60 mg p.o. daily, vitamin B12 with 1000 mcg p.o. daily, folic acid 1 mg p.o. daily, morphine ER 30 mg p.o. twice a day, DuoNeb 3 mL 3 times a day, senna-S one twice a day, Atarax 50 mg p.o. 3 times a day, fexofenadine 180 mg p.o. daily, Movantik 25 mg p.o. daily, omeprazole 40 mg p.o. daily p.r.n., Phenergan 25 mg every 6 hours p.r.n., Tylenol 650 mg every 6 hours p.r.n., Augmentin 1 twice a day. REVIEW OF SYSTEMS: Constitutional: No fever. LOADERS: Headaches. Eyes: No blurred vision. ENT: No sinus problems or hearing loss. Cardiovascular: No chest pain. Respiratory: Has cough. GI: Has nausea with vomiting. : No dysuria. Dermatology: Has history of skin cancer. Hematology: No bleeding problems. Musculoskeletal: No joint pains. Psychiatric: Anxiety, depression. Endocrinology: Has diabetes. ASSESSMENT AND PLAN: 1. Probable urinary tract infection. We will start patient on empiric antibiotics. Follow up on urine and blood cultures. 2. Diabetes mellitus. Maintain patient on sliding scale insulin. Monitor blood sugar levels. Check hemoglobin A1c level. 3. Gastroesophageal reflux disease. Continue proton pump inhibitor. 4. Hyperlipidemia. Maintain patient on lipid-lowering agent. 5. Peripheral neuropathy. Continue pregabalin. 6. Benign prostatic hypertrophy. Continue tamsulosin. 7. Raised proBNP level. Obtain 2D echocardiogram of the heart. 8. Abnormal liver function tests. Repeat liver function tests. 9. 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 The patient may need gastroenterology evaluation. 10. Deep vein thrombosis prophylaxis. Sequential compression devices. 11. Gastrointestinal prophylaxis. Proton pump inhibitor. cc: MD Angel Toledo MD
[2019-03-09] MEDS: ATARAX PO SCH ×3 (12:38→20:06)
[2019-03-09] MEDS: HUMULIN R SUBQ SCH ×3 (12:45→20:06)
[2019-03-09] MEDS: ZOSYN 3.375 GM in NS 50 ML IV SCH ×3 (12:49→20:05)
[2019-03-09] MEDS: LYRICA PO SCH ×2 (12:50→20:05)
[2019-03-09] MEDS: PERICOLACE PO SCH ×2 (12:50→20:07)
[2019-03-09] MEDS: MS CONTIN PO SCH ×2 (12:52→20:05)
[2019-03-09] MEDS: MOVANTIK PO SCH (13:02)
[2019-03-09] MEDS: LOVENOX SUBQ SCH (13:04)
[2019-03-09] MEDS: PHENERGAN IV PRN ×2 (13:05→20:05)
[2019-03-09] MEDS ORDERED: FOLIC ACID PO SCH (21:00)
[2019-03-09] MEDS ORDERED: FLOMAX PO SCH (21:00)
[2019-03-09] MEDS ORDERED: PRAVACHOL PO SCH (21:00)
--- NOTE | 2019-03-09 22:46 | PROGRESS NOTE ---
DATE: 03/09/2019 SUBJECTIVE: The patient's chart was reviewed. 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 He has had associated nausea and vomiting. A CT scan of the abdomen revealed no evidence of acute disease. Urinalysis demonstrated a possible urinary tract infection with 20 to 40 white blood cells per high-powered field. Because of his intractable symptoms, the patient was admitted to the hospital for further evaluation and management. This morning, upon my arrival, the patient was still in the emergency department. He noted feeling poorly. The patient was started on IV fluids. Home medications were initiated. Antibiotic in the form of Zosyn was provided. Over the course of the day, the patient has had some improvement, but continues to have abdominal discomfort. This evening, he is again resting in bed. He denies fevers, chills, shortness of breath, or chest discomfort. He notes persistent nausea and abdominal discomfort. OBJECTIVE: T-max 98.6 degrees, heart rate 74 to 101, respirations 18 to 22, blood pressure 114 to 132 over 52 to 72. General: No acute distress. Cardiovascular: Regular rate and rhythm. No significant murmurs, rubs, or gallops. Pulmonary: Pulmonary crackles at bilateral bases. Adequate air movement. Abdomen: Soft, nontender. Showed a mild tenderness in the bilateral lower quadrants and suprapubic region. Positive bowel sounds. Extremities: Moves all extremities well. No significant clubbing, cyanosis, or edema. Dermatologic: Evaluation reveals no evidence of rash. LABORATORY DATA: White blood cell count 13.28, hemoglobin 15.2, hematocrit 44.6, platelet count 491,000. Sodium 138, potassium 4.3, chloride 97, bicarb 18, BUN 21, creatinine 1.1, glucose 152. Calcium 10.0, total bilirubin 1.27, total protein 7.1, albumin 4.3, alkaline phosphatase 110. AST 21, ALT 9. Amylase 66, lipase 49. ProBNP 998. ASSESSMENT AND PLAN: 1. Intractable abdominal pain with associated nausea-Unfortunately, the patient has had multiple hospitalizations with intractable abdominal discomfort. Historically, he has been diagnosed with colitis, constipation, and medication-induced symptoms. At this point, with negative CT scan, we will treat patient with aggressive, but cautious IV hydration. We will treat patient with IV Zosyn to cover for both GI pathogens as well as urine pathogens. We will resume the patient's home medications. 2. Possible urinary tract infection-As above, we will start the patient on Zosyn therapy. We will check a urine culture. 3. Profound weakness-Historically, with hydration and increased p.o. intake, this improves. We will aggressively, but cautiously, hydrate as noted. We will resume home medication. We will follow the patient clinically. 4. Chronic constipation-We will continue the patient on Colace, Movantik, and MiraLAX therapy. 5. Chronic pruritus-We will continue hydroxyzine therapy. 6. Dementia-We will remain aware. 7. Type 2 diabetes-We will continue the patient on a diabetic diet. 8. Reflux disease-We will continue the patient on omeprazole therapy. 9. Hyperlipidemia-We will continue the patient on pravastatin therapy. 10. Chronic hypoxia-The patient will be treated with oxygen per protocol. 11. Peripheral neuropathy-We will continue Lyrica and MS Contin. 12. Disposition-At this point, the patient continues to require group home care in a hospital setting. We will plan discharge home once appropriate. cc: Angel Reyna MD
[2019-03-10] MEDS: ZOSYN 3.375 GM in NS 50 ML IV SCH ×3 (03:14→15:15)
[2019-03-10] MEDS: NS 1,000 ML IV SCH (05:36)
[2019-03-10 05:38] LABS: HEMOGLOBIN A1C 5.6 % (4.8-6.0)
[2019-03-10 06:06] LABS: AGAP 11; ALB/GLOB RATIO 1.4; ALKALINE PHOSPHATASE 68 U/L (32-122); BUN 13 mg/dL (8-22); CALCIUM 8.3 mg/dL (8.8-10.2); CHLORIDE 111 mmol/L (98-107); COSMO 285; CREATININE 0.9 mg/dL (0.7-1.2); ESTIMATED GFR > 60; GLUCOSE 97 mg/dL (70-104); GOT 18 U/L (10-34); GPT 6 U/L (10-44); POTASSIUM 3.2 mmol/L (3.5-5.1); SODIUM 143 mmol/L (136-145); TCO2 21 mmol/L (25-35); TOTAL BILIRUBIN 0.61 mg/dL (0.20-1.00); TOTAL PROTEIN 5.2 g/dL (6.3-8.3)
[2019-03-10] MEDS: HUMULIN R SUBQ SCH ×3 (06:15→16:22)
[2019-03-10] MEDS: MOVANTIK PO SCH (06:16)
[2019-03-10] MEDS: LOVENOX SUBQ SCH (07:58)
[2019-03-10] MEDS: DUONEB (A & A) INH SCH ×2 (08:03→15:04)
[2019-03-10] MEDS: MS CONTIN PO SCH (08:25)
[2019-03-10] MEDS: LYRICA PO SCH (08:25)
[2019-03-10] MEDS: CYMBALTA PO SCH (08:27)
[2019-03-10] MEDS: ATARAX PO SCH ×2 (08:27→15:15)
[2019-03-10] MEDS: PERICOLACE PO SCH (08:27)
[2019-03-10] MEDS: VITAMIN B-12 PO SCH (08:27)
[2019-03-10] MEDS ORDERED: KLOR-CON PO ONE (08:44)
[2019-03-10 12:25] VITALS: BP 99/52
[2019-03-10] MEDS: ALLEGRA PO SCH (15:15)
--- NOTE | 2019-03-11 19:26 | DISCHARGE SUMMARY ---
ADMISSION DATE: 03/09/2019 DISCHARGE DATE: 03/10/2019 ADMISSION DIAGNOSIS: Abdominal pain. DISCHARGE DIAGNOSES: 1. Intractable abdominal pain with associated nausea, improved. 2. Profound weakness, improved. 3. Chronic constipation, present on arrival. 4. Chronic pruritus, present on arrival. 5. Dementia, present on arrival. 6. Type 2 diabetes, present on arrival. 7. Reflux disease, present on arrival. 8. Hyperlipidemia, present on arrival. 9. Chronic hypoxia, present on arrival. 10. Peripheral neuropathy, present on arrival. 11. Bronchiectasis, present on arrival. CONSULTATIONS: None. PROCEDURES: 1. A CT scan of the abdomen and pelvis was performed on 03/08/2019, which revealed no interval change. 2. A chest x-ray was performed on 03/08/2019 which revealed further decrease in right upper lobe opacity/infiltrate. No cardiomegaly. No pulmonary edema. No pleural effusions identified. HISTORY AND PHYSICAL EXAMINATION: See admit note. PHYSICAL EXAMINATION PRIOR TO DISCHARGE: Vital Signs: Temperature 97.5, heart rate 64, respirations 18, blood pressure 99/52. General: Chronically ill appearing, in no acute distress. Cardiovascular: Regular rate and rhythm. No significant murmurs, rubs, or gallops. Pulmonary: Crackles at bilateral bases. Adequate air movement. Abdomen: Soft, nontender, nondistended. Positive bowel sounds. Extremities: Moves all extremities well. No significant clubbing, cyanosis, or edema. Dermatologic: Evaluation reveals no evidence of rash. LABORATORY DATA PRIOR TO DISCHARGE: Sodium 143, potassium 3.2, chloride 111, bicarb 21, BUN 13, creatinine 0.9, glucose 97. Calcium 8.3, total bilirubin 0.61, total protein 5.2, albumin 3.0. Alkaline phosphatase 68, AST 18, ALT 6. HOSPITAL COURSE: The patient was admitted as per history and physical examination. Hospital course per condition is as follows: ASSESSMENT AND PLAN: 1. Intractable abdominal pain with associated nausea - Upon admission, patient was noted to have intractable pain. P.o. intake has decreased to essentially zero secondary to nausea and vomiting. The patient was placed on IV fluids. Zosyn was added for the possibility of underlying intra-abdominal pathology. CT scan, however, suggested no evidence of abnormality. Urinalysis initially suggested a possible infection; however, culture grew normal zafar. With IV hydration, resuming patient's home medications, and antibiotics, patient's overall condition rapidly improved. On day 2 of hospitalization, the patient had returned to his baseline. I discussed the patient's condition in detail with him and with his . At this point, the patient has been admitted on multiple occasions secondary to abdominal discomfort and associated nausea. With IV hydration, IV antibiotics, and scheduling his medications, his condition rapidly improves. I discussed the extreme importance of taking his medications on a routine basis at home. The patient's states that unfortunately this has not been happening. Also stressed the importance of oral hydration. At this point, with known bronchiectasis and the fact that this could be contributing to nausea, we will treat the patient with 10 additional days of doxycycline therapy. We will follow the patient up in clinic in 1 week. 2. Possible urinary tract infection - As above, a urinalysis returned abnormal. Urine culture, however, suggested mixed zafar. We will treat with doxycycline as noted. We will encourage hydration. 3. Profound weakness - Upon admission, the patient was noted to be profoundly weak. With treatment as described above, his condition returned to baseline quickly. We will encourage patient to take his medications routinely at home. We will encourage hydration. 4. Chronic constipation - The patient was continued on Colace, Movantik, and MiraLAX therapy while hospitalized. Symptoms remain controlled. 5. Chronic pruritus - Patient is treated with hydroxyzine therapy. Symptoms are reasonably stable. 6. Dementia - The patient has longstanding disease. He appears to be at baseline currently. We will follow this as an outpatient. 7. Type 2 diabetes - The patient was treated with a diabetic diet while hospitalized. His blood sugars remained controlled. 8. Reflux disease - The patient was continued on omeprazole therapy while hospitalized. We will encourage patient to continue this as an outpatient. 9. Hyperlipidemia - We will continue patient on pravastatin therapy. 10. Chronic hypoxia - The patient was treated with oxygen per protocol while hospitalized. Oxygen levels remained acceptable. 11. Peripheral neuropathy - The patient was continued on Lyrica and MS-Contin. Symptoms remain controlled. 12. Bronchiectasis - The patient has longstanding disease. Unfortunately, he continues to smoke. We will treat the patient with doxycycline as described above. This will be followed. DISCHARGE CONDITION: Stable. DISPOSITION: Discharge to home. MEDICATIONS: 1. DuoNeb 3 times daily. 2. Vitamin B12 at 1000 mcg daily. 3. Cymbalta 60 mg daily. 4. Mildred 180 mg daily. 5. Folic acid 1 mg at bedtime. 6. Hydroxyzine 50 mg at 9 o'clock in the morning, 3 o'clock in the afternoon, and 9 o'clock in the evening. 7. MS-Contin 30 mg every 12 hours. 8. Movantik 25 mg daily. 9. Omeprazole 40 mg daily as needed. 10. Pravastatin 40 mg at bedtime. 11. Lyrica 200 mg twice daily. 12. Senna S twice daily. 13. Tamsulosin 0.4 mg at bedtime. 14. Acetaminophen 650 mg every 6 hours as needed. 15. Phenergan 25 mg every 6 hours as needed. 16. Doxycycline 100 mg twice daily for 10 days. FOLLOWUP: The patient is to follow up with me next week. cc: Angel Reyna MD
== END 2019-03-10 16:40 | disposition home or self-care (01) | DRG 392 ==
LOC: ED 19:49 → SUPCPDRO 03-09 02:48 → SUATTDRO 03-09 02:48 → EDIPHOLD 03-09 02:48 → 1N 03-09 11:51
PROVIDERS: ADMIT Internal Medicine; ATTEND Internal Medicine

== ENCOUNTER 2019-03-23 13:26 | Inpatient (IN) ==
[2019-03-23] MEDS ORDERED: TYLENOL PO PRN ×2 (14:00)
[2019-03-23] MEDS ORDERED: PRILOSEC PO PRN (14:00)
[2019-03-23] MEDS ORDERED: PHENERGAN PO PRN (14:00)
--- NOTE | 2019-03-23 14:28 | Diag Imaging Result Doc PS360 ---
EXAM: CHEST-2 VIEWS HISTORY: Shortness of breath TECHNIQUE: Two views COMPARISON: 03/08/2019 FINDINGS: The right upper lobe infiltrate/opacity is actually slightly more prominent on the current study than it was on the prior exam. The left lung remains well expanded and clear. No cardiomegaly. No pleural effusions. IMPRESSION: Mild interval worsening. Electronically signed by Dimitris Velasquez 03/23/2019 2:26 PM
[2019-03-23] MEDS: DUONEB (A & A) INH SCH ×3 (14:41→23:05)
--- NOTE | 2019-03-23 14:50 | HISTORY AND PHYSICAL ---
PRIMARY CARE PHYSICIAN: Dr. Angel Reyna CHIEF COMPLAINT: Cough and congestion. HISTORY OF PRESENT ILLNESS: An 84-year-old white male with a very complicated past medical history presents for evaluation of above-mentioned symptoms. Pertinent history of present illness began on 03/09. At that time, patient was admitted to [facility] with intractable abdominal pain and weakness. He was treated with IV fluids. His home medications were resumed. The patient's overall condition rapidly improved. On 03/10, he was discharged home. The patient and his states that he did well until 03/19. At that time, he developed upper respiratory symptoms including cough and congestion. Since that time, unfortunately, symptoms have progressed. He currently complains of associated shortness of breath, wheezing, fatigue, low- grade fevers, chills, and decreased appetite. The cough is currently productive of a purulent sputum. He notes shortness of breath even at rest. He notes progressive wheezing. He has had a sick contact in his . Because of his underlying bronchiectasis and significant symptoms, patient will be admitted to the hospital for full evaluation and management. PAST MEDICAL HISTORY: 1. Multiple actinic keratoses and seborrheic keratoses. 2. History of cholecystitis, status post laparoscopic cholecystectomy in 1984. 3. History of recurrent pancreatitis, last episode in 2007. 4. Folic acid deficiency. 5. Vitamin B12 deficiency. 6. Anxiety. 7. Benign prostatic hypertrophy. 8. Bronchiectasis. 9. History of chest pain with negative cardiac evaluation in 2012. 10. Dementia. 11. Depression. 12. Type 2 diabetes. 13. Insomnia. 14. History of diverticulitis in the . 15. Reflux disease. 16. Hypertension. 17. Hypertriglyceridemia. 18. History of a T12 compression fracture in 2010. 19. History of a right inguinal hernia status post surgical intervention by Dr. Bolden. 20. Hyperlipidemia. 21. Chronic hypoxia requiring nocturnal oxygen. 22. Irritable bowel syndrome. 23. Low back pain, chronic. 24. Longstanding history of tobacco use. 25. Osteoarthritis. 26. Peripheral neuropathy. 27. History of a pulmonary nodule. 28. Acute appendicitis status post open appendectomy in 1969. CURRENT MEDICATIONS: 1. Acetaminophen 650 mg every 6 hours as needed. 2. DuoNeb 3 times daily. 3. Vitamin B12 1000 mcg daily. 4. Cymbalta 60 mg daily. 5. Mildred 180 mg daily. 6. Folic Acid 1 mg at bedtime. 7. Atarax 50 mg 3 times daily. 8. Morphine ER 30 mg every 12 hours. 9. Movantik 25 mg daily. 10. Omeprazole 40 mg daily as needed. 11. Pravastatin 40 mg at bedtime. 12. Lyrica 200 mg twice daily. 13. Senna-S 1 tablet twice daily. 14. Tamsulosin 0.4 mg at bedtime. ALLERGIES: The patient answered no known drug allergies. SOCIAL HISTORY: The patient has longstanding history of smoking. He smoked 2 packs per day for 26 years. He quit in 2005. He has since resumed, approximately 1/2 pack per day. He denies alcohol or illicit drug use. 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 He enjoys watching sports. He is unable to exercise routinely. FAMILY HISTORY: Patient's father passed at age 86 secondary to complications of a stroke. Patient's mother passed at age 92 secondary to complications of leukemia. REVIEW OF SYSTEMS: A 12 point review of systems was performed. Pertinent positives and negatives are noted in history of present illness. PHYSICAL EXAMINATION: VITAL SIGNS: Temperature 98.4 degrees, heart rate 110, respirations, 18 and blood pressure 132/83. GENERAL: Chronically ill appearing with mild respiratory compromise. HEENT: Normocephalic atraumatic. Pupils equal, round, and reactive to light. Extraocular muscles intact. Sclerae anicteric. [place] conjunctivae. Oral and nasopharynx clear without exudate. NECK: Supple. No lymphadenopathy. No thyromegaly. No bruits auscultated. CARDIOVASCULAR: Slightly tachycardic. Regular rhythm. No significant murmurs, rubs, or gallops. PULMONARY: Crackles at bilateral bases. Wheezing and rhonchi bilaterally in the upper lung field. Compromised air movement. ABDOMEN: Soft, nontender, nondistended. Positive bowel sounds. EXTREMITIES: Moves all extremities well. No significant clubbing, cyanosis, or edema. NEUROLOGIC: Cranial nerves 2-12 grossly intact. Motor and sensory grossly intact. PSYCHOLOGIC: Examination is appropriate. LABORATORY DATA: Pending at the time of admission. Chest x-ray is pending at the time of admission. ASSESSMENT AND PLAN: An 84-year-old white male with a very complicated past medical history as noted presents for evaluation of profound shortness of breath with associated cough, congestion, subjective fevers, and chills. Symptoms are most consistent with a bronchiectasis exacerbation. With his prolonged history of tobacco use, patient also has a prolonged history of tobacco use, and associated wheezing, I am concerned the patient may also have underlying COPD and associated exacerbation. Patient will be admitted to the hospital for full evaluation and management. 1. Admit to General Medicine. 2. Bronchiectasis exacerbation-We will check blood cultures and sputum cultures. We will start patient on DuoNeb every 4 hours while awake. We will initiate antibiotics in the form of levofloxacin and Rocephin therapy. We will determine long-term antibiotics depending on culture data. 3. Bronchospasm/possible COPD exacerbation-Patient does not carry the diagnosis of COPD, however with his prolonged tobacco history, this is a likely finding. With wheezing bilaterally, I am concerned that this represents an underlying exacerbation. We will start patient on Solu- Medrol 40 mg q.12 hours. We will treat patient with DuoNeb every 4 hours while awake. 4. Shortness of breath-This is likely a consequence of above. We will treat patient with oxygen per protocol. We will encourage incentive spirometry and aspiration precautions. 5. Profound weakness-once again, this is likely a consequence of his acute illness. We will treat as described above. 6. Folic acid and vitamin B12 deficiencies-We will continue patient on replacement. 7. Anxiety/depression-We will continue patient on Cymbalta therapy. 8. History of type 2 diabetes--Patient is currently being treated with dietary modification. With adding steroids, we will need to monitor this closely. 9. Reflux disease-We will continue patient on proton pump inhibitor as needed. 10. Hyperlipidemia - We will continue patient on pravastatin therapy. 11. Hypoxia-Patient is treated with nocturnal oxygen at home. We will treat patient with oxygen per protocol while hospitalized. 12. Peripheral neuropathy/chronic pain-We will continue patient on his home medications. 13. Fluid, electrolytes, nutrition. We will monitor electrolytes. Normal saline at KVO. Regular diet. 14. Prophylaxis. Patient will be placed on subcutaneous Lovenox. cc: Angel Reyna MD
[2019-03-23] MEDS: LEVAQUIN 500 MG/D5W 500 MG/100 ML IVPB IV SCH (15:07)
[2019-03-23] MEDS: NS 1,000 ML IV SCH (15:08)
[2019-03-23] MEDS: ATARAX PO SCH ×2 (15:17→20:45)
[2019-03-23 15:27] LABS: BASO# 0.01 X1000 (0.0-0.2); BASO% 0.1 % (0.0-0.8); EOS# 0.19 X1000 (0.0-0.7); EOS% 1.8 % (0.0-10.0); HEMATOCRIT 43.4 % (42.0-52.0); HEMOGLOBIN 14.5 g/dL (14.0-18.0); IMM GRAN# 0.08 X1000 (0.0-0.04); IMM GRAN% 0.8 % (0.0-0.5); LYMPH% 13.4 % (20.5-51.1); MCH 27.9 PG (27-31); MCHC 33.4 g/dL (33-37); MCV 83.6 FL (81-99); MONO# 0.85 X1000 (0.11-0.59); MONO% 8.1 % (1.7-9.3); MPV 9.2 FL (7.4-10.4); NEUT# 7.93 X1000 (1.4-6.5); NEUT% 75.8 % (42.2-75.2); PLT 363 X1000 (130-400); RBC 5.19 XMIL (4.7-6.1); WBC 10.46 X1000 (4.8-10.8)
[2019-03-23 15:46] LABS: AGAP 17; ALB/GLOB RATIO 1.2; ALBUMIN 3.6 g/dL (3.5-5.0); ALKALINE PHOSPHATASE 99 U/L (32-122); BUN 23 mg/dL (8-22); CALCIUM 9.1 mg/dL (8.8-10.2); CHLORIDE 97 mmol/L (98-107); COSMO 278; ESTIMATED GFR > 60; GLUCOSE 137 mg/dL (70-104); GOT 18 U/L (10-34); GPT 5 U/L (10-44); POTASSIUM 4.5 mmol/L (3.5-5.1); SODIUM 136 mmol/L (136-145); TCO2 22 mmol/L (25-35); TOTAL BILIRUBIN 0.61 mg/dL (0.20-1.00); TOTAL PROTEIN 6.7 g/dL (6.3-8.3)
[2019-03-23] MEDS: SOLU-MEDROL IV SCH ×3 (16:11→23:29)
[2019-03-23] MEDS: ROCEPHIN 1 GM in NS 50 ML IV SCH (17:40)
[2019-03-23] MEDS ORDERED: PHENERGAN IV PRN (18:51)
[2019-03-23] MEDS ORDERED: SODIUM CHLORIDE 0.9% INJ PRN (18:51)
[2019-03-23] MEDS: PERICOLACE PO SCH (20:45)
[2019-03-23] MEDS: FOLIC ACID PO SCH (20:45)
[2019-03-23] MEDS: FLOMAX PO SCH (20:45)
[2019-03-23] MEDS: LYRICA PO SCH (20:45)
[2019-03-23] MEDS: MS CONTIN PO SCH (20:45)
[2019-03-23] MEDS: PRAVACHOL PO SCH (20:46)
[2019-03-24] MEDS: DUONEB (A & A) INH SCH ×6 (03:24→23:19)
[2019-03-24] MEDS: SOLU-MEDROL IV SCH ×4 (06:09→21:03)
[2019-03-24] MEDS: PERICOLACE PO SCH ×2 (08:29→20:30)
[2019-03-24] MEDS: LYRICA PO SCH ×2 (08:29→20:30)
[2019-03-24] MEDS: ATARAX PO SCH ×3 (08:30→20:30)
[2019-03-24] MEDS: VITAMIN B-12 PO SCH (08:30)
[2019-03-24] MEDS: MS CONTIN PO SCH ×2 (08:30→20:30)
[2019-03-24] MEDS: CYMBALTA PO SCH (08:30)
[2019-03-24] MEDS: ALLEGRA PO SCH (08:30)
[2019-03-24] MEDS: LOVENOX SUBQ SCH (08:33)
[2019-03-24] MEDS ORDERED: MOVANTIK PO SCH (09:00)
[2019-03-24] MEDS: NORCO-10 PO PRN (12:47)
[2019-03-24] MEDS: LEVAQUIN 500 MG/D5W 500 MG/100 ML IVPB IV SCH (14:25)
[2019-03-24] MEDS: ROCEPHIN 1 GM in NS 50 ML IV SCH (14:31)
[2019-03-24] MEDS: FOLIC ACID PO SCH (20:30)
[2019-03-24] MEDS: PRAVACHOL PO SCH (20:30)
[2019-03-24] MEDS: FLOMAX PO SCH (20:30)
[2019-03-24] MEDS: MUCINEX DM PO SCH (21:30)
--- NOTE | 2019-03-24 21:42 | PROGRESS NOTE ---
DATE: 03/24/2019 SUBJECTIVE: Upon my arrival this morning, patient was resting in bed. Overall, patient states he continued to feel poorly, although improved from yesterday. He continued to complain of cough and congestion. Shortness of breath was slightly decreased. Throughout the day today, patient did reasonably well. His p.o. intake is improving. He continues to have considerable pain. Medications were adjusted. This evening, patient again is resting in bed. Once again, he complains of cough and congestion but denies fevers and chills. Shortness of breath is improving. OBJECTIVE: T-max 98.2, heart rate 84 to 94, respirations 16 to 22, blood pressure 115 to 134 over 52 to 66.General: Chronically ill appearing, no acute distress. Cardiovascular: Regular rate and rhythm. No significant murmurs, rubs, or gallops. Pulmonary: Crackles at bilateral bases. Occasional wheezes bilaterally. Abdomen: Soft, nontender, nondistended. Positive bowel sounds. Extremities: Moves all extremities well. No significant clubbing, cyanosis, or edema. Dermatologic: Evaluation reveals no evidence of rash. LABORATORY DATA: None. ASSESSMENT AND PLAN: 1. Bronchiectasis exacerbation-blood cultures and sputum cultures are pending. We will continue patient on broad-spectrum antibiotics with levofloxacin and Rocephin therapy. We will continue DuoNeb. We will adjust antibiotics per culture data as it becomes available. 2. Bronchospasm/possible chronic obstructive pulmonary disease exacerbation-patient's wheezing has improved slightly. We will continue patient on DuoNeb and Solu-Medrol. As patient's condition continues to improve, we will consider decreasing his Solu-Medrol dosing. We will encourage incentive spirometry and aspiration precautions. 3. Shortness of breath/hypoxia-this is a consequence of above. We will continue patient on oxygen per protocol. 4. Profound weakness-this is secondary to his acute illness. We will encourage activity. Energy level is slightly improved from yesterday. 5. Folic acid and vitamin B12 deficiencies-we will continue patient on replacement. 6. Anxiety/depression-symptoms are reasonably controlled with Cymbalta therapy. 7. Reflux disease-we will continue patient on a proton pump inhibitor and aspiration precautions. 8. Proton pump inhibitor as needed and aspiration precautions. 9. Hyperlipidemia-we will continue patient on pravastatin therapy. 10. Hypoxia-the patient is treated with nocturnal oxygen at home. We will continue oxygen per protocol while here. 11. Peripheral neuropathy/chronic pain-we will continue patient on his home regimen. 12. Disposition-at this point, patient continues to require prison care in a hospital setting. We will plan discharge home once appropriate. cc: Angel Reyna MD
[2019-03-25] MEDS: DUONEB (A & A) INH SCH ×6 (03:44→23:34)
[2019-03-25] MEDS: SOLU-MEDROL IV SCH ×2 (06:02→18:01)
[2019-03-25] MEDS: NORCO-10 PO PRN (06:09)
[2019-03-25] MEDS: ALLEGRA PO SCH (08:13)
[2019-03-25] MEDS: LOVENOX SUBQ SCH (08:13)
[2019-03-25] MEDS: LYRICA PO SCH ×2 (08:13→22:31)
[2019-03-25] MEDS: CYMBALTA PO SCH (08:13)
[2019-03-25] MEDS: ATARAX PO SCH ×3 (08:13→22:28)
[2019-03-25] MEDS: MS CONTIN PO SCH ×2 (08:14→22:32)
[2019-03-25] MEDS: PERICOLACE PO SCH ×2 (08:14→22:28)
[2019-03-25] MEDS: MUCINEX DM PO SCH ×2 (08:14→22:28)
[2019-03-25] MEDS: VITAMIN B-12 PO SCH (08:14)
--- NOTE | 2019-03-25 10:49 | PROGRESS NOTE ---
DATE: 03/25/2019 SUBJECTIVE: The patient is sitting up on the edge of the bed, changing his shirt on my arrival. He is very energetic and talkative, almost hyperactive. He states that he thinks that his breathing is better, but he is not back to baseline yet. OBJECTIVE: Vital Signs: 98.1, 112, 18, 165/86, 92% saturated on room air. Lungs: The patient has bilateral rhonchi and wheezes. He has fair air movement. His respiratory obstructive pattern has not seemed to affect his ability to talk. He has reasonable air movement. He does have a slightly rattly cough at times. Cardiovascular: Regular at 90 beats per minute at the time of my examination. Extremities: Show no peripheral edema. HEENT: It is noted that the patient is edentulous. LABORATORY DATA: There was no laboratory drawn today. MICROBIOLOGY: The patient's sputum culture showed normal zafar. ASSESSMENT AND PLAN: 1. The patient's bronchiectasis exacerbation appears to be culture negative. He is on antibiotic and steroid therapy with DuoNeb. He seems to have turned the corner and according to my conversation with Dr. Reyna, the patient frequently will have severe exacerbation and then turn rather quickly into his baseline level and recover quite well. I plan to turn down his Solu-Medrol dosing slightly. 2. The patient continues on oxygen protocol. 3. The patient had profound weakness due to his acute illness upon arrival. He seems to have bounced back quite effectively today. 4. Folic acid and B12 deficiencies are noted. 5. The patient has history of anxiety with depression. His usual medications control this reasonably well. He may need a little bit more work on the anxiety if his activity level and relative hyperactivity continues. 6. Reflux, stable on a proton pump inhibitor. 7. Peripheral neuropathy and chronic pain. We are aware of this. 8. Overall, in discussion with the patient and in discussion with Dr. Reyna, we would like to get the patient's overall respiratory cycle a little bit clearer before we think about discharge home. I have turned down the IV steroids. Will continue antibiotics and aerosol treatments and hopefully the patient has begun to turn the corner and will improve his air movement and cough over the next few days. cc: MD Angel Heart MD
[2019-03-25] MEDS: DELSYM LIQUID PO PRN (13:54)
[2019-03-25] MEDS: ROCEPHIN 1 GM in NS 50 ML IV SCH (15:34)
[2019-03-25] MEDS: LEVAQUIN 500 MG/D5W 500 MG/100 ML IVPB IV SCH (15:37)
[2019-03-25] MEDS: PRAVACHOL PO SCH (22:28)
[2019-03-25] MEDS: FLOMAX PO SCH (22:28)
[2019-03-25] MEDS: FOLIC ACID PO SCH (22:28)
[2019-03-26] MEDS: NORCO-10 PO PRN (02:39)
[2019-03-26] MEDS: NS 1,000 ML IV SCH (02:40)
[2019-03-26] MEDS: DUONEB (A & A) INH SCH ×6 (03:32→22:52)
[2019-03-26] MEDS: SOLU-MEDROL IV SCH ×2 (05:59→18:11)
[2019-03-26] MEDS: MOVANTIK PO SCH (05:59)
[2019-03-26] MEDS: LOVENOX SUBQ SCH (09:49)
[2019-03-26] MEDS: LYRICA PO SCH ×2 (09:49→20:40)
[2019-03-26] MEDS: VITAMIN B-12 PO SCH (09:50)
[2019-03-26] MEDS: PERICOLACE PO SCH ×2 (09:50→20:40)
[2019-03-26] MEDS: ATARAX PO SCH ×3 (09:50→20:40)
[2019-03-26] MEDS: MS CONTIN PO SCH ×2 (09:50→20:40)
[2019-03-26] MEDS: CYMBALTA PO SCH (09:50)
[2019-03-26] MEDS: ALLEGRA PO SCH (09:50)
--- NOTE | 2019-03-26 12:16 | PROGRESS NOTE ---
DATE: 03/26/2019 SUBJECTIVE: The patient has no complaints. He is up and down the halls, cannot seem to sit still. The patient's family acknowledges this but says it is fairly normal for him. They state that he has not slept in a number of days. When I quizzed them about different medications that have been tried, they stated multiple times, "most medicines work the opposite on him". He does not take anything for sleep at home. OBJECTIVE: Vital Signs: Last measured temperature is 98.2 degrees, pulse rate is 87, respirations 18, blood pressure 164/77, 94% saturated on 2 L nasal cannula. Physical Examination: The patient is talking very rapidly. He seems to make sense. In examining the patient's lungs, when he is asked to breathe, he breathes very rapidly and wheezes all over. When I ask him to breathe more naturally or distract him, his respiratory cycle return to normal and his air movement is much improved. Even in the more calm moments of his respiratory cycle, he still has some expiratory wheezing which seems to be a little more prominent in the left lung. Extremities show no peripheral edema. Laboratory Data: There were no labs ordered today. ASSESSMENT AND PLAN: 1. The patient's bronchiectasis exacerbation is culture negative. He is on antibiotic and steroid therapy. We reduced steroids slightly yesterday. He seems to be continuing gradual improvement. 2. Oxygen protocol in place. 3. The patient was up walking in the [place], so he is clearly turned the corner on the profound weakness that he has. The patient's family states that he will go for 3 or 4 days without sleeping and then he will sleep for 2 to 3 days until he recovers. 4. Folic acid and B12 deficiencies were noted and the patient is being treated appropriately. 5. The patient's history of anxiety with depression is noted. I am going to try him on some mirtazapine at night for sleep and see if that has any effects. Hopefully, it will not have any negative effects. 6. Gastroesophageal reflux is stable. 7. Peripheral neuropathy and chronic pain. He is being treated with medications, the same as he is on at home. 8. We will continue gradual reduction in steroid, respiratory therapy and hopefully be able to get him home in a few days. cc: MD Angel Heart MD
[2019-03-26] MEDS: LEVAQUIN 500 MG/D5W 500 MG/100 ML IVPB IV SCH (13:22)
[2019-03-26] MEDS: ROCEPHIN 1 GM in NS 50 ML IV SCH (13:22)
[2019-03-26] MEDS: MUCINEX DM PO SCH ×3 (14:53→20:40)
[2019-03-26] MEDS: DELSYM LIQUID PO PRN (16:34)
[2019-03-26] MEDS: PRAVACHOL PO SCH (20:39)
[2019-03-26] MEDS: FOLIC ACID PO SCH (20:40)
[2019-03-26] MEDS: NICODERM PATCH TD SCH (20:40)
[2019-03-26] MEDS: FLOMAX PO SCH (20:40)
[2019-03-26] MEDS ORDERED: REMERON SOLTAB PO SCH (21:00)
[2019-03-27] MEDS: DUONEB (A & A) INH SCH ×5 (03:11→19:57)
[2019-03-27] MEDS: SOLU-MEDROL IV SCH (05:28)
[2019-03-27] MEDS: MOVANTIK PO SCH (06:13)
[2019-03-27] MEDS: MS CONTIN PO SCH (08:30)
[2019-03-27] MEDS: LYRICA PO SCH (08:31)
[2019-03-27] MEDS ORDERED: PREDNISONE PO ONE (08:31)
[2019-03-27] MEDS: ATARAX PO SCH ×2 (08:32→16:34)
[2019-03-27] MEDS: CYMBALTA PO SCH (08:32)
[2019-03-27] MEDS: MUCINEX DM PO SCH (08:32)
[2019-03-27] MEDS: ALLEGRA PO SCH (08:32)
[2019-03-27] MEDS: PERICOLACE PO SCH (08:32)
[2019-03-27] MEDS: VITAMIN B-12 PO SCH (08:32)
[2019-03-27] MEDS: LOVENOX SUBQ SCH (08:33)
[2019-03-27] MEDS: NICODERM PATCH TD SCH (08:33)
[2019-03-27] MEDS: ROCEPHIN 1 GM in NS 50 ML IV SCH (15:36)
[2019-03-27] MEDS: LEVAQUIN 500 MG/D5W 500 MG/100 ML IVPB IV SCH (16:33)
[2019-03-27 19:54] VITALS: BP 155/76
--- NOTE | 2019-03-27 21:33 | DISCHARGE SUMMARY ---
ADMISSION DATE: 03/23/2019 DISCHARGE DATE: 03/27/2019 ADMISSION DIAGNOSIS: 1. Cough. 2. Congestion. DISCHARGE DIAGNOSES: 1. Bronchiectasis exacerbation, improving. 2. Bronchospasm, improving. 3. Shortness of breath, improving . 4. Profound weakness, improving. 5. Folic acid and vitamin B12 deficiencies, present on arrival. 6. Anxiety/depression, present on arrival. 7. Reflux disease, present on arrival 8. Hyperlipidemia, present on arrival 9. Hypoxia, present on arrival. 10. Peripheral neuropathy, present on arrival. CONSULTATIONS: None. PROCEDURES: A chest x-ray was performed on 03/23/2019 which revealed mild interval worsening . HISTORY AND PHYSICAL EXAMINATION: See admit note. PHYSICAL EXAMINATION PRIOR TO DISCHARGE: Temperature 97.9 degrees, heart rate 89, respirations 20, blood pressure is 155/76. General: Chronically ill appearing, no acute distress. Cardiovascular: Regular rate and rhythm. No significant murmurs, rubs or gallops. Pulmonary: Occasional wheeze and rhonchi/crackles at the left base. Adequate air movement. Abdomen: Soft, nontender, nondistended. Positive bowel sounds. Extremities: Moves all extremities well. No significant clubbing, cyanosis or edema. Dermatologic: Evaluation reveals no evidence of rash. LABORATORY DATA: Prior to discharge none. HOSPITAL COURSE: Patient was admitted as per history and physical examination. Hospital course per condition is as follows. 1. Bronchiectasis exacerbation-upon admission, patient was noted to have considerable cough, congestion and profound weakness. Full evaluation suggested underlying bronchiectasis exacerbation. Blood cultures and sputum cultures were drawn which returned negative. Patient was placed on broad-spectrum antibiotics with levofloxacin and Rocephin therapy. With intervention, patient achieved improvement. At time of discharge patient's pulmonary status is approaching baseline. Patient will be discharged home on 7 additional days on levofloxacin and doxycycline therapy. We will continue treatment for his bronchospasm as described below. 2. Bronchospasm-upon admission patient was noted to have considerable bronchospasm on examination. Patient was started on IV Solu-Medrol and DuoNeb. While hospitalized, patient achieved improvement in his overall condition. At time of discharge patient had been transitioned to oral prednisone. Patient will be discharged on a steroid taper starting at prednisone 30 mg day 1 decreasing 5 mg daily until off. We will continue DuoNeb routinely at home. 3. Shortness of breath-while hospitalized, patient achieved significant improvement in his condition. We will continue aggressive pulmonary toilet as described above. We will continue oxygen at nighttime at home. 4. Profound weakness-patient achieved significant improvement while hospitalized. At time of discharge his weakness was approaching baseline. 5. Folic acid and vitamin B12 deficiencies-patient was maintained on replacement while hospitalized. 6. Anxiety/depression-patient is treated with Cymbalta therapy. Symptoms remained controlled while hospitalized. 7. Reflux disease-symptoms remained adequately controlled with a proton pump inhibitor. We will continue this as an outpatient. 8. Hyperlipidemia-the patient is treated with pravastatin therapy as an outpatient. This was continued while hospitalized successfully. We will follow this as an outpatient. 9. Hypoxia-patient is treated with nocturnal oxygen at home. While hospitalized he was treated with oxygen per protocol. We will resume nocturnal oxygen at discharge. Next 10. Peripheral neuropathy/chronic pain-patient was maintained on his home medications. DISCHARGE CONDITION: Good . DISPOSITION: Discharge to home. MEDICATIONS: 1. Mucinex DM 1 tablet twice daily. 2. Prednisone 10 mg tablets start 30 mg day 1 and decrease 5 mg daily until off. 3. Levofloxacin 500 mg daily. 4. Mirtazapine 15 mg at bedtime. 5. Doxycycline 100 mg twice daily for 7 days. 6. Tamsulosin 0.4 mg at bedtime. 7. Pravastatin 40 mg at bedtime. 8. Lyrica 200 mg twice daily. 9. Cymbalta 60 mg daily. 10. Vitamin B12 1000 mcg daily. 11. Folic acid 1 mg at bedtime. 12. MS Contin 30 mg every 12 hours. 13. DuoNeb 3 times daily. 14. Senna-S 1 tablet twice daily. 15. Hydroxyzine 50 mg 3 times daily. 16. Movantik 25 mg daily. 17. Mildred 180 mg daily. 18. Prilosec 40 mg daily as needed. 19. Tylenol 650 mg every 6 hours as needed. 20. [place] 10/325 as needed. 21. Phenergan 25 mg every 6 hours as needed. FOLLOWUP: The patient is follow with me in approximately 1 to 2 weeks. cc: MD ABUNDIO Rosa
== END 2019-03-27 20:14 | disposition home or self-care (01) ==
LOC: DIRADM 13:26 → EDIPHOLD 13:39 → 3N 16:42
PROVIDERS: ADMIT Internal Medicine; ATTEND Internal Medicine

== ENCOUNTER 2019-06-05 16:18 | Inpatient (IN) ==
[2019-06-05 17:12] LABS: BASO# 0.04 X1000 (0.0-0.2); BASO% 0.4 % (0.0-0.8); HEMATOCRIT 47.7 % (42.0-52.0); HEMOGLOBIN 15.5 g/dL (14.0-18.0); IMM GRAN# 0.05 X1000 (0.0-0.04); IMM GRAN% 0.5 % (0.0-0.5); LYMPH# 2.85 X1000 (1.2-3.4); LYMPH% 29.1 % (20.5-51.1); MCH 27.3 PG (27-31); MCHC 32.5 g/dL (33-37); MCV 84.1 FL (81-99); MONO% 9.2 % (1.7-9.3); MPV 9.6 FL (7.4-10.4); NEUT# 5.75 X1000 (1.4-6.5); NEUT% 58.8 % (42.2-75.2); PLT 357 X1000 (130-400); RBC 5.67 XMIL (4.7-6.1); RDW 15.7 % (11.5-14.5); WBC 9.79 X1000 (4.8-10.8)
[2019-06-05 17:26] LABS: AGAP 12; ALB/GLOB RATIO 1.5; ALKALINE PHOSPHATASE 96 U/L (32-122); BUN 24 mg/dL (8-22); CALCIUM 9.4 mg/dL (8.8-10.2); CHLORIDE 107 mmol/L (98-107); COSMO 287; CREATININE 0.9 mg/dL (0.7-1.2); ESTIMATED GFR > 60; GLUCOSE 122 mg/dL (70-104); GOT 21 U/L (10-34); GPT 8 U/L (10-44); LIPASE 12 U/L (13-60); POTASSIUM 4.9 mmol/L (3.5-5.1); SODIUM 141 mmol/L (136-145); TCO2 22 mmol/L (25-35); TOTAL BILIRUBIN 0.51 mg/dL (0.20-1.00); TOTAL PROTEIN 6.6 g/dL (6.3-8.3)
--- NOTE | 2019-06-05 19:24 | Diag Imaging Result Doc PS360 ---
CT ABDOMEN/PELVIS W/O CONTRAST - 06/05/2019 INDICATION: nausea and vomiting COMPARISON: 05/11/2019 FINDINGS: There is significant bronchiectasis in the lung bases mainly in the left lower lobe. There is also multifocal linear scarring and COPD. No dense infiltrates. Heart size is normal with no pericardial effusion. There is a tiny nonobstructing left renal stone. 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 There is severe constipation. No bowel obstruction or inflammation. Stable enlarged prostate. Urinary bladder and rectum are normal. Stable cholecystectomy clips. Stable hardware at the right acetabulum and right femoral neck. No acute fractures. IMPRESSION: Moderate constipation. Tiny nonobstructing left renal stone. Significant bronchiectasis in the lung bases. This exam was performed using automated exposure control, adjustment of mA or kV according to patient size, and/or use of iterative reconstruction technique Electronically signed by Joe Penny 06/05/2019 7:22 PM
--- NOTE | 2019-06-05 19:53 | PROVIDER DOCUMENTATION ---
HPI-Abdominal Pain/GI Problem - General Chief Complaint: Abdominal Pain Stated Complaint: ABD PAIN,NAUSEA,VOMITING Time Seen by Provider: 06/05/19 17:27 Source: patient Allergies/Adverse Reactions: Patient Allergies Allergy/AdvReac Type Severity Reaction Status Date / Time No Known Allergies Allergy Verified 05/23/19 17:43 Home Medications: Home Medication List Medication Instructions Recorded Confirmed Last Taken Type Tamsulosin [Flomax] 0.4 mg PO HS 04/20/12 05/23/19 03/22/19 20:00 History PRAVAstatin [Pravachol] 40 mg PO QHS #0 tablet 01/12/15 05/23/19 03/22/19 20:00 Rx Pregabalin [Lyrica] 200 mg PO BID #0 capsule 01/12/15 05/23/19 03/22/19 20:00 Rx Duloxetine [Cymbalta] 60 mg PO DAILY 04/19/17 05/23/19 03/22/19 07:00 History Cyanocobalamin [Vitamin B-12] 1,000 microgm PO DAILY tablet 04/21/17 05/23/19 03/08/19 07:00 Rx Folic Acid 1 mg PO HS tablet 11/10/17 05/23/19 03/22/19 20:00 Rx Morphine E.r. [Ms Contin] 30 mg PO Q12HR tablet 02/25/18 05/23/19 03/22/19 20:00 Rx Albuterol 2.5MG/Ipratrop 0.5MG 3 ml INH RTTID neb 03/16/18 05/23/19 03/08/19 17:00 Rx [Duoneb (A & A)] Hydroxyzine [Atarax] 50 mg PO TID@0900,1500,2100 tab 10/29/18 05/23/19 03/23/19 15:00 Rx Fexofenadine [Mildred] 180 mg PO DAILY 01/21/19 05/23/19 03/22/19 07:00 History Naloxegol Oxalate [Movantik] 25 mg PO DAILY 01/21/19 05/23/19 03/22/19 07:00 History Omeprazole [Prilosec] 40 mg PO DAILY PRN PRN 01/21/19 05/23/19 03/22/19 08:00 History Acetaminophen [Tylenol] 650 mg PO Q6H PRN PRN tab 02/18/19 05/23/19 Unknown Rx Hydrocodone/Acetaminophen [[place] 325 mg PO PRN PRN 03/24/19 05/23/19 Unknown History 10-325 Tablet] Guaifenesin/Dm E.r. [Mucinex Dm] 1 ea PO BID tab 03/27/19 05/23/19 Unknown Rx Mirtazapine Rapdis [Remeron Soltab] 15 mg PO QHS #30 tab 03/27/19 05/23/19 Unknown Rx Promethazine [Phenergan] 25 mg PO Q6H PRN PRN #20 tab 03/27/19 05/23/19 Unknown Rx Amoxicillin/Pot Clavulanate 875 mg PO Q12HR #14 tab 05/25/19 Unknown Rx [Augmentin] Prednisone 5 mg PO DAILY #30 tab 05/25/19 Unknown Rx Sennosides/Docusate Sodium 1 ea PO BID tab 05/25/19 Unknown Rx [Pericolace] - History of Present Illness-ABD Nature of Presenting Problems: 84 YO M with a host of medical problems well known to Dr. Reyna, who is PCP, presents with c/o nausea, coughing up yellow mucous, and anorexia x 4 days. Pt is at bedside and she states pt has been weak and in bed for the past few days. Pt has c/o chills and insomnia. Abdominal Pain Onset Location: reports: generalized abdomen Pain Radiation: reports: no radiation Quality of Pain: reports: fullness Onset/Duration: reports: 4 days ago Timing: reports: still present Exposure to sick contacts?: No Modifying Factors: improves with: nothing Associated Symptoms: reports: cough, weakness. denies: chest pain, constipation, diarrhea, dizziness Last BM: 4 days ago Dark Stools Present?: reports: none noticed Bruising or Bleeding Gums?: No Similar Symptoms Previously?: Yes Recently seen or treated by another doctor?: Yes (Dr. Reyna) Review of Systems - Adult - REVIEW OF SYSTEMS - ADULT Constitutional: reports: chills Eyes: reports: no symptoms reported Ears, Nose, Mouth & Throat: reports: no symptoms reported Cardiovascular: reports: no symptoms reported Respiratory: reports: see HPI, cough Gastrointestinal: reports: see HPI Genitourinary: reports: no symptoms reported Musculoskeletal: reports: no symptoms reported Integumentary: reports: no symptoms reported Neurological: reports: no symptoms reported Psychiatric: reports: no symptoms reported Endocrine: reports: no symptoms reported Past History - Adult - PAST MEDICAL HISTORY-ADULT Review of Records: reports: Old Records Reviewed, Medications Reviewed, Social history reviewed & non-contributory. Major Childhood Illnesses: reports: denies history Cardiovascular: reports: HTN, hyperlipidemia. denies: cardiac disease Respiratory: reports: COPD, cancer (lung), other (CHRONIC BRONCHIETASIS, COPD, SMOKER , DR WU) Gastrointestinal: reports: diverticulosis, IBS, obstruction, pancreatitis, other Obstetrical/Gynecological: reports: denies history Genitourinary: reports: prostatitis, prostate cancer Musculoskeletal: reports: chronic pain Neurological: reports: dementia, other (CHRONIC PAIN FUL NEUROPATHY- [place] PAIN W/ SM30MG BID AND NORCO) Psychiatric: reports: anxiety Endocrine/Immune: reports: Diabetes Other Conditions: reports: cataract/glaucoma - PRIOR SURGERIES/PROCEDURES Surgical/Procedure History: reports: appendectomy, cholecystectomy, hernia repair, orthopedic (extremity) (hip), back/neck, other (cataract removal; lung biopsy; R kidney) - PRIOR HOSPITALIZATIONS Prior Hospitalizations: reports: for other non-related - IMMUNIZATION STATUS Childhood Immunizations: UTD, See Nurse Assessment Flu Vaccine: See Nurse Assessment - FAMILY HISTORY Family History: reviewed, not pertinent - SOCIAL HISTORY Substance Use: denies Living Situation: family Physical Exam-General - PHYSICAL EXAM-ADULT Initial Vital Signs Reviewed: Yes - CONSTITUTIONAL General Appearance: alert, no apparent distress - EYES Eyes: PERRL/EOMI, pink conjunctivae - HEAD, EARS, NOSE, MOUTH & THROAT HENMT: normocephalic/atraumatic - NECK Neck: supple - RESPIRATORY Respiratory: crackles (lower lung bases) - CARDIOVASCULAR Cardiovascular: regular rate, rhythm, no edema - GASTROINTESTINAL (ABDOMEN) Abdominal Exam: non tender, soft. negative: guarding, rigid, hernia - MUSCULOSKELETAL Back Exam: no CVA tenderness - SKIN Integumentary: normal color, warm/dry - NEUROLOGIC Neurologic: grossly normal - PSYCHIATRIC Psych/Mental Status: normal mood/affect, oriented x 3 Progress - PLAN OF CARE/RESULTS Progress/Plan/Lab Results: Vital Signs - 8 hr 06/05/19 16:28 Temperature 97.3 F L Pulse Rate 93 H Respiratory Rate 16 Blood Pressure 119/78 O2 Sat by Pulse Oximetry 94 L Laboratory Results - last 24 hr 06/05/19 06/05/19 16:45 16:45 WBC 9.79 RBC 5.67 Hgb 15.5 Hct 47.7 MCV 84.1 MCH 27.3 MCHC 32.5 L RDW Std Deviation 15.7 H Plt Count 357 MPV 9.6 Immature Gran % (Auto) 0.5 Neut % (Auto) 58.8 Lymph % (Auto) 29.1 Gates % (Auto) 9.2 Eos % (Auto) 2.0 Baso % (Auto) 0.4 Immature Gran # (Auto) 0.05 H Neut # (Auto) 5.75 Lymph # (Auto) 2.85 Gates # (Auto) 0.90 H Eos # (Auto) 0.20 Baso # (Auto) 0.04 Sodium 141 Potassium 4.9 Chloride 107 Carbon Dioxide 22 L Anion Gap 12 BUN 24 H Creatinine 0.9 Estimated GFR/1.73 m2 > 60 BUN/Creatinine Ratio 27 Glucose 122 H Calculated Osmolality 287 Calcium 9.4 Total Bilirubin 0.51 AST 21 ALT 8 L Alkaline Phosphatase 96 Total Protein 6.6 Albumin 4.0 Globulin 2.6 Albumin/Globulin Ratio 1.5 Lipase 12 L Orders Category Date Time Status NEWS Score 2-4:Order NEWS Lactate Series NOW Care 06/05/19 16:33 Active NPO Diet 06/05/19 16:[address] ABDOMEN/PELVIS W/O CONTRAST [CT] Stat Exams 06/05/19 17:27 Completed CBC WITH DIFF [HEME] Stat Lab 06/05/19 16:45 Completed COMPREHENSIVE METABOLIC PANEL [CHEM] Stat Lab 06/05/19 16:45 Completed LACTATE, PLASMA [CHEM] Lab 06/05/19 19:45 Uncollected LACTATE, PLASMA [CHEM] Lab 06/05/19 22:45 Uncollected LACTATE, PLASMA [CHEM] Q3H Lab 06/05/19 17:03 Ordered LIPASE [CHEM] Stat Lab 06/05/19 16:45 Completed UA [URINALYSIS W/POSS RFLX CULT] [URINALYSIS] Stat Lab 06/05/19 17:28 Uncollected Abd Pain/OB <20 weeks Stat Oth 06/05/19 16:35 Ordered Result Diagrams: 06/05/19 16:45 06/05/19 16:45 - CT/MRI 1 CT Study: Abdomen, Pelvis Impression: See EMR Report (CT ABDOMEN/PELVIS W/O CONTRAST - 06/05/2019 INDICATION: nausea and vomiting COMPARISON: 05/11/2019 FINDINGS: There is significant bronchiectasis in the lung bases mainly in the left lower lobe. There is also multifocal linear scarring and COPD. No dense infiltrates. Heart size is normal with no pericardial effusion. There is a tiny nonobstructing left renal stone. 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 There is severe constipation. No bowel obstruction or inflammation. Stable enlarged prostate. Urinary bladder and rectum are normal. Stable cholecystectomy clips. Stable hardware at the right acetabulum and right femoral neck. No acute fractures. IMPRESSION: Moderate constipation. Tiny nonobstructing left renal stone. Significant bronchiectasis in the lung bases. This exam was performed using automated exposure control, adjustment of mA or kV according to patient size, and/or use of iterative reconstruction technique Electronically signed by Joe Penny 06/05/2019 7:22 PM 06/05/191921 Interpreting Physician: Joe Penny MD) - CONSULTS/PCP/HOSPITALIST Notification #1 *Consult/PCP/Hospitalist*: Dr. Reyna Time Discussed: 20:06 Consult Disposition: Will see in ED, Admit Departure - Departure Date of Disposition Decision: 06/05/19 Time of Disposition Decision: 19:53 DIAGNOSIS: Constipation, Bronchiectasis, Intractable nausea and vomiting Disposition: ADMITTED INPATIENT 09 Certified Medical Emergency: Emergent Condition: Stable Referrals and Follow-Ups: Angel Reyna MD [Primary Care Provider] - - Critical Care Note This patient required my direct & personal management of CC.: No Attestation - Physician/ FLIP Attestation Patient care was provided by Advanced Practice Provider:: No The physician spent face to face time with patient:: Yes Advanced Practice Provider documentation review:: Supervising physician onsite and consulted in the evaluation and care of this patient. The physician did have a face to face encounter with the patient.
[2019-06-05] MEDS ORDERED: NS 1,000 ML IV ONE (20:12)
--- NOTE | 2019-06-05 21:03 | HISTORY AND PHYSICAL ---
PRIMARY CARE PHYSICIAN: Dr. Angel Reyna. CHIEF COMPLAINT: Cough, congestion, anorexia. HISTORY OF PRESENT ILLNESS: An 84-year-old, white male with a complicated past medical history presents for evaluation of above-mentioned symptoms. Pertinent history of present illness began on 05/23/2019. At that time, patient was admitted to the hospital with weakness, cough, congestion, and anorexia. The patient was placed on IV fluids. Treatment for acute exacerbation of bronchiectasis was pursued with Zosyn therapy. The patient's overall condition rapidly improved. He was discharged home on 05/25/2019. Initially, while home, patient states he did very well. He was discharged with Augmentin therapy. Within approximately two to three days, patient's overall condition began to decline. Since , patient has had profound weakness. Oral intake has been minimal. Per patient's , he has not been out of the bed for a prolonged period of time. The patient complains of cough and congestion. Cough is productive of a purulent sputum. He has had chills, but no fevers. His shortness of breath is approximately at baseline. In addition, patient has had abdominal discomfort as well as nausea. Bowel movements continue to be routine. Because of his progressive symptoms, he presented to the emergency department for further evaluation and management. Full evaluation was pursued. CT scan of the abdomen and pelvis suggested moderate constipation, a tiny nonobstructing left renal stone, and significant bronchiectasis in the lung bases. Patient will be admitted to the hospital for full evaluation and management of a presumed bronchiectasis exacerbation. PAST MEDICAL HISTORY: 1. Multiple actinic keratoses and seborrheic keratoses. 2. Acute cholecystitis status post laparoscopic cholecystectomy in 1984. 3. History of recurrent pancreatitis, last in September 2007. 4. Folic acid deficiency. 5. Vitamin B12 deficiency. 6. Anxiety. 7. Benign prostatic hypertrophy. 8. Bronchiectasis. 9. Right bundle branch block. 10. Chest discomfort with negative cardiac evaluation in 2012. 11. Dementia. 12. Depression. 13. Type 2 diabetes. 14. Insomnia. 15. History of diverticulitis in the . 16. Reflux disease. 17. Hypertension. 18. Hypertriglyceridemia. 19. History of T12 compression fracture in 2010. 20. History of right inguinal hernia status post surgical intervention in 2015. 21. Hyperlipidemia. 22. Hypoxia treated with nocturnal oxygen. 23. Irritable bowel syndrome. 24. Low back pain. 25. Longstanding tobacco use. 26. History of a pulmonary nodule in [address] Loera. 27. Appendicitis status post open appendectomy in 1969. CURRENT MEDICATIONS: 1. Acetaminophen 325 mg two tablets every six hours as needed. 2. Duloxetine 60 mg daily. 3. Fexofenadine 180 mg daily as needed. 4. Folic acid 1 mg daily. 5. Hydroxyzine 25 mg every six hours as needed. 6. DuoNeb three times daily. 7. Lyrica 200 mg twice daily. 8. MiraLAX 17 grams in eight ounces of juice daily as needed. 9. Movantik 25 mg daily. 10. MS Contin 30 mg twice daily. 11. Omeprazole 40 mg daily. 12. Pravastatin 40 mg at bedtime. 13. Phenergan 25 mg every four to six hours as needed. 14. Senna S twice daily as needed. 15. Tamsulosin 0.4 mg daily. 16. Vitamin B12 1000 mcg daily. 17. Prednisone 5 mg daily. ALLERGIES: Patient answered no known drug allergies. SOCIAL HISTORY: Patient continues to smoke routinely. He smoked as much as two packs per day for 26 years. He previously use alcohol. He denies illicit drug use. 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 He enjoys watching sports. He exercises by walking or on a stationary bike. FAMILY HISTORY: Patient's father passed at age 86 secondary to complications of stroke. Patient's mother passed at age 92 secondary to complications of leukemia. REVIEW OF SYSTEMS: A 12 point review of systems was performed. Pertinent positives and negatives are noted in history present illness. PHYSICAL EXAMINATION: VITAL SIGNS: Temperature 97.3 degrees, heart rate 93, respirations 16, blood pressure 119/78. GENERAL: Chronically ill appearing, no acute distress. HEENT: Normocephalic, atraumatic. Pupils equal, round, reactive to light. Extraocular muscles intact. Sclerae anicteric. [place] conjunctivae. Oral and nasopharynx clear without exudate. NECK: Supple. No lymphadenopathy. No thyromegaly. No bruits auscultated. CARDIOVASCULAR: Regular rate and rhythm. No significant murmurs, rubs, or gallops. PULMONARY: Crackles at the left base. Adequate air movement. ABDOMEN: Soft, nontender, nondistended. Positive bowel sounds. EXTREMITIES: Moves all extremities well. No significant clubbing, cyanosis, or edema. NEUROLOGIC: Cranial nerves II-XII grossly intact. Motor and sensory grossly intact. PSYCHOLOGIC: Examination is appropriate. LABORATORY DATA: White blood cell count 9.79, hemoglobin 15.5, hematocrit 47.7, platelet count 357,000. Sodium 141, potassium 4.9, chloride 107, bicarb 22, BUN 24, creatinine 0.9, glucose 122, calcium 9.4, total bilirubin 0.51, total protein 6.6, albumin 4.0, alkaline phosphatase 96, AST 21, ALT 8, lipase 12. IMAGING: CT scan of the abdomen and pelvis is as described above. ASSESSMENT AND PLAN: An 84-year-old, white male with a complicated past medical history presents for evaluation of cough, congestion, nausea, and essentially failure to thrive. Unfortunately, patient has had multiple exacerbations similar to this. Most recently was last month. Patient was treated with Zosyn therapy followed by Augmentin. The question is raised whether this is not an appropriate antibiotic or if patient was only partially treated. We will attempt to check sputum cultures again. We will start patient on cefepime, but add doxycycline for possible methicillin-resistant Staphylococcus aureus and atypical coverage. We will aggressively hydrate as he does appear to be dehydrated. We will follow this closely. 1. Admit to General Medicine. 2. Acute exacerbation of bronchiectasis-as above, patient has had multiple admissions. We will check sputum cultures and blood cultures. We will initiate cefepime and doxycycline therapy. We will continue DuoNeb three times daily. Encourage aspiration precautions and incentive spirometry. We will follow this. 3. Anorexia-unfortunately, patient has had minimal oral intake over the last four days. We will initiate intravenous hydration. We will treat patient's bronchiectasis as noted. We will encourage oral intake. 4. Nausea-patient has longstanding, significant nausea. This likely is multifactorial. We will treat conditions as noted. We will initiate as needed intravenous Phenergan. 5. Dehydration-we will start patient on intravenous fluids. We will follow this. 6. Depression-we will continue patient on his home medical regimen. Symptoms are reasonably controlled. 7. Hyperlipidemia-we will continue patient on pravastatin therapy. 8. Reflux disease-we will continue patient on omeprazole. We will encourage aspiration precautions. 9. Neuropathy/chronic pain-we will continue patient's home medications. 10. Fluid, electrolytes, nutrition. We will monitor electrolytes. Normal saline 1000 mL bolus followed by 50 mL an hour. Regular diet. 11. Prophylaxis. Patient will be placed on subcutaneous Lovenox. cc: Angel Reyna MD
[2019-06-05] MEDS: MAXIPIME 2 GM/NS 2 GM/100 ML IVPB IV SCH (21:48)
[2019-06-05] MEDS ORDERED: NORCO-10 PO PRN (22:15)
[2019-06-05] MEDS ORDERED: TYLENOL PO PRN (22:15)
[2019-06-05] MEDS ORDERED: PRILOSEC PO PRN (22:15)
[2019-06-05] MEDS ORDERED: PHENERGAN IV PRN (22:15)
[2019-06-05] MEDS: DUONEB (A & A) INH SCH (22:45)
[2019-06-05] MEDS: DOXYCYCLINE 100 MG in NS 250 ML IV SCH (23:05)
[2019-06-05] MEDS: MUCINEX DM PO SCH (23:08)
[2019-06-05] MEDS: PERICOLACE PO SCH (23:08)
[2019-06-05] MEDS: LYRICA PO SCH (23:09)
[2019-06-05] MEDS: ATARAX PO SCH (23:09)
[2019-06-05] MEDS: PRAVACHOL PO SCH (23:10)
[2019-06-05] MEDS: FLOMAX PO SCH (23:10)
[2019-06-05] MEDS: NS 1,000 ML IV SCH (23:10)
[2019-06-05] MEDS: MS CONTIN PO SCH (23:11)
[2019-06-05] MEDS: FOLIC ACID PO SCH (23:11)
[2019-06-05] MEDS: LOVENOX SUBQ SCH (23:12)
[2019-06-05] MEDS: REMERON SOLTAB PO SCH (23:17)
[2019-06-06 07:21] LABS: BASO# 0.03 X1000 (0.0-0.2); BASO% 0.4 % (0.0-0.8); EOS# 0.24 X1000 (0.0-0.7); EOS% 3.4 % (0.0-10.0); HEMOGLOBIN 13.4 g/dL (14.0-18.0); LYMPH# 2.23 X1000 (1.2-3.4); MCH 27.4 PG (27-31); MCHC 31.9 g/dL (33-37); MCV 85.9 FL (81-99); MONO# 0.68 X1000 (0.11-0.59); MONO% 9.8 % (1.7-9.3); MPV 9.4 FL (7.4-10.4); NEUT# 3.78 X1000 (1.4-6.5); NEUT% 54.4 % (42.2-75.2); PLT 315 X1000 (130-400); RBC 4.89 XMIL (4.7-6.1); RDW 15.3 % (11.5-14.5); WBC 6.96 X1000 (4.8-10.8)
[2019-06-06 07:35] LABS: URINE SOURCE CLEAN CATCH
[2019-06-06 07:38] LABS: BILIRUBIN URINE NEGATIVE (NEGATIVE); BLOOD URINE NEGATIVE (NEGATIVE); COLOR YELLOW; GLUCOSE URINE NEGATIVE (NEGATIVE); KETONE URINE TRACE mg/dL (NEGATIVE); LEUKOCYTES URINE LARGE (NEGATIVE); NITRITE URINE NEGATIVE (NEGATIVE); PROTEIN URINE TRACE mg/dL (NEGATIVE); SP GRAVITY URINE 1.029; TURBIDITY URINE CLEAR (CLEAR); UROBILINOGEN URINE NORMAL (NORMAL)
[2019-06-06 07:40] LABS: UR EPITHELIAL CELLS <10 /HPF (<10); URINE BACTERIA NEGATIVE /HPF; URINE RBC <10 /HPF (<10)
[2019-06-06 07:49] LABS: AGAP 9; ALB/GLOB RATIO 1.2; ALBUMIN 3.3 g/dL (3.5-5.0); ALKALINE PHOSPHATASE 79 U/L (32-122); BUN 21 mg/dL (8-22); CALCIUM 8.5 mg/dL (8.8-10.2); CHLORIDE 108 mmol/L (98-107); COSMO 286; CREATININE 0.9 mg/dL (0.7-1.2); ESTIMATED GFR > 60; GLUCOSE 89 mg/dL (70-104); GOT 16 U/L (10-34); GPT 6 U/L (10-44); POTASSIUM 4.3 mmol/L (3.5-5.1); SODIUM 142 mmol/L (136-145); TCO2 25 mmol/L (25-35); TOTAL BILIRUBIN 0.53 mg/dL (0.20-1.00); TOTAL PROTEIN 6.1 g/dL (6.3-8.3)
[2019-06-06 07:55] LABS: URINE YEAST PRESENT
[2019-06-06 07:59] LABS: URINE WBC >40 /HPF (<10)
[2019-06-06] MEDS: DUONEB (A & A) INH SCH ×3 (08:15→19:53)
[2019-06-06] MEDS: MAXIPIME 2 GM/NS 2 GM/100 ML IVPB IV SCH ×2 (08:42→20:48)
[2019-06-06] MEDS: ALLEGRA PO SCH (08:43)
[2019-06-06] MEDS: ATARAX PO SCH ×3 (08:43→20:46)
[2019-06-06] MEDS: VITAMIN B-12 PO SCH (08:43)
[2019-06-06] MEDS: CYMBALTA PO SCH (08:43)
[2019-06-06] MEDS: LYRICA PO SCH ×2 (08:43→20:45)
[2019-06-06] MEDS: MUCINEX DM PO SCH ×2 (08:43→20:47)
[2019-06-06] MEDS: MOVANTIK PO SCH (08:43)
[2019-06-06] MEDS: MS CONTIN PO SCH ×2 (08:43→20:46)
[2019-06-06] MEDS: PERICOLACE PO SCH ×2 (08:43→20:47)
[2019-06-06] MEDS: PREDNISONE PO SCH (08:43)
[2019-06-06] MEDS: DOXYCYCLINE 100 MG in NS 250 ML IV SCH ×2 (10:27→20:46)
[2019-06-06] MEDS: NS 1,000 ML IV SCH (16:09)
[2019-06-06] MEDS: FOLIC ACID PO SCH (20:46)
[2019-06-06] MEDS: FLOMAX PO SCH (20:47)
[2019-06-06] MEDS: PRAVACHOL PO SCH (20:47)
[2019-06-06] MEDS: REMERON SOLTAB PO SCH (20:47)
[2019-06-06] MEDS: LOVENOX SUBQ SCH (20:48)
--- NOTE | 2019-06-06 20:49 | PROGRESS NOTE ---
DATE: 06/06/2019 SUBJECTIVE: Upon my arrival this morning, patient states he slept well. He did note an increase in appetite and was asking for breakfast. His nausea had decreased. His cough and congestion was present, but controlled. Over the course of the day, patient's p.o. intake improved. His energy level is improving. He denies fevers, chills, nausea, vomiting, or chest discomfort. This evening, patient states he continues to have improvement. OBJECTIVE: T-max 98.9 degrees, heart rate 71-98, respirations 14 to 20, blood pressure 113 to 145 over 72 to 84.General: Chronically ill appearing, no acute distress. Cardiovascular: Regular rate and rhythm. No significant murmurs, rubs, or gallops. Pulmonary: Crackles and rhonchi at the left base, slightly improved from yesterday. Adequate air movement. Abdomen: Soft, nontender, nondistended. Positive bowel sounds. Extremities: Moves all extremities well. No significant clubbing, cyanosis, or edema. Dermatologic: Evaluation reveals no evidence of rash. LABORATORY DATA: White blood cell count 6.96, hemoglobin 13.4, hematocrit 42.0, platelet count 315,000. Sodium 142, potassium 4.3, chloride 108, bicarb 25, BUN 21 creatinine 0.9, glucose 89, calcium 8.5, total bilirubin 0.53, total protein 6.1, albumin 3.3, alkaline phosphatase 79, AST 16, ALT 6. Urinalysis revealed large leukocytes. ASSESSMENT AND PLAN: 1. Acute exacerbation of bronchiectasis-overall, patient's condition is improving. Blood cultures are pending. I have asked the nursing staff to obtain a sputum culture. For now, we will continue cefepime, doxycycline, and DuoNeb. We will continue to encourage aspiration precautions and incentive spirometry. 2. Anorexia-the patient has achieved significant improvement while hospitalized. We will continue treatment of bronchiectasis as above that this as this likely contributed to his anorexia. We will also continue IV fluids as noted. 3. Nausea-patient has achieved improvement while hospitalized. We will continue as needed Phenergan. 4. Dehydration-patient is approaching euvolemia. We will continue IV fluids for now. 5. Depression-the patient's symptoms are reasonably controlled with his home medical regimen. 6. Hyperlipidemia-we will continue patient on pravastatin therapy. 7. Reflux disease-we will continue omeprazole and aspiration precautions. 8. Neuropathy/chronic pain-I am concerned the patient's home medications may be contributing to his nausea and anorexia. He understands associated risk. He is followed by a pain specialist. 9. Disposition. At this point, patient continues to require [facility] care in a hospital setting. We will plan discharge home once appropriate. cc: Angel Reyna MD
[2019-06-07] MEDS: LOVENOX SUBQ SCH (01:21)
[2019-06-07 07:52] VITALS: BP 136/66
[2019-06-07] MEDS: DUONEB (A & A) INH SCH (08:45)
[2019-06-07] MEDS: LYRICA PO SCH (08:46)
[2019-06-07] MEDS: MS CONTIN PO SCH (08:47)
[2019-06-07] MEDS: PREDNISONE PO SCH (08:47)
[2019-06-07] MEDS: CYMBALTA PO SCH (08:47)
[2019-06-07] MEDS: MOVANTIK PO SCH (08:47)
[2019-06-07] MEDS: MUCINEX DM PO SCH (08:47)
[2019-06-07] MEDS: ALLEGRA PO SCH (08:47)
[2019-06-07] MEDS: ATARAX PO SCH (08:47)
[2019-06-07] MEDS: PERICOLACE PO SCH (08:47)
[2019-06-07] MEDS: VITAMIN B-12 PO SCH (08:47)
[2019-06-07] MEDS: NS 1,000 ML IV SCH (10:28)
[2019-06-07] MEDS: DOXYCYCLINE 100 MG in NS 250 ML IV SCH (14:25)
[2019-06-07] MEDS: MAXIPIME 2 GM/NS 2 GM/100 ML IVPB IV SCH (14:25)
--- NOTE | 2019-06-07 15:15 | DISCHARGE SUMMARY ---
ADMISSION DATE: 06/05/2019 DISCHARGE DATE: 06/07/2019 ADMISSION DIAGNOSES: 1. Cough. 2. Congestion. 3. Anorexia. DISCHARGE DIAGNOSES: 1. Acute exacerbation of bronchiectasis, improving. 2. Anorexia, improving. 3. Nausea, improving. 4. Dehydration, improving. 5. Depression, present on arrival. 6. Hyperlipidemia, present on arrival. 7. Reflux disease, present on arrival. 8. Neuropathy/chronic pain, present on arrival. CONSULTATIONS: None. PROCEDURES: CT scan of the abdomen and pelvis was performed on 12/16/2002 which revealed moderate constipation. Tiny nonobstructing left renal stone. Significant bronchiectasis in the lung bases. HISTORY AND PHYSICAL EXAMINATION: See admit note. PHYSICAL EXAMINATION PRIOR TO DISCHARGE: Vital Signs: Temperature 98.8 degrees, heart rate 62, respirations 17, blood pressure is 136/66. General: Chronically ill-appearing, no acute distress. Cardiovascular: Regular rate and rhythm. No significant murmurs, rubs, or gallops. Pulmonary: Crackles at bilateral bases, left greater than right. Adequate air movement. Abdomen: Soft, nontender, nondistended. Positive bowel sounds. Extremities: Moves all extremities well. No significant clubbing, cyanosis, or edema. Dermatologic: Evaluation reveals no evidence of rash. LABORATORY DATA: Prior to discharge: None. HOSPITAL COURSE: Patient was admitted as per history and physical examination. Hospital course per condition is as follows: ASSESSMENT AND PLAN: 1. Acute exacerbation of bronchiectasis-upon admission, patient was noted to have cough, congestion, and weakness. Blood cultures were drawn which returned negative. Sputum cultures are pending. The patient was treated with cefepime, doxycycline, and DuoNeb while hospitalized. Incentive spirometry and aspiration precautions were encouraged. Patient's overall condition rapidly improved. At time of discharge, patient states he had returned to baseline. The patient will be discharged home with 2 weeks of doxycycline therapy. We will follow patient's sputum cultures. We will continue DuoNeb 3 times daily. 2. Anorexia-this was noted upon admission. With treatment of his underlying dehydration and bronchiectasis exacerbation, he achieved a rapid improvement. At time of discharge, patient was tolerating p.o. We will encourage aggressive hydration. 3. Nausea-patient has chronic nausea. This likely is a consequence of his narcotic pain intervention. While hospitalized, patient achieved adequate control. We will continue his current regimen and with as needed Phenergan. 4. Dehydration-with aggressive IV hydration, patient achieved euvolemia. We will encourage hydration as an outpatient. 5. Depression-patient was treated with his home medications while hospitalized. Symptoms remained stable. 6. Hyperlipidemia-patient was continued on pravastatin therapy. 7. Reflux disease-symptoms are reasonably controlled with omeprazole therapy. We will remain aware that this could contribute to his nausea. 8. Neuropathy/chronic pain-unfortunately, patient continues to be treated with narcotic pain intervention. He understands this likely is contributing to his nausea and constipation. He is currently followed by a pain specialist. 9. Constipation-the patient was treated with his home medical regimen. This will be continued. DISCHARGE CONDITION: Discharge to home. MEDICATIONS: 1. Doxycycline 100 mg twice daily for 14 days. 2. Omeprazole 40 mg daily. 3. Tamsulosin 0.4 mg at bedtime. 4. Pravastatin 40 mg at bedtime. 5. Lyrica 200 mg twice daily. 6. Cymbalta 60 mg daily. 7. Vitamin B12 1000 mcg daily. 8. Folic acid 1 mg at bedtime. 9. MS Contin 30 mg every 12 hours. 10. DuoNeb 3 times daily. 11. Atarax 50 mg 3 times daily. 12. Movantik 25 mg daily. 13. Mildred 180 mg daily. 14. Tylenol 650 mg every 6 hours as needed. 15. [place] 10/325 as needed, per his pain specialist. 16. Mucinex DM 1 tablet twice daily. 17. Remeron 15 mg at bedtime. 18. Prednisone 5 mg daily. 19. Brielle-Colace 1 tablet twice daily. 20. Phenergan 25 mg every 6 hours as needed. FOLLOWUP: The patient is to follow up with me in approximately 1 to 2 weeks. cc: Angel Reyna MD
== END 2019-06-07 14:25 | disposition home or self-care (01) | DRG 191 ==
LOC: ED 16:18 → 3N 21:44
PROVIDERS: ADMIT Internal Medicine; ATTEND Internal Medicine